=== PATIENT | female | born 1945 | race African-American/Black ===

== ENCOUNTER 2017-04-20 09:10 | Emergency (ER) | payer OTHER ==
[~2017-04-20] VITALS: Ht 162.6 cm; Wt 110.7 kg
[~2017-04-20 09:10] MED LIST: ADVIN25/60 INH; ALBUAER INH; ASPI-232 PO; CARV12.52 PO; CTP1CL PO; GLYB5TAB3 PO; INSDGI SC; LSN/20125 PO; MULTTAB5 PO; NIFE90TA27 PO; OMEGCAP2 PO; PRAV40TA PO; SERT100T PO; SITA100T3 PO; TRAM-453 PO; TYLOTC500 PO; ZNT/150 PO
[2017-04-20 09:13] VITALS: TEMP 37.1; Ht 162.6 cm; Wt 110.7 kg
[2017-04-20] MEDS ORDERED: OXYCODONE HCL IR 5 MG TAB (IMMEDIATE RELEASE) PO STA (09:33)
[2017-04-20] MEDS ORDERED: ONDANSETRON 4MG OD TAB PO STA (10:08)
[2017-04-20 10:11] LABS: BASO % 0.2 %; BASO ABS # 0.02 K/uL (0-0.2); COMPLETE YES; EOS % 0.7 %; HEMATOCRIT 37.7 % (37-47); IG% 0.2 %; LYMPH % 27.8 %; LYMPH ABS # 2.65 K/uL (1.2-3.4); MEAN CELL VOLUME 82.5 fL (80-100); MEAN CORPUSCULAR HEMOGLOBIN 27.4 pg (25-34); MEAN CORPUSCULAR HGB CONC 33.2 g/dl (32-36); MEAN PLATELET VOLUME 10.8 fL (7.4-10.4); MONO % 4.2 %; NEUT % 66.9 %; PLATELET COUNT 224 K/uL (130-400); RED BLOOD COUNT 4.57 M/uL (4.2-5.4); WHITE BLOOD COUNT 9.54 K/uL (4.8-10.8)
[2017-04-20 10:30] LABS: BUN/CREATININE RATIO 14.9 (10-20); CALCIUM 9.7 mg/dl (8.5-10.1); CREATININE 0.88 mg/dl (0.60-1.20); POTASSIUM 4.1 mmol/L (3.5-5.1)
--- NOTE | 2017-04-20 10:31 | DIAGNOSTIC IMAGING REPORT ---
L-SPINE MIN 4 VIEWS ROUTINE HISTORY: Pain Lower L back pain COMPARISON: None. FINDINGS: There is no fracture. No subluxation. Moderate degenerative disc change throughout IMPRESSION: No fracture or subluxation within the lumbar spine. Moderate degenerative change. The above report was generated using voice recognition software. It may contain grammatical, syntax or spelling errors. Electronically signed by: Elton Ceballos M.D. 04/20/2017 10:30 AM Dictated Date/Time: 04/20/2017 10:29 AM
[2017-04-20] MEDS ORDERED: GLC/500 PO (10:32)
[2017-04-20 10:33] LABS: ALB/GLOB RATIO 0.9 (0.9-2)
[2017-04-20] MEDS ORDERED: PRAV80TA2 PO (10:34)
[2017-04-20] MEDS ORDERED: INSDGIPEN SC (10:34)
[2017-04-20] MEDS ORDERED: GLIM4TAB2 PO (10:34)
[2017-04-20 11:24] LABS: URINE APPEARANCE CLEAR (CLEAR); URINE BILIRUBIN NEG (NEG); URINE COLOR YELLOW; URINE NITRITE NEG (NEG); UROBILINOGEN NEG (NEG); ZZUR CULT IF INDIC CLEAN CATCH NO
[2017-04-20 11:29] LABS: MANUAL MICROSCOPIC REQUIRED? NO; REVIEW REQ? NO
[2017-04-20] MEDS ORDERED: OXYC1TAB3 PO (12:28)
--- NOTE | 2017-04-20 12:29 | EMERGENCY ROOM VISIT NOTE ---
History First contact with patient: 09:24 Chief Complaint: BACK PAIN Stated Complaint: LEFT SIDE/BACK PAIN History of Present Illness The patient is a 71 year old female who presents to the Emergency Room via private vehicle with complaints of "left side/back pain". The patient states that she woke up yesterday morning with left-sided posterior back pain that is worse with movement. It also radiates down her left leg. She states that she thought it could be kidney problems and drink lots of water but still persists. She states now retired she moves the pain is worse. There is a positive history of kidney stones. She denies any urinary symptoms, fevers, chills, abdominal pain. There is no new chest pain or shortness of breath. No numbness or tingling in the genital region. No cauda equina syndrome symptoms. Review of Systems A complete 10-point Review of Systems was discussed with the patient, with pertinent positives and negatives listed in the History of Present Illness. All remaining Review of Systems questions can be considered negative unless otherwise specified. Past Medical/Surgical History Diverticulitis, renal calculi Family History No pertinent Social History Smoking Status: Never Smoker Marital Status: Housing Status: lives with significant other Occupation Status: retired Current/Historical Medications Scheduled Aspirin (Aspir-81), 81 MG PO DAILY Carvedilol (Coreg), 12.5 MG PO BID Fluticasone Prop/Salmeterol (Advair Diskus 250/50 60 Dose), 2 PUFF INH BID Glimepiride (Glimepiride), 4 MG PO DAILY Metformin Hcl (Glucophage), 250 MG PO BID Multiple Vitamins W/ Minerals (Centrum), 1 TAB PO DAILY Nifedipine (Nifedipine Er), 90 MG PO BID Polo-3 Fatty Acids (Fish Oil), 1,200 MG PO DAILY Pravastatin Sodium (Pravastatin Sodium), 80 MG PO DAILY Sertraline Hcl (Zoloft), 50 MG PO DAILY Scheduled PRN Clonidine Hcl (Catapres), 0.1 MG PO DAILY PRN Insulin Glargine (Lantus Solostar), 1 DOSE SC AMPM PRN for PER SLIDING SCALE Oxycodone Ir (Roxicodone Ir), 1-2 TAB PO Q4H PRN for Pain Physical Exam Vital Signs Date Time Temp Pulse Resp B/P (MAP) Pulse Ox O2 Delivery O2 Flow Rate FiO2 11/30/17 12:53 65 18 184/78 98 Room Air 04/20/17 10:53 67 20 180/93 95 04/20/17 09:13 37.1 79 18 190/130 96 Room Air Physical Exam VITAL SIGNS - Vital signs and nursing notes were reviewed. Stable, hypertensive. GENERAL -71-year-old female appearing her stated age who is in no acute distress. Communicates well with provider and answers questions appropriately. SKIN - Without rashes. No petechial rashes. HEAD - NC/AT. EYES - Sclera anicteric. EARS - No deformities of external structures noted on gross examination bilaterally. LUNGS - Chest wall symmetric without accessory muscle use, intercostals retractions, or central cyanosis. Normal vesicular breath sounds CTA B/L. No wheezes, rales, or rhonchi appreciated. CARDIAC - RRR with S1/S2. No murmur, rubs, or gallops appreciated. ABDOMEN - Abdominal contour normal without pulsations or visible masses. BS normoactive all four quadrants. No tenderness, palpable masses, hepatosplenomegaly, or ascites noted. EXTREMITIES - No clubbing or peripheral cyanosis. No pretibial edema present. The back elicits tenderness upon palpation of the left inferior lumbar paraspinous musculature. It is worse with range of motion and palpation. +5/5 strength noted in UE/LE bilaterally. NEUROLOGIC - Cranial nerves II through XII grossly intact. Medical Decision & Procedures ER Provider Diagnostic Interpretation: [~ rep ct add3]] ABD/PELVIS WITHOUT FOR STONE CLINICAL HISTORY: 71 years-old Female presenting with L flank pain. TECHNIQUE: Multidetector CT of the abdomen and pelvis was performed without the use of intravenous contrast. IV contrast: None. A dose lowering technique was used consistent with the principles of ALARA (as low as reasonably achievable). COMPARISON: None. CT DOSE (mGy.cm): The estimated cumulative dose is 1580.28 mGy.cm. FINDINGS: Skilled Nursing Facilities Professional topogram: Cholecystectomy clips noted. Lung bases: Minimal dependent changes likely atelectasis. Coronary artery calcification. Normal heart size. Few nonspecific pericardial subcentimeter lymph nodes. No pericardial or pleural effusion. Liver: Normal morphology. Normal density. Surgical clips or surgical material centrally within the liver may relate to prior liver injury or cholecystectomy. Biliary: Mild biliary ductal prominence likely a reservoir effect in the post cholecystectomy state. Gallbladder surgically absent. Pancreas: Normal noncontrast appearance. Spleen: Normal noncontrast appearance. Adrenal glands: Mild nodular thickening of the left adrenal gland, nonspecific. Right adrenal gland normal. Kidneys and ureters: Normal noncontrast appearance. No nephrolithiasis. No hydronephrosis. Normal ureters. Bladder: Mild circumference of bladder wall thickening. Pelvic organs: Calcified fibroid uterus. Normal ovaries. Bowel: Limited diverticulosis of the distal descending and sigmoid colon. Mild stool burden in the more proximal colon. The appendix is normal. No bowel obstruction. Peritoneal cavity: No free fluid or intraperitoneal gas. Lymph nodes: No gross lymphadenopathy allowing for noncontrast technique. Vasculature: Atherosclerosis of the normal caliber abdominal aorta. Abdominal wall: Midline incision suggested in the infraumbilical region. Few intramammary lymph nodes also suggested in the left breast. Nonspecific infiltration of the subcutaneous tissue in the lumbar region. Musculoskeletal: Degenerative changes of the spine. IMPRESSION: 1. Mild circumferential bladder wall thickening could suggest cystitis. Correlate with urinalysis. 2. No nephrolithiasis or other evidence of acute intra-abdominal pathology. Electronically signed by: Jhon Gonzalez M.D. 04/20/2017 12:38 PM Dictated Date/Time: 04/20/2017 12:28 PM L-SPINE MIN 4 VIEWS ROUTINE HISTORY: Pain Lower L back pain COMPARISON: None. FINDINGS: There is no fracture. No subluxation. Moderate degenerative disc change throughout IMPRESSION: No fracture or subluxation within the lumbar spine. Moderate degenerative change. The above report was generated using voice recognition software. It may contain grammatical, syntax or spelling errors. Electronically signed by: Elton Ceballos M.D. 04/20/2017 10:30 AM Dictated Date/Time: 04/20/2017 10:29 AM Laboratory Results 04/20/17 10:00 Red Blood Count 4.57, Mean Corpuscular Volume 82.5, Mean Corpuscular Hemoglobin 27.4, Mean Corpuscular Hemoglobin Concent 33.2, Mean Platelet Volume 10.8, Neutrophils (%) (Auto) 66.9, Lymphocytes (%) (Auto) 27.8, Monocytes (%) (Auto) 4.2, Eosinophils (%) (Auto) 0.7, Basophils (%) (Auto) 0.2, Neutrophils # (Auto) 6.38, Lymphocytes # (Auto) 2.65, Monocytes # (Auto) 0.40, Eosinophils # (Auto) 0.07, Basophils # (Auto) 0.02 04/20/17 10:00 Test 04/20/17 10:00 04/20/17 11:07 White Blood Count 9.54 K/uL (4.8-10.8) Red Blood Count 4.57 M/uL (4.2-5.4) Hemoglobin 12.5 g/dL (12.0-16.0) Hematocrit 37.7 % (37-47) Mean Corpuscular Volume 82.5 fL (80-100) Mean Corpuscular Hemoglobin 27.4 pg (25-34) Mean Corpuscular Hemoglobin Concent 33.2 g/dl (32-36) Platelet Count 224 K/uL (130-400) Mean Platelet Volume 10.8 fL (7.4-10.4) Neutrophils (%) (Auto) 66.9 % Lymphocytes (%) (Auto) 27.8 % Monocytes (%) (Auto) 4.2 % Eosinophils (%) (Auto) 0.7 % Basophils (%) (Auto) 0.2 % Neutrophils # (Auto) 6.38 K/uL (1.4-6.5) Lymphocytes # (Auto) 2.65 K/uL (1.2-3.4) Monocytes # (Auto) 0.40 K/uL (0.11-0.59) Eosinophils # (Auto) 0.07 K/uL (0-0.5) Basophils # (Auto) 0.02 K/uL (0-0.2) RDW Standard Deviation 41.3 fL (36.4-46.3) RDW Coefficient of Variation 13.7 % (11.5-14.5) Immature Granulocyte % (Auto) 0.2 % Immature Granulocyte # (Auto) 0.02 K/uL (0.00-0.02) Anion Gap 11.0 mmol/L (3-11) Est Creatinine Clear Calc Drug Dose 70.4 ml/min Estimated GFR () 76.1 Estimated GFR (Non- 65.6 BUN/Creatinine Ratio 14.9 (10-20) Calcium Level 9.7 mg/dl (8.5-10.1) Total Bilirubin 0.5 mg/dl (0.2-1) Aspartate Amino Transf (AST/SGOT) 11 U/L (15-37) Alanine Aminotransferase (ALT/SGPT) 21 U/L (12-78) Alkaline Phosphatase 83 U/L (45-117) Total Protein 8.1 gm/dl (6.4-8.2) Albumin 3.8 gm/dl (3.4-5.0) Globulin 4.3 gm/dl (2.5-4.0) Albumin/Globulin Ratio 0.9 (0.9-2) Urine Color YELLOW Urine Appearance CLEAR (CLEAR) Urine pH 5.0 (4.5-7.5) Urine Specific [place] 1.020 (1.000-1.030) Urine Protein NEG (NEG) Urine Glucose (UA) NEG (NEG) Urine Ketones NEG (NEG) Urine Occult Blood NEG (NEG) Urine Nitrite NEG (NEG) Urine Bilirubin NEG (NEG) Urine Urobilinogen NEG (NEG) Urine Leukocyte Esterase NEG (NEG) Medications Administered Medications (Trade) Dose Ordered Sig/Arpita Route Start Time Stop Time Status Last Admin Dose Admin Oxycodone HCl (Roxicodone Immediate Rel Tab) 5 mg NOW STAT PO 04/20/17 09:33 04/20/17 09:34 DC 04/20/17 09:47 5 MG Ondansetron HCl (Zofran Odt) 4 mg NOW STAT PO 04/20/17 10:08 04/20/17 10:09 DC 04/20/17 10:14 4 MG Medical Decision Patient was seen and evaluated as above. She presents to us today with left lower lumbar pain. It is reproducible on exam and worse with range of motion. I suspect lumbar strain. She is hypertensive. IV access was initiated, and the above workup was performed. Patient's CBC reveals no concerning abnormality. Metabolic panel no acute process. Random glucose is high at 228. Urine is negative. Lumbar spine x-ray negative. The decision was made to obtain a CT of the abdomen and pelvis to rule out kidney stone. This was negative for you process essentially. Although there was mild bladder wall thickening I do not suspect cystitis as she does not have any evidence on her urinalysis or symptom base. I do suspect again she most likely has a lumbar strain. She was treated here with oxycodone and will be given a short course of this. CMP was reviewed and no red flags were identified. Case was discussed with the attending physician. She is to follow regarding her elevated blood pressure that was found here which I believe secondary to her pain but she is to follow up, and her medication list was reviewed. She was felt stable for outpatient management. She was happy with plan of care. She was educated upon management, educated upon worrisome symptoms which to return, had questions as per discharge, and was discharged home in good condition. In evaluation treatment this patient the following differential diagnoses entertained: Lumbar strain, sprain, fracture, dislocation, renal calculi, and acute intra-abdominal abnormality, among others. Impression Primary Impression: Strain of lumbar region Departure Information Dispostion Home / Self-Care Condition GOOD Prescriptions Oxycodone Ir (Roxicodone Ir) 5 Mg Tab 1-2 TAB PO Q4H Y for Pain, #18 TAB For Initial Treatment Prov: Del Westfall PA-C 04/20/17 Referrals Phyllis Quintanilla M.D. (PCP) Patient Instructions [facility] Additional Instructions You have been treated in the Emergency Department for Back Pain. You have received pain medicine in the emergency department which impairs your ability to operate a vehicle. It is illegal for you to drive after receiving these medicines. You have been prescribed Oxy IR to be used for pain control. This is a narcotic medication. You cannot drive or consume alcohol while on this medicine. This medicine should only be used for pain that cannot be controlled with over-the- counter pain medicines. For pain control, you can use the following [id number] medicines: - Regular strength (325mg/tab) Tylenol (acetaminophen) 2 tabs every 4-6 hours as needed. Do not exceed 12 tablets in a 24 hour period. Avoid taking more than 3 grams (3000 mg) of Tylenol per day. This includes any other sources of acetaminophen you may take on a regular basis. PLEASE DO NOT TAKE WITH NORCO OR HYDROCODONE PREVIOUSLY PRESCRIBED If this is an acute injury, ice can be applied to the area of pain for the first 3 days to help decrease pain and inflammation. After the first 3 days, a heating pad can be used over the area for continued soothing relief. You should schedule a follow-up appointment in 2-3 days with your Primary Care Provider for further evaluation and treatment of your back pain. Return to the Emergency Department if your current symptoms worsen despite treatment course outlined above, or if you develop any of the following symptoms : intractable pain despite aforementioned treatment course, loss of control of your bowel or bladder, numbness or tingling in your groin, or development of a fever.
--- NOTE | 2017-04-20 12:39 | DIAGNOSTIC IMAGING REPORT ---
ABD/PELVIS WITHOUT FOR STONE CLINICAL HISTORY: 71 years-old Female presenting with L flank pain. TECHNIQUE: Multidetector CT of the abdomen and pelvis was performed without the use of intravenous contrast. IV contrast: None. A dose lowering technique was used consistent with the principles of ALARA (as low as reasonably achievable). COMPARISON: None. CT DOSE (mGy.cm): The estimated cumulative dose is 1580.28 mGy.cm. FINDINGS: Store Facility Technician topogram: Cholecystectomy clips noted. Lung bases: Minimal dependent changes likely atelectasis. Coronary artery calcification. Normal heart size. Few nonspecific pericardial subcentimeter lymph nodes. No pericardial or pleural effusion. Liver: Normal morphology. Normal density. Surgical clips or surgical material centrally within the liver may relate to prior liver injury or cholecystectomy. Biliary: Mild biliary ductal prominence likely a reservoir effect in the post cholecystectomy state. Gallbladder surgically absent. Pancreas: Normal noncontrast appearance. Spleen: Normal noncontrast appearance. Adrenal glands: Mild nodular thickening of the left adrenal gland, nonspecific. Right adrenal gland normal. Kidneys and ureters: Normal noncontrast appearance. No nephrolithiasis. No hydronephrosis. Normal ureters. Bladder: Mild circumference of bladder wall thickening. Pelvic organs: Calcified fibroid uterus. Normal ovaries. Bowel: Limited diverticulosis of the distal descending and sigmoid colon. Mild stool burden in the more proximal colon. The appendix is normal. No bowel obstruction. Peritoneal cavity: No free fluid or intraperitoneal gas. Lymph nodes: No gross lymphadenopathy allowing for noncontrast technique. Vasculature: Atherosclerosis of the normal caliber abdominal aorta. Abdominal wall: Midline incision suggested in the infraumbilical region. Few intramammary lymph nodes also suggested in the left breast. Nonspecific infiltration of the subcutaneous tissue in the lumbar region. Musculoskeletal: Degenerative changes of the spine. IMPRESSION: 1. Mild circumferential bladder wall thickening could suggest cystitis. Correlate with urinalysis. 2. No nephrolithiasis or other evidence of acute intra-abdominal pathology. Electronically signed by: Jhon Gonzalez M.D. 04/20/2017 12:38 PM Dictated Date/Time: 04/20/2017 12:28 PM
[2017-04-20 12:53] VITALS: BP 184/78; PULSE 65; O2SAT 98
== END 2017-04-20 13:25 | disposition home or self-care (01) ==
LOC: C.EDB 09:13 → C.EDC 13:25
DX: S39.012A Strain of muscle, fascia and tendon of lower back, initial encounter (principal); X58.XXXA Exposure to other specified factors, initial encounter; K57.92 Diverticulitis of intestine, part unspecified, without perforation or abscess without bleeding; Z87.442 Personal history of urinary calculi; Z79.82 Long term (current) use of aspirin; Z79.84 Long term (current) use of oral hypoglycemic drugs; Z79.899 Other long term (current) drug therapy

== ENCOUNTER 2020-01-15 15:05 | Inpatient (IN) ==
--- NOTE | 2020-01-15 15:38 | Emergency Department Note ---
Impression & Plan SOB (shortness of breath), Weakness, Near syncope, Bradycardia ED Provider Note NAME: VEENA ROBBINS AGE: 74 SEX: F : 1945 ARRIVES VIA: Walk-In INFORMANT: [Patient][friend] ED PROVIDER(S): [Braydon Butler MD] CHIEF COMPLAINT: Shortness of breath and weakness HISTORY OF PRESENT ILLNESS: The patient is a 74-year-old female who has had multiple weeks of fatigue and shortness of breath. She has been dizzy, tired. Exertion makes her symptoms worse. She has had some occasional chest pain from time to time. The patient was taken off of lisinopril and some diabetic medications recently. There have been no medications added. Today, the patient was noted to have a pulse in the 30s. She was sent to this hospital for evaluation. She had been at her primary doctor's office earlier. The patient has no history of ID or bradycardia. She does take Coreg though on a daily basis. There has been no fever, no cough or cold or congestion. No urinary complaints. There has been no syncope. REVIEW OF SYSTEMS: See HPI for pertinent positives and negatives. A total of ten systems were reviewed and were otherwise negative. PMHx/PSHx: See Below SOCIAL HISTORY: See Below. PHYSICAL EXAM: GENERAL: Patient is in no acute distress. HEENT: No acute trauma, normocephalic atraumatic, mucous membranes moist, no nasal congestion, no scleral icterus. NECK: No stridor, no adenopathy, no meningismus, trachea is midline. LUNGS: Clear to auscultation bilaterally, no wheeze, no rhonchi, breath sounds equal. HEART: Bradycardic, slight systolic murmur. There is a regular rhythm. ABDOMEN: Soft, nontender, bowel sounds positive, no hernias, no peritonitis. EXTREMITIES: No cyanosis, mild bilateral pedal edema, full range of motion of all the joints without pain or difficulty, no signs for acute trauma. NEUROLOGIC: Oriented x 3, no acute motor or sensory deficits, no focal weakness. SKIN: No rash, no jaundice, no diaphoresis. DIFFERENTIAL DIAGNOSIS: Infection, dehydration, metabolic abnormality, sick sinus syndrome, medication reaction, AV block, bradycardia, hypo/hyperglycemia, electrolyte disturbance, anemia, hypoxia, cardiac sources, intracerebral event, toxicologic, neurologic, as well as other pathologies. EMERGENCY DEPARTMENT COURSE/PROCEDURES: ECG: Indication was shortness of breath. The ECG shows a significant bradycardia with a rate of 39. The rhythm does seem sinus. The QTc is 405. There is no ST elevation, no PVCs. Continuous Cardiac Monitoring: An order was placed for continuous cardiac monitoring. The monitor shows a rate of 34 with sinus bradycardia. MEDICAL DECISION MAKING: There is no leukocytosis or concerning anemia. There is a normal platelet count. There is a slight elevation to the creatinine 1.38. No concerning electrolyte abnormality. No liver enzyme elevation. The patient appears to be in a euthyroid state. ECG shows a severe sinus bradycardia, no acute ischemic changes. Cardiac enzyme testing x1 is not consistent with acute cardiac injury. Chest film does not show pneumonia, pneumothorax or CHF. On exam, the patient was bradycardic, she was not hypotensive. She was not febrile. She was not hypoxic. The patient presents with fatigue and weakness. She was initially quite br adycardic on the monitor. The patient received IV glucagon, 2 mg. This was recommended by cardiology. This did improve her heart rate to the 60s. The fact that the glucagon made some improvement in the heart rate suggests the beta-kenney therapy may be responsible for the bradycardia. Cardiology was consulted, they recommended the glucagon as mentioned above. The patient is going to be hospitalized. At this point, the beta-kenney therapy seems the likely cause of her bradycardia. Further monitoring is required. Past Med/Surg History Medical History Diabetes mellitus Social History Smoking Status: Never smoker Feels Safe at Home: Yes Allergies Allergies Allergy/AdvReac Type Severity Reaction Status Date / Time No Known Allergies Allergy Mild NONE Unverified 08/15/10 00:12 Home Meds Home Medications Medication Instructions Recorded Confirmed ASPIRIN (ASPIR-81) 81 mg PO DAILY #0 03/18/13 CARVEDILOL (COREG) 12.5 mg PO BID #0 tab 03/18/13 CLONIDINE HCL (Catapres) 0.1 mg PO DAILY PRN #0 tab 03/18/13 FLUTICASONE PROP/SALMETEROL 2 puff INHALATION BID #0 inhaler 03/18/13 (Advair Diskus 250/50 60 Dose) MULTIPLE VITAMINS W/ MINERALS 1 tab PO DAILY #0 03/18/13 (CENTRUM) NIFEDIPINE (NIFEDIPINE ER) 90 mg PO BID #0 03/18/13 OMEGA-3 FATTY ACIDS (FISH OIL) 1,200 mg PO DAILY #0 03/18/13 SERTRALINE HCL (ZOLOFT) 50 mg PO DAILY #0 tab 03/18/13 GLIMEPIRIDE 4 mg PO DAILY 90 Days #90 tab 04/20/17 Insulin Glargine (Lantus Solostar) 1 dose SC AMPM PRN #0 pen 04/20/17 METFORMIN HCL (GLUCOPHAGE) 250 mg PO BID #0 tab 04/20/17 PRAVASTATIN SODIUM 80 mg PO DAILY 90 Days #90 tab 04/20/17 Results & Data (ED) Vital Signs Vital Signs - 24 hr 01/15/20 15:10 01/15/20 15:33 01/15/20 15:36 Temperature 36.6 C Temperature Source Oral Pulse Rate 38 L Pulse Rate [Apical] 34 L Respiratory Rate 28 H 18 Respiratory Effort / Characteristics Short of Breath Non-Labored Respiratory Depth Normal Blood Pressure 152/81 H Blood Pressure [Right Arm] 149/79 H Blood Pressure Mean 104 Blood Pressure Mean [Right Arm] 102 Pulse Oximetry 98 99 99 Oxygen Delivery Method Room Air Room Air Room Air Sepsis Recent Fever Within 48 Hours No Sepsis New/Unexplained Change in Mental Status No Sepsis Action Taken by Nursing No Action Required 01/15/20 15:39 01/15/20 16:25 01/15/20 16:56 Temperature Temperature Source Pulse Rate Pulse Rate [Apical] 64 64 Respiratory Rate 18 18 Respiratory Effort / Characteristics Non-Labored Non-Labored Respiratory Depth Normal Normal Blood Pressure Blood Pressure [Right Arm] 152/80 H 147/94 H Blood Pressure Mean Blood Pressure Mean [Right Arm] 104 111 Pulse Oximetry 99 98 98 Oxygen Delivery Method Room Air Room Air Room Air Sepsis Recent Fever Within 48 Hours Sepsis New/Unexplained Change in Mental Status Sepsis Action Taken by Group Home Medications Current Medication List: was personally reviewed by me Laboratory Data Attestation: I reviewed the patient's lab results. Result diagrams: 01/15/20 15:32 01/15/20 15:32 Lab Results 01/15/20 01/15/20 Range/Units 15:32 15:32 WBC 8.61 (4.8-10.8) K/uL RBC 4.66 (4.2-5.4) M/uL Hgb 12.8 (12.0-16.0) g/dL Hct 38.8 (37-47) % MCV 83.3 (80-100) fL MCH 27.5 (25-34) pg MCHC 33.0 (32-36) g/dL RDW Std Deviation 41.3 (36.4-46.3) fL RDW Coeff of Keyur 13.8 (11.5-14.5) % Plt Count 211 (130-400) K/uL MPV 10.7 H (7.4-10.4) fL Immature Gran % (Auto) 0.1 % Neut % (Auto) 46.8 % Lymph % (Auto) 46.1 % Glades % (Auto) 5.3 % Eos % (Auto) 1.6 % Baso % (Auto) 0.1 % Neut # (Auto) 4.02 (1.4-6.5) K/uL Lymph # (Auto) 3.97 H (1.2-3.4) K/uL Glades # (Auto) 0.46 (0.11-0.59) K/uL Eos # (Auto) 0.14 (0-0.5) K/uL Baso # (Auto) 0.01 (0-0.2) K/uL Immature Gran # (Auto) 0.01 (0.00-0.02) K/uL Sodium 135 L (136-145) mmol/L Potassium 4.4 (3.5-5.1) mmol/L Chloride 104 (98-107) mmol/L Carbon Dioxide 24 (21-32) mmol/L Anion Gap 7.0 (3-11) BUN 29 H (7-18) mg/dl Creatinine 1.38 H (0.6-1.2) mg/dl Est Cr Clr Drug Dosing 40.1 ml/min Est GFR ( Amer) 43.2 Est GFR (Non-Af Amer) 37.3 BUN/Creatinine Ratio 21.0 H (10-20) Glucose 203 H (70-99) mg/dl Calcium 9.3 (8.5-10.1) mg/dl Magnesium 2.2 (1.8-2.4) mg/dl Total Bilirubin 0.4 (0.2-1) mg/dl AST 12 L (15-37) U/L ALT 21 (12-78) U/L Alkaline Phosphatase 105 (45-117) U/L Troponin I < 0.015 (0-0.045) ng/ml Total Protein 8.5 H (6.4-8.2) gm/dl Albumin 3.8 (3.4-5.0) gm/dl Globulin 4.6 H (2.5-4.0) gm/dl Albumin/Globulin Ratio 0.8 L (0.9-2) TSH 2.820 (0.300-4.500) uIu/ml Administered Medications Discontinued Medications Glucagon (Glucagon For Inj 1 Mg Vial) Confirm Administered Dose 2 mg .ROUTE .STK-MED ONE Stop: 01/15/20 15:51 Last Admin: 01/15/20 15:57 Dose: 2 mg Documented by: [id number] Glucagon 2 mg/ Syringe 2 mls @ 1 mls/min IV NOW STA Stop: 01/15/20 15:43 Last Admin: 01/15/20 15:57 Dose: Not Given Documented by: [id number] Imaging Data Radiologist's Impression: XR chest 1V portable CLINICAL HISTORY: weakness COMPARISON STUDY: 03/18/2013 FINDINGS: The heart is borderline enlarged. There is no focal pulmonary consolidation. There are no pleural effusions. Mild interstitial prominence may relate to technical factors given the patient's body habitus. It is difficult to exclude an element of mild pulmonary vascular congestion. There are no significant pleural effusions. IMPRESSION: 1. No evidence of focal pulmonary consolidation 2. Mild interstitial prominence, a nonspecific finding which could relate to technical factors given the patient's body habitus Blood Pressure Blood Pressure Findings: Elevated blood pressure Blood Pressure Disposition: further management by hospitalist Discharge Plan Visit Data Chief Complaint: Chest Pain Stated Complaint: CHEST PAIN, HEART IS NOT PUMPING CORRECTLY ED Provider: Braydon Butler Discharge Problem: SOB (shortness of breath), Weakness, Near syncope, Bradycardia Patient Disposition: Admitted As Inpatient Condition: Fair Forms Stand Alone Forms: [facility] Referrals Referrals: Phyllis Quintanilla MD [Primary Care Provider] -
[2020-01-15] MEDS ORDERED: GLUCAGON 2 MG in SYRINGE 0 ML IV STA (15:42)
--- NOTE | 2020-01-15 15:46 | XRay Report ---
XR chest 1V portable CLINICAL HISTORY: weakness COMPARISON STUDY: 03/18/2013 FINDINGS: The heart is borderline enlarged. There is no focal pulmonary consolidation. There are no p leural effusions. Mild interstitial prominence may relate to technical factors given the patient's senait dy habitus. It is difficult to exclude an element of mild pulmonary vascular congestion. There are no significant pleural effusions. IMPRESSION: 1. No evidence of focal pulmonary consolidation 2. Mild interstitial prominence, a nonspecific finding which could relate to technical factors given the patient's body habitus ACT 112: Negative or not required by law. Electronically signed by: Garret Gallagher M.D. 01/15/2020 3:45 PM
[2020-01-15 15:48] LABS: Basophils # (auto) 0.01 K/uL (0-0.2); Basophils % (auto) 0.1 %; Eosinophils # (auto) 0.14 K/uL (0-0.5); Eosinophils % (auto) 1.6 %; Hematocrit (blood only) 38.8 % (37-47); Hemoglobin 12.8 g/dL (12.0-16.0); Immature Granulocytes # (auto) 0.01 K/uL (0.00-0.02); Immature Granulocytes % (auto) 0.1 %; Lymphocytes # (auto) 3.97 K/uL (1.2-3.4); Lymphocytes % (auto) 46.1 %; Mean Corpuscular Hemoglobin 27.5 pg (25-34); Mean Corpuscular Volume 83.3 fL (80-100); Mean Platelet Volume 10.7 fL (7.4-10.4); Monocytes # (auto) 0.46 K/uL (0.11-0.59); Monocytes % (auto) 5.3 %; Neutrophils # (auto) 4.02 K/uL (1.4-6.5); Neutrophils % (auto) 46.8 %; Platelet Count 211 K/uL (130-400); RDW Coefficient of Variation 13.8 % (11.5-14.5); RDW Standard Deviation 41.3 fL (36.4-46.3); Red Blood Count 4.66 M/uL (4.2-5.4); White Blood Count 8.61 K/uL (4.8-10.8)
[2020-01-15] MEDS ORDERED: GLUCAGON FOR INJ 1 MG VIAL ONE (15:50)
[2020-01-15 16:06] LABS: Alanine Aminotransferase 21 U/L (12-78); Albumin Level 3.8 gm/dl (3.4-5.0); Aspartate Aminotransferase 12 U/L (15-37); Blood Urea Nitrogen 29 mg/dl (7-18); Calcium 9.3 mg/dl (8.5-10.1); Carbon Dioxide 24 mmol/L (21-32); Chloride 104 mmol/L (98-107); Creatinine Clr Calc Pharmacy 40.1 ml/min; Est GFR (African American) 43.2; Est GFR (Non-African American) 37.3; Glucose 203 mg/dl (70-99); Magnesium 2.2 mg/dl (1.8-2.4); Potassium 4.4 mmol/L (3.5-5.1); Sodium 135 mmol/L (136-145)
[2020-01-15 16:17] LABS: Albumin Globulin Ratio 0.8 (0.9-2); Alkaline Phosphatase 105 U/L (45-117); Bilirubin,Total 0.4 mg/dl (0.2-1); Globulin 4.6 gm/dl (2.5-4.0); Total Protein 8.5 gm/dl (6.4-8.2); Troponin I < 0.015 ng/ml (0-0.045)
--- NOTE | 2020-01-15 16:48 | Electrocardiogram Report ---
Test Reason : Blood Pressure : / mmHG Vent. Rate : 039 BPM Atrial Rate : 039 BPM P-R Int : 158 ms QRS Dur : 086 ms QT Int : 504 ms P-R-T Axes : 073 016 028 degrees QTc Int : 405 ms Marked sinus bradycardia or junctional escape rhythm Abnormal ECG When compared with ECG of 18-MAR-2013 11:08, Vent. rate has decreased BY 36 BPM Confirmed by Jd Tompkins ([id number]) on 01/15/2020 4:47:38 PM Referred By: Narinder Gooden Confirmed By:Jd Tompkins
--- NOTE | 2020-01-15 19:40 | History & Physical Report ---
Date of Service January 15, 2020 Assessment & Plan (1) Symptomatic bradycardia: This is a 74-year-old female who has significant past medical history of T2DM, HTN, HLD, CKD stage III, history of PSVT, asthma, GERD, diabetic retinopathy and polyneuropathy, osteoporosis and depression who presents to ED at the referral of PCP secondary to bradycardia. In ED patient was symptomatic and significantly bradycardic in the 30s. She received 2 g IV glucagon which did improve heart rate to 50s and 60s. During my evaluation she complained of acute onset dizziness and lightheadedness. At that time heart monitor read asystole, but patient maintained consciousness and did have a palpable pulse. Within 10 to 20 seconds her heart rate improved into the 30s, 40s and 50s. Pacer pads immediately placed, but not required. She did remain modestly hypertensive while in ED, BP 170/94. Lab work revealed CBC that was generally unremarkable, sodium 135, K3.4, BUN 29, creatinine 1.38, glucose 203, TSH WNL. X-ray was negative for any acute abnormality. admit to PCU cardiology consulted pacer pads in place in event patient were to saida down If she becomes bradycardic < 40 would use atropine check lyme titer, pt denies tick bite cycle trops, echo (2) Chest pain: pt has been complaining of CP off/on for several months Follows. Dr. Gooden had nuclear stress test 12/15 which was unremarkable per patient (unable to access report in EPIC) will cycle troponins, repeat echo in settingof new bradycardia continue asa, statin continue PPI does not appear to be pleuritic or MSK (3) Diabetes mellitus: A1C 10.0 on 12/27/19 Lantus/novolog per protocol expect hyperglycemia in setting off glucagon administration (4) HTN (hypertension): Blood pressure elevated on coreg, nifedipine - hold in setting of acute bradycardia on clonidine prn at HS in setting of acute hypertension and holding home medications will add prn hydralazine for SBP > 180 (5) HLD (hyperlipidemia): continue statin (6) History of PSVT (paroxysmal supraventricular tachycardia): on procardia and coreg hold for now in setting of acute bradycardia (7) CKD (chronic kidney disease) stage 3, GFR 30-59 ml/min: baseline Cr 1.3-1.5 bun/cr stable 29 and 1.38 monitor (8) GERD (gastroesophageal reflux disease): continue PPI (9) Diabetic neuropathy: continue gabapentin (10) Asthma: no acute exac prn albuterol (11) Depression: continue zoloft (12) DVT prophylaxis: SQ heparin Disposition: admit to PCU Follow up: PCP Dr. Quintanilla upon discharge Pt was seen and examined in collaboration with Dr. Reed, please see addendum History of Present Illness Chief Complaint: Referred by PCP due to bradycardia. Primary Care Provider: Phyllis Quintanilla MD This is a 74-year-old female who has significant past medical history of T2DM, HTN, HLD, CKD stage III, history of PSVT, asthma, GERD, diabetic retinopathy and polyneuropathy, osteoporosis and depression who presents to ED at the referral of PCP secondary to bradycardia. According to patient she was feeling dizzy, lightheaded, presyncopal and short of breath today. Her friend who was with her placed a pulse ox on her which showed heart rate in the 30s. She called her PCP and was seen immediately. EKG done in clinic was concerning for junctional bradycardia with heart rate 36. She was then referred to ED and otherwise hemodynamically stable. In ER today she had EKG which revealed a sinus bradycardia. He is on Coreg 12.5 mg and Procardia 90 mg twice daily. Both medications were last taken this morning. In ED she was given 2 g of IV glucagon which in approximately 20 minutes did improve her heart rates into the 50s and 60s. She states over the last several weeks she has been experiencing dizziness described as a spinning sensation for which she has been taking meclizine for, intermittent lightheadedness and presyncope, chest pain with and without exertion and CORTES. She was seen and evaluated by cardiology in clinic and underwent nuclear stress evaluation on 12/15 which was unremarkable. She states chest pain can occur at rest or when she is exerting herself. Chest pain typically resolves within 20 minutes. She also admits to significant amount of stress in life. She is extremely bummed about being mid to hospital as she was supposed to travel to [place] in 2 days for a wedding. She otherwise denies any recent illness, fever, chills, sweats, syncope, palpitations, shortness with at rest, cough, hemoptysis, nausea, vomiting, diarrhea, abdominal pain, change in bowel or urinary habits. She been taking medications as prescribed. She states she occasionally is significantly hypertensive at bedtime for which she takes as needed clonidine for. Blood pressure is usually greater than 150 or greater than 110 diastolically. Clonidine improves her pressure. In ED patient was symptomatic and significantly bradycardic in the 30s. She received 2 g IV glucagon which did improve heart rate to 50s and 60s. During my evaluation she complained of acute onset dizziness and lightheadedness. At that time heart monitor read asystole, but patient maintained consciousness and I did feel a palpable pulse. Within 10 to 20 seconds her heart rate improved into the 30s, 40s and 50s. She did remain modestly hypertensive while in ED, BP 170/94. Lab work revealed CBC that was generally unremarkable, sodium 135, K3.4, BUN 29, creatinine 1.38, glucose 203, TSH WNL. X-ray was negative for any acute abnormality. Allergies Allergy/AdvReac Type Severity Reaction Status Date / Time No Known Allergies Allergy Mild NONE Unverified 01/15/20 18:01 Home Medications Home Medications Medication Instructions Recorded Confirmed Type albuterol sulfate 2 puff INHALATION QID PRN 01/15/20 01/15/20 History aspirin 81 mg PO DAILY 01/15/20 01/15/20 History benzonatate 100 mg PO BID PRN 01/15/20 01/15/20 History carvedilol 12.5 mg PO BID 01/15/20 01/15/20 History cetirizine 10 mg PO DAILY PRN 01/15/20 01/15/20 History clonidine HCl 0.1 mg PO DAILY PRN 01/15/20 01/15/20 History fluticasone propion-salmeterol 1 inh INHALATION BID 01/15/20 01/15/20 History [Advair Diskus] gabapentin 100 mg PO TID 01/15/20 01/15/20 History insulin glargine 32 unit SUBCUT BID 01/15/20 01/15/20 History meclizine 25 mg PO TID PRN 01/15/20 01/15/20 History hbxmsqigxhgj-gvqu-riimu acid 1 tab PO DAILY 01/15/20 01/15/20 History [Centrum] nifedipine 90 mg PO BID 01/15/20 01/15/20 History omega 7-sva-pcb-fish oil [Fish Oil] 1 cap PO DAILY 01/15/20 01/15/20 History omeprazole 20 mg PO BID PRN 01/15/20 01/15/20 History pravastatin 80 mg PO QPM 01/15/20 01/15/20 History sertraline 100 mg PO QAM 01/15/20 01/15/20 History Past Med/Surg History Medical History (Updated 01/15/20 @ 19:46 by Hannah Betts PA-C) Asthma CKD (chronic kidney disease) stage 3, GFR 30-59 ml/min Depression Diabetes mellitus Diabetic neuropathy Diabetic retinopathy GERD (gastroesophageal reflux disease) History of PSVT (paroxysmal supraventricular tachycardia) HLD (hyperlipidemia) HTN (hypertension) Osteoporosis Surgical History (Updated 01/15/20 @ 17:28 by Hannah Betts PA-C) History of History of cholecystectomy History of colonoscopy History of esophagogastroduodenoscopy (EGD) History of sinus surgery Family History Father Coronary heart disease, Onset Age: 62 Mother Stroke, Onset Age: 77 Social History (Updated 01/15/20 @ 19:36 by Hannah Betts PA-C) Smoking Status: Never smoker Hx Alcohol Use: No Hx Substance Use: No Preferred Language: Yakut Communication Ability: Effective Beliefs That Will Affect Care: None marital status: / Current Living Situation: Alone Other Information That Helps Us Care for You: No Feels Safe at Home: Yes Safety Concerns: Feels Safe At This Time Review of Systems Review of Systems: All systems reviewed & are unremarkable except as noted in HPI & below Physical Exam 2 Physical Exam: Constitutional: WD/WN, vitals as above, NAD, sitting up in bed, pleasant, conversing easily Head: Normocephalic, Atraumatic Eyes: PERRL, conjunctivae normal, anicteric sclerae ENMT: external ear and nose normal, external ear canal clean and dry, bilateral TMs white with normal anatomic landmarks, oropharynx normal Neck: trachea midline, no thyromegaly normal visual inspection Respiratory: normal respiratory effort, lungs clear to auscultation, no wheeze, rales, rhonchi. Normal insp/exp effort, no accessory muscle use Cardiovascular: Bradycardic rate, regular rhythm, no murmur, no edema Vessels: no JVD or carotid bruit Chest: normal inspection of chest Abdomen: normal bowel sounds, soft, nontender, no hepatosplenomegaly Musculoskeletal: no cyanosis or clubbing, extremities motor strength 5/5 Skin: no rashes, warm and dry normal turgor Neurologic: PERRL, EOMI, accommodation nl, no face palsy, no dysarthria CN's II-XI intact bilaterally and moves all extremities Psychiatric: A+Ox3, euthymic affect Lymphatic: no cervical or axillary lymphadenopathy : deferred Results & Data Results & Data ([facility]) Vital Signs (Past 12 Hours) Vital Signs Temp Pulse Pulse Resp BP BP Pulse Ox 01/15/20 16:56 64 18 147/94 H 98 01/15/20 16:25 64 18 152/80 H 98 01/15/20 15:39 99 01/15/20 15:36 34 L 18 149/79 H 99 01/15/20 15:33 99 01/15/20 15:10 36.6 C 38 L 28 H 152/81 H 98 Laboratory Results Short CBC 01/15/20 01/15/20 Range/Units 15:32 15:32 WBC 8.61 (4.8-10.8) K/uL Hgb 12.8 (12.0-16.0) g/dL Hct 38.8 (37-47) % Plt Count 211 (130-400) K/uL Creatinine 1.38 H (0.6-1.2) mg/dl BMP 01/15/20 15:32 Sodium 135 L Potassium 4.4 Chloride 104 Carbon Dioxide 24 BUN 29 H Creatinine 1.38 H Glucose 203 H Calcium 9.3 Cardiac Enzymes 01/15/20 Range/Units 15:32 Troponin I < 0.015 (0-0.045) ng/ml Liver Function 01/15/20 Range/Units 15:32 Total Bilirubin 0.4 (0.2-1) mg/dl AST 12 L (15-37) U/L ALT 21 (12-78) U/L Alkaline Phosphatase 105 (45-117) U/L Albumin 3.8 (3.4-5.0) gm/dl Diagnostic Findings CXR: IMPRESSION: 1. No evidence of focal pulmonary consolidation 2. Mild interstitial prominence, a nonspecific finding which could relate to technical factors given the patient's body habitus Medications Administered Discontinued Medications Glucagon (Glucagon For Inj 1 Mg Vial) Confirm Administered Dose 2 mg .ROUTE .STK-MED ONE Stop: 01/15/20 15:51 Last Admin: 01/15/20 15:57 Dose: 2 mg Documented by: [id number] Glucagon 2 mg/ Syringe 2 mls @ 1 mls/min IV NOW STA Stop: 01/15/20 15:43 Last Admin: 01/15/20 15:57 Dose: Not Given Documented by: [id number] ECG Rate (beats per minute): 39 Rhythm: sinus bradycardia Code Status & VTE Plan Code Status Full Code VTE Prophylaxis Plan VTE Prophylaxis will be ordered: Yes Supervising Physician Co-Signing Physician Notes Attending Addendum: date of service 01/15/20 care coordinated with CELESTINA Abraham. please refer to her notes for full details, I agree with her notes patient seen and examined, records reviewed by myself as well on exam, patient seen resting in bed, comfortable HR 50s, sinus saida on monitor reports mild chest discomfort- chronic no dyspnea, nausea, dizziness no other symptoms VS noted and reviewed oriented x 3, not in distress, speaks in sentences with no effort nor accessory muscle use bradycardic, regular rhythm, no murmurs clear breath sounds bilaterally non distended, soft, nontender no bipedal edema, erythema, warmth no neuro deficits WBC 8.6 Hg 12.8 Crea 1.3 ASSESSMENT AND PLAN 74 year old female wit history of DM 2, HTN, CKD 3, PSVT presenting with dizziness, bradycardia. SINUS BRADYCARDIA, LIKELY SECONDARY TO CARVEDILOL, HISTORY OF PSVT given IV Glucagon at the ER, HR improved from 30s to 50s discussed with Dr Mario, hold Carvedilol and Nifedipine, observe in Tele check TSH, Lyme CHEST PAIN, CHRONIC atypical, chronic chest discomfort s/p Nuc Stress Test 11/2019 negative troponin x 2 negative, EKG no signs of ischemia from uncontrolled HTN? management note below HTN elevated usually on Carvedilol, Nifedipine--> held for now in light of bradycardia avoiding JUAN DAVID-I in light of crea elevation, CKD 3 PRN Hydralazine ordered monitor other diagnoses and plan of care as per CELESTINA Abraham's notes Nathaniel Reed MD
[2020-01-15] MEDS ORDERED: HydrALAZINE HCL 20 MG/ML VIAL IV ONE (20:11)
[2020-01-15] MEDS ORDERED: POLYETHYLENE (MIRALAX) 17 GM PACK PO PRN (20:11)
[2020-01-15] MEDS ORDERED: MAGNESIUM HYDROXIDE SUSP 30 ML UDC PO PRN (20:11)
[2020-01-15] MEDS ORDERED: CETIRIZINE HCL 10 MG TABLET PO PRN (20:11)
[2020-01-15] MEDS ORDERED: GLUCAGON FOR INJ 1 MG VIAL SQ PRN (20:11)
[2020-01-15] MEDS ORDERED: GLUCOSE 10 TABS/TUBE PO PRN (20:11)
[2020-01-15] MEDS ORDERED: ALUMINUM/MAGNESIUM SUSP 30 ML UDC PO PRN (20:11)
[2020-01-15] MEDS ORDERED: GLUCOSE 40% GEL 15 GM TUBE PO PRN (20:11)
[2020-01-15] MEDS ORDERED: DEXTROSE 50% 50 ML SYRINGE IV PRN (20:11)
[2020-01-15] MEDS ORDERED: ALBUTEROL HFA 8 GM INHALER INH PRN (20:11)
[2020-01-15] MEDS ORDERED: CARBOHYDRATES FOR HYPOGLYCEMIA PO PRN (20:11)
[2020-01-15] MEDS ORDERED: PANTOprazole 40 MG TAB PO PRN (20:16)
[2020-01-15] MEDS ORDERED: ACETAMINOPHEN 325 MG TAB PO ONE (20:30)
[2020-01-15 20:41] LABS: Appearance Urine Clear (Clear); Bacteria Urine Automated 1+ (Negative); Bilirubin Urine Negative (Negative); Blood Urine Negative (Negative); Color Urine Yellow; Epithelial Cell Urine Auto >30 /lpf (0-5); Glucose Urine UA Trace (Negative); Ketones Urine Negative (Negative); Leukocyte Esterase Urine 1+ (Negative); Nitrite Urine Negative (Negative); Protein Urine Negative (Negative); RBC Urine Automated 0-4 /hpf (0-4); Specific Gravity Urine 1.016 (1.000-1.030); Urobilinogen Urine Negative (Negative); pH Urine 5.5 (4.5-7.5)
[2020-01-15] MEDS: PRAVASTATIN SOD 40 MG TAB PO SCH (20:46)
[2020-01-15] MEDS: GABAPENTIN 100 MG CAP PO SCH (20:46)
[2020-01-15] MEDS: INSULIN ASPART 100 UNITS/ML 3 ML PEN SC SCH (20:52)
[2020-01-15] MEDS: INSULIN GLARGINE SOLOSTAR 100 UNITS/ML 3 ML PEN SC SCH (20:52)
[2020-01-15] MEDS: HEPARIN SOD 5,000 UNIT/0.5 ML VIAL SQ SCH (20:53)
[2020-01-15 22:23] LABS: Lyme Ab IgG w/WB Rflx Negative (Negative); Lyme Ab IgM w/WB Rflx Negative (Negative)
[2020-01-15] MEDS: TRAMADOL HCL 50 MG TABLET PO PRN (23:20)
[2020-01-16 01:33] LABS: Basophils # (auto) 0.01 K/uL (0-0.2); Basophils % (auto) 0.1 %; Eosinophils # (auto) 0.16 K/uL (0-0.5); Eosinophils % (auto) 1.8 %; Hematocrit (blood only) 35.1 % (37-47); Hemoglobin 11.6 g/dL (12.0-16.0); Immature Granulocytes # (auto) 0.01 K/uL (0.00-0.02); Immature Granulocytes % (auto) 0.1 %; Lymphocytes # (auto) 4.07 K/uL (1.2-3.4); Lymphocytes % (auto) 46.1 %; Mean Corpuscular Hemoglobin 27.2 pg (25-34); Mean Corpuscular Volume 82.4 fL (80-100); Mean Platelet Volume 10.4 fL (7.4-10.4); Monocytes # (auto) 0.33 K/uL (0.11-0.59); Monocytes % (auto) 3.7 %; Neutrophils # (auto) 4.25 K/uL (1.4-6.5); Neutrophils % (auto) 48.2 %; Platelet Count 184 K/uL (130-400); RDW Coefficient of Variation 13.8 % (11.5-14.5); RDW Standard Deviation 41.8 fL (36.4-46.3); Red Blood Count 4.26 M/uL (4.2-5.4); White Blood Count 8.83 K/uL (4.8-10.8)
[2020-01-16 01:55] LABS: BUN Creatinine Ratio 24.2 (10-20); Blood Urea Nitrogen 24 mg/dl (7-18); Calcium 8.6 mg/dl (8.5-10.1); Carbon Dioxide 24 mmol/L (21-32); Chloride 107 mmol/L (98-107); Creatinine Clr Calc Pharmacy 55.8 ml/min; Est GFR (African American) 64.6; Est GFR (Non-African American) 55.7; Glucose 186 mg/dl (70-99); Potassium 3.8 mmol/L (3.5-5.1); Sodium 137 mmol/L (136-145); Troponin I < 0.015 ng/ml (0-0.045)
[2020-01-16] MEDS: TRAMADOL HCL 50 MG TABLET PO PRN ×3 (05:14→19:31)
[2020-01-16] MEDS: HydrALAZINE HCL 20 MG/ML VIAL IV PRN ×3 (05:15→19:31)
[2020-01-16] MEDS: HEPARIN SOD 5,000 UNIT/0.5 ML VIAL SQ SCH ×3 (05:15→20:44)
--- NOTE | 2020-01-16 07:28 | CT Scan Report ---
CT head/brain wo con CLINICAL HISTORY: Headache COMPARISON STUDY: 1. 911 TECHNIQUE: Axial CT of the brain is performed from the vertex to the skull base. IV contrast was not administered for this examination. A dose lowering technique was utilized adhering to the principles of ALARA. CT DOSE: 537.48 mGy.cm FINDINGS: No intra or extra-axial mass lesions are visualized. There is no CT evidence of acute cortical infarc tion. There is no evidence of midline shift. There is no acute hemorrhage. No calvarial fractures ar e visualized. There are patchy white matter hypodensities likely on a small vessel basis. There is no evidence of pathologic ventricular dilatation. There is no evidence of acute sinusitis. Postsurgical changes are visualized. There is a partially vi sualized right maxillary sinus polyp/retention cyst. IMPRESSION: No acute intracranial findings ACT 112: Negative or not required by law. Electronically signed by: Garret Gallagher M.D. 01/16/2020 7:27 AM
[2020-01-16] MEDS: FLUTICASONE/VILANTEROL 200/25MCG 14 PUFFS/INHALER INH SCH (08:02)
[2020-01-16] MEDS: CEROVITE ADV FORMULA TAB PO SCH (08:03)
[2020-01-16] MEDS: OMEGA-3 (PURIFIED FISH OIL) 1 GM CAP PO SCH (08:03)
[2020-01-16] MEDS: GABAPENTIN 100 MG CAP PO SCH ×3 (08:03→20:49)
[2020-01-16] MEDS: ASPIRIN 81 MG ECTAB PO SCH (08:03)
[2020-01-16] MEDS: SERTRALINE HCL 100 MG TABLET PO SCH (08:04)
[2020-01-16] MEDS: INSULIN GLARGINE SOLOSTAR 100 UNITS/ML 3 ML PEN SC SCH ×2 (08:04→20:45)
[2020-01-16] MEDS: INSULIN ASPART 100 UNITS/ML 3 ML PEN SC SCH ×4 (08:05→20:45)
--- NOTE | 2020-01-16 08:38 | Electrocardiogram Report ---
Test Reason : Blood Pressure : / mmHG Vent. Rate : 048 BPM Atrial Rate : 097 BPM P-R Int : 212 ms QRS Dur : 098 ms QT Int : 482 ms P-R-T Axes : 073 -04 040 degrees QTc Int : 430 ms Sinus bradycardia Poor R wave progression, consider anterior RI vs. lead placement vs. LVH Abnormal ECG When compared with ECG of 15-JAN-2020 15:21, Loss of precordial R waves (may be lead placement related) Otherwise no significant change Confirmed by Jd Tompkins ([id number]) on 01/16/2020 8:37:45 AM Referred By: Narinder Gooden Confirmed By:Jd Tompkins
--- NOTE | 2020-01-16 09:03 | Electrocardiogram Report ---
Test Reason : Blood Pressure : / mmHG Vent. Rate : 062 BPM Atrial Rate : 062 BPM P-R Int : 212 ms QRS Dur : 094 ms QT Int : 446 ms P-R-T Axes : 075 007 077 degrees QTc Int : 452 ms Sinus rhythm with 1st degree A-V block Poor R wave progression, consider anterior OH vs. lead placement vs. LVH Abnormal ECG When compared with ECG of 15-JAN-2020 19:21, No significant change Confirmed by Jd Tompkins ([id number]) on 01/16/2020 9:02:51 AM Referred By: Narinder Gooden Confirmed By:Jd Tompkins
--- NOTE | 2020-01-16 09:13 | Cardiology Consultation ---
Date of Consultation January 16, 2020 Assessment & Plan (1) Symptomatic bradycardia: (2) HTN (hypertension): (3) BPV (benign positional vertigo): Mrs. Herlinda Sanchez is suffering from symptomatic bradycardia despite reversal of her beta-blockade. The pathophysiology and treatment options for which were discussed with her at great lengths today. I recommend insertion of dual-chamber permanent pacemaker placement and she is in agreement. I will asked Dr. Nunez to evaluate her and perform pacemaker placement. I will also ask physical therapy to evaluate her for benign positional vertigo. Her blood pressure is significantly increased since holding her carvedilol, nifedipine and clonidine. We will resume nifedipine We will restart other antihypertensives once pacemaker is placed. History of Present Illness Reason for Consultation: symptomatic bradycardia Requesting Physician: Dr. Jaimes Attending Physician: Min Jaimes MD History of Present Illness Mrs. Reno is a very pleasant 74-year-old woman who presented to [facility] from her PCPs office after presenting with complaints of severe dizziness. She was found to be significantly bradycardic with rates in the 30s. Upon arrival to the emergency department she remained bradycardic and I recommended glucagon to reverse her beta-kenney. Her rates improved into the 50s but she still remains significantly dizzy particularly with ambulation. She also states that she becomes dizzy if she turns her head and feels that the room spins around her. Her chronic chest pain is unchanged and she is having significant back pain now as well. Past medical history as per most recent outpatient cardiology visit: 1. Atypical chest pain -nonischemic nuclear stress test November 2019 2. Chronic dyspnea on exertion 3. Obesity with suspected obstructive sleep apnea 4. Hypertension - controlled with use of p.r.n. Clonidine for SBP greater than 140 mmHg 5. Dyslipidemia goal LDL less than 100 mg/dL - LDL controlled with hypertriglyceridemia 6. DM-2 : Uncontrolled per most recent hemoglobin A1c, 8.1% Allergies Allergy/AdvReac Type Severity Reaction Status Date / Time No Known Allergies Allergy Mild NONE Unverified 01/15/20 18:01 Home Medications Home Medications Medication Instructions Recorded Confirmed Type albuterol sulfate 2 puff INHALATION QID PRN 01/15/20 01/15/20 History aspirin 81 mg PO DAILY 01/15/20 01/15/20 History benzonatate 100 mg PO BID PRN 01/15/20 01/15/20 History carvedilol 12.5 mg PO BID 01/15/20 01/15/20 History cetirizine 10 mg PO DAILY PRN 01/15/20 01/15/20 History clonidine HCl 0.1 mg PO DAILY PRN 01/15/20 01/15/20 History fluticasone propion-salmeterol 1 inh INHALATION BID 01/15/20 01/15/20 History [Advair Diskus] gabapentin 100 mg PO TID 01/15/20 01/15/20 History insulin glargine 32 unit SUBCUT BID 01/15/20 01/15/20 History meclizine 25 mg PO TID PRN 01/15/20 01/15/20 History rfvnogieiwkg-fvbh-xjzxv acid 1 tab PO DAILY 01/15/20 01/15/20 History [Centrum] nifedipine 90 mg PO BID 01/15/20 01/15/20 History omega 0-xkd-krd-fish oil [Fish Oil] 1 cap PO DAILY 01/15/20 01/15/20 History omeprazole 20 mg PO BID PRN 01/15/20 01/15/20 History pravastatin 80 mg PO QPM 01/15/20 01/15/20 History sertraline 100 mg PO QAM 01/15/20 01/15/20 History Patient History Medical History Asthma CKD (chronic kidney disease) stage 3, GFR 30-59 ml/min Depression Diabetes mellitus Diabetic neuropathy Diabetic retinopathy GERD (gastroesophageal reflux disease) History of PSVT (paroxysmal supraventricular tachycardia) HLD (hyperlipidemia) HTN (hypertension) Osteoporosis Surgical History History of History of cholecystectomy History of colonoscopy History of esophagogastroduodenoscopy (EGD) History of sinus surgery Family History Father Coronary heart disease, Onset Age: 62 Mother Stroke, Onset Age: 77 Social History Smoking Status: Never smoker Hx Alcohol Use: No Hx Substance Use: No Preferred Language: [place] Citizen Communication Ability: Effective Beliefs That Will Affect Care: None marital status: / Current Living Situation: Alone Other Information That Helps Us Care for You: No Feels Safe at Home: Yes Safety Concerns: Feels Safe At This Time Review of Systems Review of Systems: All systems reviewed & are unremarkable except as noted in HPI & below Physical Exam Physical Exam: General: Awake, alert and oriented x 3. No acute distress. HEENT: Normocephalic, atraumatic. Pupils equal, round and reactive to light and accommodation. Extraocular muscles are intact. Anicteric sclera. Moist mucous membranes. Neck: No JVD. No bruit. Cardiovascular: Regular. Positive S-4. Normal S-1 and S-2. No S-3. No murmurs or rubs. Pulmonary: Clear to auscultation B/L. No rales, rhonchi or wheezing Abdomen: Bowel sounds x 4, soft. No rebound, guarding or tenderness. No organomegaly. Extremities: No clubbing, cyanosis or edema. +2 pedal pulses bilaterally. Skin: Warm and dry. Results & Data ([facility]) Vital Signs (Past 12 Hours) Vital Signs Temp Pulse Pulse Resp BP Pulse Ox 01/16/20 07:55 36.4 C L 60 20 150/75 H 97 01/16/20 05:14 67 186/84 H 01/16/20 04:00 36.5 C 59 L 20 168/80 H 96 01/16/20 00:11 52 L 01/15/20 23:05 36.5 C 53 L 18 116/73 98 Laboratory Results Laboratory Results - last 24 hr 01/15/20 01/15/20 01/15/20 15:32 15:32 20:08 WBC 8.61 RBC 4.66 Hgb 12.8 Hct 38.8 MCV 83.3 MCH 27.5 MCHC 33.0 RDW Std Deviation 41.3 RDW Coeff of Keyur 13.8 Plt Count 211 MPV 10.7 H Immature Gran % (Auto) 0.1 Neut % (Auto) 46.8 Lymph % (Auto) 46.1 [place] % (Auto) 5.3 Eos % (Auto) 1.6 Baso % (Auto) 0.1 Neut # (Auto) 4.02 Lymph # (Auto) 3.97 H [place] # (Auto) 0.46 Eos # (Auto) 0.14 Baso # (Auto) 0.01 Immature Gran # (Auto) 0.01 Sodium 135 L Potassium 4.4 Chloride 104 Carbon Dioxide 24 Anion Gap 7.0 BUN 29 H Creatinine 1.38 H Est Cr Clr Drug Dosing 40.1 Est GFR ( Amer) 43.2 Est GFR (Non-Af Amer) 37.3 BUN/Creatinine Ratio 21.0 H Glucose 203 H POC Glucose Calcium 9.3 Magnesium 2.2 Total Bilirubin 0.4 AST 12 L ALT 21 Alkaline Phosphatase 105 Troponin I < 0.015 < 0.015 Total Protein 8.5 H Albumin 3.8 Globulin 4.6 H Albumin/Globulin Ratio 0.8 L TSH 2.820 Urine Color Urine Appearance Urine pH Ur Specific [place] Urine Protein Urine Glucose (UA) Urine Ketones Urine Blood Urine Nitrite Urine Bilirubin Urine Urobilinogen Ur Leukocyte Esterase Urine WBC (Auto) Urine RBC (Auto) U Hyaline Cast (Auto) U Epithel Cells (Auto) Urine Bacteria (Auto) Lyme Disease IgG Ab Lyme Disease IgM Ab Hepatitis C Ab Screen 01/15/20 01/15/20 01/15/20 20:08 20:08 20:26 WBC RBC Hgb Hct MCV MCH MCHC RDW Std Deviation RDW Coeff of Keyur Plt Count MPV Immature Gran % (Auto) Neut % (Auto) Lymph % (Auto) [place] % (Auto) Eos % (Auto) Baso % (Auto) Neut # (Auto) Lymph # (Auto) [place] # (Auto) Eos # (Auto) Baso # (Auto) Immature Gran # (Auto) Sodium Potassium Chloride Carbon Dioxide Anion Gap BUN Creatinine Est Cr Clr Drug Dosing Est GFR ( Amer) Est GFR (Non-Af Amer) BUN/Creatinine Ratio Glucose POC Glucose Calcium Magnesium Total Bilirubin AST ALT Alkaline Phosphatase Troponin I Total Protein Albumin Globulin Albumin/Globulin Ratio TSH Urine Color Yellow Urine Appearance Clear Urine pH 5.5 Ur Specific [place] 1.016 Urine Protein Negative Urine Glucose (UA) Trace H Urine Ketones Negative Urine Blood Negative Urine Nitrite Negative Urine Bilirubin Negative Urine Urobilinogen Negative Ur Leukocyte Esterase 1+ H Urine WBC (Auto) 1-5 Urine RBC (Auto) 0-4 U Hyaline Cast (Auto) 1-5 U Epithel Cells (Auto) >30 H Urine Bacteria (Auto) 1+ H Lyme Disease IgG Ab Negative Lyme Disease IgM Ab Negative Hepatitis C Ab Screen Neg 01/15/20 01/16/20 01/16/20 20:43 01:23 01:23 WBC 8.83 RBC 4.26 Hgb 11.6 L Hct 35.1 L MCV 82.4 MCH 27.2 MCHC 33.0 RDW Std Deviation 41.8 RDW Coeff of Keyur 13.8 Plt Count 184 MPV 10.4 Immature Gran % (Auto) 0.1 Neut % (Auto) 48.2 Lymph % (Auto) 46.1 [place] % (Auto) 3.7 Eos % (Auto) 1.8 Baso % (Auto) 0.1 Neut # (Auto) 4.25 Lymph # (Auto) 4.07 H [place] # (Auto) 0.33 Eos # (Auto) 0.16 Baso # (Auto) 0.01 Immature Gran # (Auto) 0.01 Sodium 137 Potassium 3.8 Chloride 107 Carbon Dioxide 24 Anion Gap 6.0 BUN 24 H Creatinine 0.99 D Est Cr Clr Drug Dosing 55.8 Est GFR ( Amer) 64.6 Est GFR (Non-Af Amer) 55.7 BUN/Creatinine Ratio 24.2 H Glucose 186 H POC Glucose 153 H Calcium 8.6 Magnesium Total Bilirubin AST ALT Alkaline Phosphatase Troponin I < 0.015 Total Protein Albumin Globulin Albumin/Globulin Ratio TSH Urine Color Urine Appearance Urine pH Ur Specific [place] Urine Protein Urine Glucose (UA) Urine Ketones Urine Blood Urine Nitrite Urine Bilirubin Urine Urobilinogen Ur Leukocyte Esterase Urine WBC (Auto) Urine RBC (Auto) U Hyaline Cast (Auto) U Epithel Cells (Auto) Urine Bacteria (Auto) Lyme Disease IgG Ab Lyme Disease IgM Ab Hepatitis C Ab Screen 01/16/20 01/16/20 07:54 11:30 WBC RBC Hgb Hct MCV MCH MCHC RDW Std Deviation RDW Coeff of Keyur Plt Count MPV Immature Gran % (Auto) Neut % (Auto) Lymph % (Auto) [place] % (Auto) Eos % (Auto) Baso % (Auto) Neut # (Auto) Lymph # (Auto) [place] # (Auto) Eos # (Auto) Baso # (Auto) Immature Gran # (Auto) Sodium Potassium Chloride Carbon Dioxide Anion Gap BUN Creatinine Est Cr Clr Drug Dosing Est GFR ( Amer) Est GFR (Non-Af Amer) BUN/Creatinine Ratio Glucose POC Glucose 182 H 165 H Calcium Magnesium Total Bilirubin AST ALT Alkaline Phosphatase Troponin I Total Protein Albumin Globulin Albumin/Globulin Ratio TSH Urine Color Urine Appearance Urine pH Ur Specific [place] Urine Protein Urine Glucose (UA) Urine Ketones Urine Blood Urine Nitrite Urine Bilirubin Urine Urobilinogen Ur Leukocyte Esterase Urine WBC (Auto) Urine RBC (Auto) U Hyaline Cast (Auto) U Epithel Cells (Auto) Urine Bacteria (Auto) Lyme Disease IgG Ab Lyme Disease IgM Ab Hepatitis C Ab Screen Medications Administered Current Inpatient Medications Acetaminophen (Acetaminophen 325 Mg Tab) 650 mg PO Q4H PRN PRN Reason: Pain or Fever Stop: 02/14/20 20:10 Al Hydrox/Mg Hydrox/Simethicone (Aluminum/Magnesium Susp 30 Ml Udc) 15 ml PO Q4H PRN PRN Reason: Dyspepsia Stop: 02/14/20 20:10 Albuterol (Albuterol Hfa 8 Gm Inhaler) 2 puffs INH QID PRN PRN Reason: Shortness Of Breath Stop: 02/14/20 20:10 Aspirin (Aspirin 81 Mg Ectab) 81 mg PO DAILY PATRICK Stop: 02/15/20 08:59 Last Admin: 01/16/20 08:03 Dose: 81 mg Documented by: Cetirizine HCl (Cetirizine Hcl 10 Mg Tablet) 10 mg PO DAILY PRN PRN Reason: Allergic Symptoms Stop: 02/14/20 20:10 Dextrose (Dextrose 50% 50 Ml Syringe) 25 - 50 ml IV UD PRN; Protocol PRN Reason: Hypoglycemia Protocol Stop: 02/14/20 20:10 Fish Oil ([place]-3 (Purified Fish Oil) 1 Gm Cap) 1 gm PO DAILY PATRICK Stop: 02/15/20 08:59 Last Admin: 01/16/20 08:03 Dose: 1 gm Documented by: Fluticasone/Vilanterol (Fluticasone/Vilanterol 200/25mcg 14 Puffs/Inhaler) 1 puffs INH DAILY PATRICK; Protocol Stop: 02/15/20 08:59 Last Admin: 01/16/20 08:02 Dose: 1 puffs Documented by: Gabapentin (Gabapentin 100 Mg Cap) 100 mg PO TID PATRICK Stop: 02/14/20 20:59 Last Admin: 01/16/20 13:35 Dose: 100 mg Documented by: Glucagon (Glucagon For Inj 1 Mg Vial) 1 mg SQ UD PRN; Protocol PRN Reason: Hypoglycemia Protocol Stop: 02/14/20 20:10 Glucose (Glucose 10 Tabs/Tube) 4 - 8 tabs PO UD PRN; Protocol PRN Reason: Hypoglycemia Protocol Stop: 02/14/20 20:10 Glucose (Glucose 40% Gel 15 Gm Tube) 15 - 30 gm PO UD PRN; Protocol PRN Reason: Hypoglycemia Protocol Stop: 02/14/20 20:10 Heparin Sodium (Porcine) (Heparin Sod 5,000 Unit/0.5 Ml Vial) 5,000 units SQ Q8 PATRICK Stop: 02/14/20 21:59 Last Admin: 01/16/20 12:55 Dose: Not Given Documented by: Hydralazine HCl (Hydralazine Hcl 20 Mg/Ml Vial) 5 mg IV Q6H PRN PRN Reason: hypertension Stop: 02/14/20 20:10 Last Admin: 01/16/20 12:50 Dose: 5 mg Documented by: Insulin Aspart (Insulin Aspart 100 Units/Ml 3 Ml Pen) 0 units SC ACHS PATRICK Stop: 02/14/20 20:59 Last Admin: 01/16/20 12:04 Dose: 1 units Documented by: Insulin Glargine (Insulin Glargine Solostar 100 Units/Ml 3 Ml Pen) 0 - 25 units SC BID PATRICK Stop: 02/14/20 20:59 Last Admin: 01/16/20 08:04 Dose: 25 units Documented by: Magnesium Hydroxide (Magnesium Hydroxide Susp 30 Ml Udc) 30 ml PO Q12H PRN PRN Reason: Constipation Stop: 02/14/20 20:10 Meclizine HCl (Meclizine Hcl 25 Mg Tab) 25 mg PO TID PRN PRN Reason: Dizziness Stop: 02/14/20 20:17 Miscellaneous (Carbohydrates For Hypoglycemia ) 15 - 30 gm PO UD PRN PRN Reason: Hypoglycemia Protocol Stop: 02/14/20 20:10 Multivitamins/Minerals (Cerovite Adv Formula Tab) 1 tab PO DAILY [facility] Stop: 02/15/20 08:59 Last Admin: 01/16/20 08:03 Dose: 1 tab Documented by: Ondansetron HCl (Ondansetron Inj 2 Mg/Ml 2 Ml Vial) 4 mg IV Q6H PRN PRN Reason: Nausea Stop: 02/14/20 20:10 Pantoprazole Sodium (Pantoprazole 40 Mg Tab) 40 mg PO BID PRN; Protocol PRN Reason: Gi Upset Stop: 02/14/20 20:15 Polyethylene Glycol (Polyethylene (Miralax) 17 Gm Pack) 17 gm PO DAILY PRN PRN Reason: Constipation Stop: 02/14/20 20:10 Pravastatin Sodium (Pravastatin Sod 40 Mg Tab) 80 mg PO QPM PATRICK Stop: 02/14/20 20:59 Last Admin: 01/15/20 20:46 Dose: 80 mg Documented by: Sertraline HCl (Sertraline Hcl 100 Mg Tablet) 100 mg PO QAM [facility] Stop: 02/15/20 08:59 Last Admin: 01/16/20 08:04 Dose: 100 mg Documented by: Tramadol HCl (Tramadol Hcl 50 Mg Tablet) 25 - 50 mg PO Q4H PRN PRN Reason: Pain Stop: 02/14/20 23:13 Last Admin: 01/16/20 12:07 Dose: 50 mg Documented by:
[2020-01-16] MEDS ORDERED: LIDOCAINE HCL 1% 20 ML VIAL ONE (15:03)
[2020-01-16] MEDS ORDERED: BUPIVACAINE 0.25% 30 ML VIAL ONE (15:04)
[2020-01-16] MEDS ORDERED: CEFAZOLIN 250 MG/ML 1 GM VIAL ONE (15:04)
[2020-01-16] MEDS ORDERED: BACITRACIN INJ 50,000 UNIT VIAL ONE (15:04)
[2020-01-16] MEDS ORDERED: fentaNYL citrate 100 MCG/2 ML VIAL ONE (15:04)
[2020-01-16] MEDS ORDERED: MIDAZOLAM HCL 5 MG/ML 1 ML VIAL ONE (15:04)
--- NOTE | 2020-01-16 15:10 | Pre Anesthesia Assessment ---
Date of Service January 16, 2020 Pre Sedation Assessment Vital Signs Temp Pulse Pulse Resp BP BP Pulse Ox 01/16/20 14:55 60 18 194/89 H 97 01/16/20 11:19 36.4 C L 53 L 20 182/78 H 95 01/16/20 07:55 36.4 C L 60 20 150/75 H 97 01/16/20 05:14 67 186/84 H 01/16/20 04:00 36.5 C 59 L 20 168/80 H 96 01/16/20 00:11 52 L 01/15/20 23:05 36.5 C 53 L 18 116/73 98 01/15/20 19:55 61 01/15/20 19:47 36.7 C 59 L 18 190/101 H 98 01/15/20 18:31 46 L 18 170/94 H 98 01/15/20 18:00 62 17 192/134 H 99 01/15/20 17:30 53 L 18 175/85 H 98 01/15/20 17:01 54 L 15 167/80 H 95 01/15/20 17:00 54 L 16 95 01/15/20 16:56 64 18 147/94 H 98 01/15/20 16:25 64 18 152/80 H 98 01/15/20 15:39 99 01/15/20 15:36 34 L 18 149/79 H 99 01/15/20 15:33 99 Cardiovascular + regular rate Respiratory + respiratory effort normal Pre-Sedation Airway Assessment Smoking Status: Never smoker Hx Sleep Apnea: No Hx Difficult Intubation: No Short, Thick Neck: No Thyromental Distance: > or= 3.5 Finger Breadths Oral Cavity: + WNL Mallampati Class: III ASA: ASA3 NPO Status Date of Last Intake of Fluids: 01/16/20 Time of Last Intake of Fluids: 12:00 Date of Last Intake of Solid Food: 01/15/20 Time of Last Intake of Solid Foods: 18:00 Procedure Planning Contraindications for Sedation: none Current Medications Reviewed: Yes Notes The planned sedation has been discussed with the patient. Informed Consent was obtained. I have identified the patient, determined the appropriateness of sedation and have assessed the patient immediately prior to the procedure. All medicine(s) and interventions are by my order.
--- NOTE | 2020-01-16 16:38 | Electrophysiology Report ---
Date of Service January 16, 2020 Electrophysiology Procedure Electrophysiology Procedure Report Procedure performed: Implantation of dual-chamber permanent pacemaker Staff nurse practical: Dannie Ochoa MD Indication: The patient is a 74-year-old woman with a history of SVT who is also on beta-blockers. She presented to the hospital with symptoms of dizziness and presyncope. She is noted to have severe sinus bradycardia. Based on her symptoms and nonreversible S-A node dysfunction, she was felt to be a good candidate for permanent pacemaker. A dual-chamber device was selected she is currently in sinus rhythm and wished to maintain AV synchrony. Procedure in detail: The patient was informed of the risks benefits and alternatives to the intended procedure and she wished to proceed. She was taken to the electrophysiology suite in a fasting state. A preoperative antibiotic had been administered. The patient was monitored electrocardiographically throughout today's procedure and conscious sedation was administered per protocol. The left upper pectoral area is prepped and draped in usual sterile fashion. This area was anesthetized using subcutaneous administration of a xylocaine solution. An incision was made at this site and carried down to the prepectoralis fascia using sharp dissection. Electrocautery was also employed for dissection as well as for hemostasis. A device pocket was fashioned tissues above the pectoralis muscle. Subsequent to this maneuver the left axillary vein was accessed using modified Seldinger technique. Sheaths were placed over guidewires at this site and used to facilitate passage of the pacing leads to the respective chambers under fluoroscopic guidance. This included right atrial and right ventricular leads. Adequate sensing and threshold parameters were obtained prior to Active fixation of the leads to the endocardial surface. The proximal portion leads were then sutured the prepectoral fascia using nonabsorbable suture. The device pocket was irrigated with antibiotic solution. The leads were then attached to the device. The device and leads were then placed in the pocket and pocket was closed in 3 layers of absorbable suture. Steri-Strips and sterile dressing were applied. The device was tested noninvasively prior to conclusion the procedure. The patient tolerated procedure well there no immediate complications. Equipment used: New pulse generator: Pressure Dispatcher [employer]. Model number: [id number] serial number [id number] Right atrial lead: Pressure Dispatcher [employer]. Model number: 5076 serial number [id number] Right ventricular lead: Pressure Dispatcher [employer]. Model number: 5076 serial number [id number] Measured data: Right atrial lead: P waves measured 3 mV. Pacing threshold 0.5 V at 0.4 ms with a pacing impedance of 494 ohms Right ventricular lead: R waves measured 16.3 mV. Pacing threshold 0.75 V at 0.4 ms with a pacing impedance of 988 ohms Impression: Successful implantation of chamber permanent pacemaker [facility] Electrophysiology codes Pacing Procedure 1: Pacin Insert/Replace Pacer A & V PG Moderate Sedation Codes Moderate Sedation Codes Procedure 1: Sedation/Anesthesia: 83942 Mod Sedation by the same physician;Init15 Min Child Age 5 & Up Procedure 2: Sedation/Anesthesia: 29336 Mod Sedation by the same physician; Ea [id number] Minutes
--- NOTE | 2020-01-16 16:41 | Post Anesthesia Assessment ---
Date of Service January 16, 2020 Post Sedation Assessment Vital Signs Temp Pulse Pulse Resp BP BP Pulse Ox 01/16/20 14:55 60 18 194/89 H 97 01/16/20 11:19 36.4 C L 53 L 20 182/78 H 95 01/16/20 07:55 36.4 C L 60 20 150/75 H 97 01/16/20 05:14 67 186/84 H 01/16/20 04:00 36.5 C 59 L 20 168/80 H 96 01/16/20 00:11 52 L 01/15/20 23:05 36.5 C 53 L 18 116/73 98 01/15/20 19:55 61 01/15/20 19:47 36.7 C 59 L 18 190/101 H 98 01/15/20 18:31 46 L 18 170/94 H 98 01/15/20 18:00 62 17 192/134 H 99 01/15/20 17:30 53 L 18 175/85 H 98 01/15/20 17:01 54 L 15 167/80 H 95 01/15/20 17:00 54 L 16 95 01/15/20 16:56 64 18 147/94 H 98 Recovery Score Activity: Moves 4 extremities Respiration: Deep Breath/Cough Circulation: +/-20-49% PreAnes Value Consciousness: Fully Awake Oxygen Saturation: > 92% On Room Air Discharge Sedation Level of Care: Fast Track Phase II Post Sedation Plan On clinical assessment, the patient appears to have tolerated the sedation without complications. Patient is recovering as anticipated. Patient will continue to be monitored by nursing and may be discharged when sedation discharge criteria are met per below protocol. Upon Completions of procedure up to 15 minutes continue every 5 minute vital signs and the P.A.R. score; then discharge to a Phase I or Fast Track to Phase II per the following guidelines: * Discharge Patient to appropriate Phase II area if PAR is 8 or greater or return to pre- procedure baseline. The post - procedure orders will be as directed. * If PAR score is less than 8 or not return to pre-procedure baseline then patient will follow Phase I monitoring till PAR is reached for Phase II. The Phase I may be done in procedure room or may call to secure a Phase I area. * If naloxone or flumazenil are used for reversal, hold in Phase I for continued monitoring from when last reversal dose was given for a minimum of 60 minutes or longer pending the nurse and/or physician discretion of patient condition before discharge to Phase II. Please call the Sedation Physician to re-evaluate and complete post-note for discharge to Phase II area. Do NOT discharge from procedure sedation or Phase 1 until post- sedation evaluation note is complete by procedure /sedation MD Sedation Discharge Instructions to be given to the patient at discharge to home.
--- NOTE | 2020-01-16 17:36 | Hospitalist Progress Note ---
Date of Service January 16, 2020 Assessment & Plan (1) Symptomatic bradycardia: Patient is a 74 y- female with H/O DM II, HTN, HLD, CKD stage III, history of PSVT, asthma, GERD, diabetic retinopathy and polyneuropathy, osteoporosis and depression who presents to ED at the referral of PCP secondary to bradycardia. Symptomatic bradycardia H/O PSVT S/P IV glucagon for reversal of beta-blockade TSH: normal [place] Screen: Negative --ECHO: Normal left ventricular chamber size with mild concentric LVH. EF 60 to 65%. No segmental left ventricular wall motion abnormalities. Grade 2 diastolic dysfunction. Moderate aortic valve sclerosis without stenosis. Mild tricuspid regurgitation. Pulmonary hypertension with PA systolic pressure 70 mmHg. Interatrial septum bows towards right atrium consistent with elevated left atrial pressure. Aortic valve sclerosis moderate, without significant aortic valvular stenosis. --S/P implantation of permanent pacemaker POD #0 --Appreciate Cardiology Help --Continue current medications (2) Chest pain: Had Nuclear stress test 12/15 Cardiac enzymes negative Echo--normal segmental wall motion abnormalities We will need to resume medications after pacemaker placement. Continue aspirin, statin (3) Diabetes mellitus: Hb A1C 10.0 on 12/27/19 Lantus/novolog per protocol Monitor BGs (4) HTN (hypertension): Home blood pressure medications currently held We will resume medications as able Monitor (5) HLD (hyperlipidemia): continue statin (6) History of PSVT (paroxysmal supraventricular tachycardia): Was on Procardia and Coreg Will resume medications as recommended by cardiology (7) CKD (chronic kidney disease) stage 3, GFR 30-59 ml/min: Baseline Cr 1.3-1.5 monitor renal function (8) GERD (gastroesophageal reflux disease): continue PPI (9) Diabetic neuropathy: continue gabapentin (10) Asthma: No signs of Exacerbation Continue home inhalers (11) Depression: continue zoloft (12) DVT prophylaxis: SQ heparin Disposition: PT/OT prior to discharge Admission and Anticipated Discharge Date Admission Date: January 15, 2020 Subjective Patient is seen and examined at bedside this morning Complains of dizziness slightly improved from admission Reports retrosternal chest pressure Chronic dyspnea on exertion Offers no other complaints Plan for pacemaker placement today Review of Systems Review of Systems: All systems reviewed & are unremarkable except as noted in HPI & below Physical Exam Physical Exam: Physical Exam: Vitals signs as noted above General Appearance:Obese, no apparent distress Head: normocephalic, Atraumatic Eyes: normal inspection, EOMI Neck: supple, Trachea midline Respiratory/Chest: Normal breath sounds, CTA, No accessory muscle use Cardiovascular: S1, S2, No murmur Abdomen/GI:Soft, Non tender, Bowel sounds present Extremities/Musculoskelatal:normal inspection, Trace edema Neurologic/Psych:AAOX3, grossly no focal neurological deficits Skin: normal color, warm Results & Data Results & Data ([facility]) Vital Signs (Past 12 Hours) Vital Signs Temp Pulse Resp BP Pulse Ox 01/16/20 17:08 60 16 189/94 H 97 01/16/20 17:00 36.4 C L 60 16 185/94 H 97 01/16/20 16:57 60 18 158/94 H 94 01/16/20 16:45 60 18 152/83 H 94 01/16/20 14:55 60 18 194/89 H 97 01/16/20 11:19 36.4 C L 53 L 20 182/78 H 95 01/16/20 07:55 36.4 C L 60 20 150/75 H 97 Laboratory Results Short CBC 01/16/20 Range/Units 01:23 WBC 8.83 (4.8-10.8) K/uL Hgb 11.6 L (12.0-16.0) g/dL Hct 35.1 L (37-47) % Plt Count 184 (130-400) K/uL BMP 01/16/20 01:23 Sodium 137 Potassium 3.8 Chloride 107 Carbon Dioxide 24 BUN 24 H Creatinine 0.99 D Glucose 186 H Calcium 8.6 Cardiac Enzymes 01/15/20 01/16/20 Range/Units 20:08 01:23 Troponin I < 0.015 < 0.015 (0-0.045) ng/ml Urine 01/15/20 Range/Units 20:26 Urine Color Yellow Urine Appearance Clear (Clear) Urine pH 5.5 (4.5-7.5) Ur Specific [place] 1.016 (1.000-1.030) Urine Protein Negative (Negative) Urine Glucose (UA) Trace H (Negative)
--- NOTE | 2020-01-16 20:40 | Communication Note ---
Date of Service: January 16, 2020 Made aware by RN of uncontrolled blood pressure. SBP 150-200s since AM. CR currently 60s as per RN Headache unchanged from admission as per RN. AP Hypertensive crisis sp PPM for symptomatic bradycardia Initiate Nifedipine ffd by other antiHTN meds as per AM Cardiology note post PPM.
[2020-01-16] MEDS: PRAVASTATIN SOD 40 MG TAB PO SCH (20:49)
[2020-01-16] MEDS: MoRPHine SULFATE 4 MG/ML 1 ML CARP\\VIAL IV PRN (20:52)
[2020-01-16] MEDS: NIFEdipine EXTENDED REL 30 MG TABCR PO SCH (21:29)
[2020-01-16] MEDS: CEFAZOLIN 2000MG 2,000 MG/15 ML SYR IV SCH (23:17)
[2020-01-17] MEDS: HydrALAZINE HCL 20 MG/ML VIAL IV PRN ×2 (03:38→07:42)
[2020-01-17] MEDS: ONDANSETRON INJ 2 MG/ML 2 ML VIAL IV PRN ×2 (03:38→07:51)
[2020-01-17] MEDS: MoRPHine SULFATE 4 MG/ML 1 ML CARP\\VIAL IV PRN (03:38)
[2020-01-17] MEDS ORDERED: carvediloL 3.125 MG TAB PO SCH (04:30)
[2020-01-17] MEDS: HEPARIN SOD 5,000 UNIT/0.5 ML VIAL SQ SCH ×3 (05:50→20:50)
[2020-01-17 07:16] LABS: BUN Creatinine Ratio 15.7 (10-20); Calcium 9.3 mg/dl (8.5-10.1); Creatinine Clr Calc Pharmacy 43.3 ml/min; Est GFR (African American) 48.3; Est GFR (Non-African American) 41.6; Potassium 4.4 mmol/L (3.5-5.1)
[2020-01-17] MEDS: CEFAZOLIN 2000MG 2,000 MG/15 ML SYR IV SCH ×2 (07:43→16:32)
[2020-01-17] MEDS: MECLIZINE HCL 25 MG TAB PO PRN (08:04)
--- NOTE | 2020-01-17 08:32 | Electrocardiogram Report ---
Test Reason : Blood Pressure : / mmHG Vent. Rate : 069 BPM Atrial Rate : 069 BPM P-R Int : 182 ms QRS Dur : 094 ms QT Int : 414 ms P-R-T Axes : 056 020 099 degrees QTc Int : 443 ms Sinus rhythm with Premature supraventricular complexes Poor R wave progression, consider anterior UT vs. lead placement vs. LVH Nonspecific T wave abnormality Inferior leads Abnormal ECG When compared with ECG of 16-JAN-2020 06:53, Premature supraventricular complexes are now Present OH interval has decreased Nonspecific T wave abnormality now evident in Inferior leads Confirmed by Jd Tompkins ([id number]) on 01/17/2020 8:32:39 AM Referred By: Narinder Gooden Confirmed By:Jd Tompkins
--- NOTE | 2020-01-17 08:53 | Cardiology Progress Note ---
Date of Service January 17, 2020 Assessment & Plan (1) Bradycardia: the patient underwent successful dual-chamber pacemaker placement yesterday. No evident complication. She should refrain from lifting left arm above the shoulder behind the neck for 6 weeks. She should keep the wound dry in the Steri-Strips intact until she can be seen in the clinic next week for wound evaluation. From a purely pacemaker and procedural standpoint she would be safe to be discharged today. Admission and Anticipated Discharge Date Admission Date: January 15, 2020 Subjective This morning the patient complained of some mild nausea and fatigue. She had difficulty sleeping last night. She had a headache and some discomfort at the device implant site. Physical Exam Physical Exam: Evaluation of the device implant site did not reveal any evidence of hematoma, erythema or drainage. Results & Data ([facility]) Vital Signs (Past 12 Hours) Vital Signs Temp Pulse Pulse Resp BP Pulse Ox 01/17/20 07:13 36.7 C 67 18 191/87 H 95 01/17/20 04:37 36.8 C 68 20 168/82 H 94 01/17/20 03:21 36.9 C 66 20 193/74 H 97 01/16/20 23:17 36.8 C 63 16 180/96 H 95 01/16/20 21:27 63 196/83 H Diagnostic Findings Chest x-ray obtained this morning revealed good lead position without evidence of complication or pneumothorax A device interrogation revealed normal sensing threshold parameters on both atrial and ventricular leads
--- NOTE | 2020-01-17 08:53 | XRay Report ---
TWO VIEW CHEST CLINICAL HISTORY: Status post pacemaker implantation. FINDINGS: AP and lateral chest radiographs are compared to study dated 01/15/2020 and correlated with chest CT dated 03/18/2013. The AP views degraded by patient rotation. A 2-lead cardiac pacemaker is n ew from previous and partially obscures the left mid chest. Leads project over the right atrial appen dage and the right ventricle. The heart is mildly enlarged. The pulmonary vasculature is noncongested . There is mild bibasilar atelectasis. No airspace consolidation or large pleural effusion is identif ied. There is no pneumothorax. The skeletal structures are osteopenic. The bony thorax appears intact . Degenerative change is noted throughout the thoracic spine. IMPRESSION: 1. A 2-lead cardiac pacemaker has been placed as above. No pneumothorax is seen post procedure. 2. Cardiomegaly without radiographic evidence of congestive failure. 3. No airspace consolidation or pleural effusion is identified. ACT 112: Negative or not required by law. Electronically signed by: Braydon Galloway M.D. 01/17/2020 8:51 AM
[2020-01-17] MEDS: INSULIN ASPART 100 UNITS/ML 3 ML PEN SC SCH ×4 (09:00→20:52)
[2020-01-17] MEDS: NIFEdipine EXTENDED REL 30 MG TABCR PO SCH ×2 (09:04→20:49)
[2020-01-17] MEDS: OMEGA-3 (PURIFIED FISH OIL) 1 GM CAP PO SCH (09:05)
[2020-01-17] MEDS: GABAPENTIN 100 MG CAP PO SCH ×3 (09:05→20:49)
[2020-01-17] MEDS: SERTRALINE HCL 100 MG TABLET PO SCH (09:05)
[2020-01-17] MEDS: INSULIN GLARGINE SOLOSTAR 100 UNITS/ML 3 ML PEN SC SCH ×2 (09:05→20:48)
[2020-01-17] MEDS: CEROVITE ADV FORMULA TAB PO SCH (09:05)
[2020-01-17] MEDS: ASPIRIN 81 MG ECTAB PO SCH (09:06)
[2020-01-17] MEDS: FLUTICASONE/VILANTEROL 200/25MCG 14 PUFFS/INHALER INH SCH (09:07)
[2020-01-17] MEDS ORDERED: HYDROmorphone INJ 0.5 MG/0.5 ML SYR IV STA (10:20)
[2020-01-17] MEDS: carvediloL 12.5 MG TAB PO SCH ×2 (10:52→20:49)
[2020-01-17] MEDS: LOSARTAN POTASSIUM 50 MG TAB PO SCH (10:52)
[2020-01-17] MEDS: DOCUSATE SODIUM 100 MG CAP PO SCH ×2 (10:52→20:50)
[2020-01-17] MEDS ORDERED: FAMOTIDINE 20 MG in SYRINGE 3 ML IV SCH (11:45)
--- NOTE | 2020-01-17 17:28 | Hospitalist Progress Note ---
Date of Service January 17, 2020 Assessment & Plan (1) Symptomatic bradycardia: Patient is a 74 y- female with H/O DM II, HTN, HLD, CKD stage III, history of PSVT, asthma, GERD, diabetic retinopathy and polyneuropathy, osteoporosis and depression who presents to ED at the referral of PCP secondary to bradycardia. Symptomatic bradycardia H/O PSVT S/P IV glucagon for reversal of beta-blockade TSH: normal [place] Screen: Negative --ECHO: Normal left ventricular chamber size with mild concentric LVH. EF 60 to 65%. No segmental left ventricular wall motion abnormalities. Grade 2 diastolic dysfunction. Moderate aortic valve sclerosis without stenosis. Mild tricuspid regurgitation. Pulmonary hypertension with PA systolic pressure 70 mmHg. Interatrial septum bows towards right atrium consistent with elevated left atrial pressure. Aortic valve sclerosis moderate, without significant aortic valvular stenosis. --S/P implantation of permanent pacemaker POD #1 --Appreciate Cardiology Help --Carvedilol, nifedipine resumed. (2) Chest pain: Had Nuclear stress test 12/15 Cardiac enzymes negative Echo--normal segmental wall motion abnormalities Continue aspirin, statin Likely due to elevated BP Improved today (3) Diabetes mellitus: Hb A1C 10.0 on 12/27/19 Lantus/novolog per protocol Monitor BGs Chronic Dizziness Meclizine PRN Advised to follow up with ENT as outpatient Fall precautions (4) HTN (hypertension): BP improved Continue carvedilol 12.5 mg twice daily, nifedipine 90 mg twice daily Started on losartan 50 mg daily Hydralazine PRN Monitor (5) HLD (hyperlipidemia): continue statin (6) History of PSVT (paroxysmal supraventricular tachycardia): Continue nifedipine, Coreg (7) CKD (chronic kidney disease) stage 3, GFR 30-59 ml/min: Baseline Cr 1.3-1.5 monitor renal function (8) GERD (gastroesophageal reflux disease): continue PPI (9) Diabetic neuropathy: continue gabapentin (10) Asthma: No signs of Exacerbation Continue home inhalers (11) Depression: continue zoloft (12) DVT prophylaxis: SQ heparin Disposition: PT/OT prior to discharge Admission and Anticipated Discharge Date Admission Date: January 15, 2020 Subjective Patient is seen and examined at bedside this morning Complains of dizziness associated with nausea and vomiting this morning Also reports constipation today Chest pain improved Discussed with cardiology today Had pacemaker placement yesterday Offers no other complaints Review of Systems Review of Systems: All systems reviewed & are unremarkable except as noted in HPI & below Physical Exam Physical Exam: Physical Exam: Vitals signs as noted above General Appearance:Obese, no apparent distress Head: normocephalic, Atraumatic Eyes: normal inspection, EOMI Neck: supple, Trachea midline Respiratory/Chest: Normal breath sounds, CTA, No accessory muscle use, +Pacemaker on Left Cardiovascular: S1, S2, No murmur Abdomen/GI:Soft, Non tender, Bowel sounds present Extremities/Musculoskelatal:normal inspection, Trace edema Neurologic/Psych:AAOX3, grossly no focal neurological deficits Skin: normal color, warm Results & Data Results & Data ([facility]) Vital Signs (Past 12 Hours) Vital Signs Temp Pulse Pulse Pulse Resp BP Pulse Ox 01/17/20 16:30 72 01/17/20 15:18 36.7 C 66 18 136/70 95 01/17/20 12:50 65 01/17/20 11:54 36.9 C 70 18 175/97 H 18 L 01/17/20 09:22 164/82 H 01/17/20 07:13 36.7 C 67 18 191/87 H 95 Laboratory Results [facility] 01/17/20 06:12 Sodium 137 Potassium 4.4 D Chloride 104 Carbon Dioxide 24 BUN 20 H Creatinine 1.26 H Glucose 182 H Calcium 9.3
[2020-01-17] MEDS: PRAVASTATIN SOD 40 MG TAB PO SCH (20:49)
[2020-01-18] MEDS: ACETAMINOPHEN 325 MG TAB PO PRN ×2 (00:03→09:09)
[2020-01-18] MEDS: MECLIZINE HCL 25 MG TAB PO PRN (04:29)
[2020-01-18] MEDS: HEPARIN SOD 5,000 UNIT/0.5 ML VIAL SQ SCH ×3 (05:24→20:47)
[2020-01-18 07:25] LABS: BUN Creatinine Ratio 14.5 (10-20); Calcium 9.1 mg/dl (8.5-10.1); Creatinine Clr Calc Pharmacy 23.9 ml/min; Est GFR (African American) 23.7; Est GFR (Non-African American) 20.4; Magnesium 2.1 mg/dl (1.8-2.4); Potassium 3.9 mmol/L (3.5-5.1)
[2020-01-18] MEDS: FLUTICASONE/VILANTEROL 200/25MCG 14 PUFFS/INHALER INH SCH (08:51)
[2020-01-18] MEDS: carvediloL 12.5 MG TAB PO SCH ×2 (08:51→20:43)
[2020-01-18] MEDS: DOCUSATE SODIUM 100 MG CAP PO SCH ×2 (08:51→20:42)
[2020-01-18] MEDS: NIFEdipine EXTENDED REL 30 MG TABCR PO SCH ×2 (08:52→20:45)
[2020-01-18] MEDS: OMEGA-3 (PURIFIED FISH OIL) 1 GM CAP PO SCH (08:52)
[2020-01-18] MEDS: GABAPENTIN 100 MG CAP PO SCH ×3 (08:52→20:44)
[2020-01-18] MEDS: CEROVITE ADV FORMULA TAB PO SCH (08:52)
[2020-01-18] MEDS: INSULIN GLARGINE SOLOSTAR 100 UNITS/ML 3 ML PEN SC SCH ×2 (08:53→21:03)
[2020-01-18] MEDS: SERTRALINE HCL 100 MG TABLET PO SCH (08:54)
[2020-01-18] MEDS: ASPIRIN 81 MG ECTAB PO SCH (08:54)
[2020-01-18] MEDS: LOSARTAN POTASSIUM 50 MG TAB PO SCH (08:54)
[2020-01-18] MEDS: INSULIN ASPART 100 UNITS/ML 3 ML PEN SC SCH ×4 (08:58→20:57)
--- NOTE | 2020-01-18 12:07 | Ultrasound Report ---
ULTRASOUND KIDNEYS AND BLADDER CLINICAL HISTORY: Acute renal insufficiency. COMPARISON STUDY: Abdominal CT dated 04/20/2017. TECHNIQUE: Real-time, grayscale, and color flow sonography of the kidneys and bladder is performed. I mages are reviewed in the transverse and longitudinal planes. FINDINGS: Kidneys: The kidneys are normal in size and echotexture. The right kidney measures 10.0 cm in length and the left kidney measures 11.0 cm in length. There is no hydronephrosis. No shadowing renal calcul i are identified. There is no sonographic evidence of contour deforming renal mass lesion. No perinep hric fluid is identified. Bladder: The bladder is largely decompressed and grossly unremarkable. Ureteral jets were not seen. IMPRESSION: 1. Unremarkable sonographic assessment of the kidneys. 2. The bladder was decompressed and grossly unremarkable. ACT 112: Negative or not required by law. Electronically signed by: Braydon Galolway M.D. 01/18/2020 12:06 PM
[2020-01-18] MEDS: OXYCODONE HCL IR 5 MG TAB (IMMEDIATE RELEASE) PO PRN ×2 (12:40→20:58)
[2020-01-18] MEDS ORDERED: SODIUM CHLORIDE 0.9% 1000ML 1,000 ML IV SCH (13:45)
--- NOTE | 2020-01-18 18:07 | Hospitalist Progress Note ---
Date of Service January 18, 2020 Assessment & Plan (1) Symptomatic bradycardia: Patient is a 74 y- female with H/O DM II, HTN, HLD, CKD stage III, history of PSVT, asthma, GERD, diabetic retinopathy and polyneuropathy, osteoporosis and depression who presents to ED at the referral of PCP secondary to bradycardia. Symptomatic bradycardia H/O PSVT S/P IV glucagon for reversal of beta-blockade TSH: normal [place] Screen: Negative --ECHO: Normal left ventricular chamber size with mild concentric LVH. EF 60 to 65%. No segmental left ventricular wall motion abnormalities. Grade 2 diastolic dysfunction. Moderate aortic valve sclerosis without stenosis. Mild tricuspid regurgitation. Pulmonary hypertension with PA systolic pressure 70 mmHg. Interatrial septum bows towards right atrium consistent with elevated left atrial pressure. Aortic valve sclerosis moderate, without significant aortic valvular stenosis. --S/P implantation of permanent pacemaker POD #2 --Appreciate Cardiology Help --Continue Carvedilol, nifedipine --Needs follow-up with cardiology upon discharge (2) Chest pain: Had Nuclear stress test 12/15 Cardiac enzymes negative Echo--normal segmental wall motion abnormalities Continue aspirin, statin Likely due to elevated BP BP Improved (3) Diabetes mellitus: Hb A1C 10.0 on 12/27/19 Lantus/novolog per protocol Monitor BGs Chronic Dizziness Meclizine PRN Advised to follow up with ENT as outpatient Fall precautions PT requested for Jan (4) HTN (hypertension): BP improved Continue carvedilol 12.5 mg twice daily, nifedipine 90 mg twice daily losartan discontinued due to APRIL Monitor (5) HLD (hyperlipidemia): continue statin (6) History of PSVT (paroxysmal supraventricular tachycardia): Continue nifedipine, Coreg (7) CKD (chronic kidney disease) stage 3, GFR 30-59 ml/min: Acute Kidney Injury on CKD III Baseline Cr 1.3-1.5 Cr:2.27 Renal USD:Unremarkable sonographic assessment of the kidneys. The bladder was decompressed and grossly unremarkable. Losartan discontinued Monitor renal function Avoid Nephrotoxic agents as able Will give gentle IV fluids (8) GERD (gastroesophageal reflux disease): continue PPI (9) Diabetic neuropathy: continue gabapentin (10) Asthma: No signs of Exacerbation Continue home inhalers (11) Depression: continue zoloft (12) DVT prophylaxis: SQ heparin Disposition: PT/OT prior to discharge Admission and Anticipated Discharge Date Admission Date: January 15, 2020 Subjective Patient is seen and examined at bedside this morning Feels a lot better today Nausea, vomiting resolved, Tolerated diet Dizziness much improved Blood pressure improved as well Worsening renal function Denies any significant chest pain Also denies any shortness of breath, abd pain, dysuria Offers no other complaints Review of Systems Review of Systems: All systems reviewed & are unremarkable except as noted in HPI & below Physical Exam Physical Exam: Physical Exam: Vitals signs as noted above General Appearance:Obese, no apparent distress Head: normocephalic, Atraumatic Eyes: normal inspection, EOMI Neck: supple, Trachea midline Respiratory/Chest: Normal breath sounds, CTA, No accessory muscle use, +Pacemaker on Left Cardiovascular: S1, S2, No murmur Abdomen/GI:Soft, Non tender, Bowel sounds present Extremities/Musculoskelatal:normal inspection, Trace edema Neurologic/Psych:AAOX3, grossly no focal neurological deficits Skin: normal color, warm Results & Data Results & Data ([facility]) Vital Signs (Past 12 Hours) Vital Signs Temp Pulse Resp BP BP Pulse Ox 01/18/20 15:13 59 L 18 137/80 97 01/18/20 14:49 98 01/18/20 12:11 36.6 C 62 18 118/60 99 01/18/20 08:18 36.8 C 64 18 110/69 98 Laboratory Results [facility] 01/18/20 05:54 Sodium 136 Potassium 3.9 Chloride 103 Carbon Dioxide 25 BUN 33 H D Creatinine 2.27 H D Glucose 195 H Calcium 9.1
[2020-01-18] MEDS: PRAVASTATIN SOD 40 MG TAB PO SCH (20:46)
[2020-01-18] MEDS: MoRPHine SULFATE 4 MG/ML 1 ML CARP\\VIAL IV PRN (23:35)
[2020-01-18] MEDS: HydrALAZINE HCL 20 MG/ML VIAL IV PRN (23:35)
[2020-01-19] MEDS ORDERED: HYDROmorphone INJ 1 MG/ML SYRINGE IV PRN (00:03)
[2020-01-19] MEDS ORDERED: HYDROmorphone INJ 1 MG/ML SYRINGE ONE (00:13)
[2020-01-19 00:41] LABS: Basophils # (auto) 0.01 K/uL (0-0.2); Basophils % (auto) 0.1 %; Eosinophils # (auto) 0.19 K/uL (0-0.5); Eosinophils % (auto) 1.7 %; Hemoglobin 11.8 g/dL (12.0-16.0); Immature Granulocytes # (auto) 0.02 K/uL (0.00-0.02); Immature Granulocytes % (auto) 0.2 %; Lymphocytes # (auto) 3.49 K/uL (1.2-3.4); Lymphocytes % (auto) 30.9 %; Mean Corpuscular Hemoglobin 27.4 pg (25-34); Mean Corpuscular Hgb Conc 32.8 g/dL (32-36); Mean Corpuscular Volume 83.5 fL (80-100); Mean Platelet Volume 10.4 fL (7.4-10.4); Monocytes # (auto) 0.55 K/uL (0.11-0.59); Monocytes % (auto) 4.9 %; Neutrophils # (auto) 7.04 K/uL (1.4-6.5); Neutrophils % (auto) 62.2 %; Platelet Count 185 K/uL (130-400); RDW Coefficient of Variation 13.5 % (11.5-14.5); RDW Standard Deviation 41.4 fL (36.4-46.3); Red Blood Count 4.31 M/uL (4.2-5.4)
[2020-01-19] MEDS ORDERED: HYDROmorphone INJ 1 MG/ML SYRINGE IV STA ×2 (00:55→01:54)
--- NOTE | 2020-01-19 00:59 | CT Scan Report ---
CT SCAN OF THE ABDOMEN AND PELVIS WITHOUT IV CONTRAST CLINICAL HISTORY: Flank pain. COMPARISON STUDY: Abdominal CT dated 04/20/2017. TECHNIQUE: CT scan of the abdomen and pelvis is performed from the lung bases to the proximal femora. Images are reviewed in the axial, sagittal, and coronal planes. IV contrast was not administered for this examination as per the referring clinician. Note that the examination was performed in suboptim al fashion without oral and IV contrast. A dose lowering technique was utilized adhering to the princ ipljimmy of SHARIFA. CT DOSE: 1407.40 mGy.cm FINDINGS: Lung bases: The heart is normal in size and without pericardial effusion. Pacemaker leads are noted. The lung bases are clear. There is a small hiatal hernia. Liver: The unenhanced liver is normal in size, contour, and attenuation. There is no intrahepatic donnie iary ductal dilatation. Scattered hepatic calcifications are unchanged from 2017. Gallbladder: Surgically absent noting clips in the gallbladder fossa. Spleen: Normal in size and attenuation. Pancreas: The unenhanced pancreas is moderately atrophic and grossly unremarkable. Adrenal glands: Unremarkable. Kidneys: The unenhanced kidneys demonstrate mild cortical atrophy and are without hydronephrosis. The re are no renal calculi identified. There is no evidence of contour deforming renal mass lesion. Abdominal vasculature: The abdominal aorta is normal in course and caliber noting mild to moderate at herosclerotic calcification. Bowel: There is mild colonic diverticulosis without CT evidence of acute diverticulitis. No bowel obs truction is seen. Mild fecal retention is noted throughout the colon. The appendix is well-visualize d and normal. Peritoneum: There is no intraperitoneal free air or abdominal ascites. Foci of induration within the ventral abdominal wall are likely related to subcutaneous injections. Lymphadenopathy: None. Pelvic viscera: The bladder is normal as visualized. There are calcified uterine fibroids. No adnexal lesion is seen. Skeletal structures: The skeletal structures are osteopenic. There is mild lumbosacral spondylosis. S clerotic change is noted in the sacroiliac joints. No lytic or blastic lesions are seen. Soft tissues: Soft tissue contusion is suggested in the left breast. IMPRESSION: 1. There are no acute infectious or inflammatory findings in the abdomen or pelvis. 2. Soft tissue contusion is suggested in the left breast. Clinical correlation will be required. 3. Mild colonic diverticulosis without CT evidence of acute diverticulitis. 4. Fibroid uterus. 5. Additional findings as above. ACT 112: Negative or not required by law. Electronically signed by: Braydon Galloway M.D. 01/19/2020 12:58 AM
[2020-01-19 01:02] LABS: Albumin Level 3.2 gm/dl (3.4-5.0); BUN Creatinine Ratio 26.4 (10-20); Creatinine Clr Calc Pharmacy 39.7 ml/min; Est GFR (African American) 43.6; Est GFR (Non-African American) 37.6; Potassium 4.1 mmol/L (3.5-5.1)
[2020-01-19 01:05] LABS: Albumin Globulin Ratio 0.8 (0.9-2); Bilirubin,Total 0.3 mg/dl (0.2-1); Globulin 4.2 gm/dl (2.5-4.0); Total Protein 7.4 gm/dl (6.4-8.2)
[2020-01-19 01:16] LABS: Appearance Urine Clear (Clear); Bacteria Urine Automated Negative (Negative); Bilirubin Urine Negative (Negative); Blood Urine Negative (Negative); Color Urine Yellow; Epithelial Cell Urine Auto >30 /lpf (0-5); Glucose Urine UA Negative (Negative); Ketones Urine Negative (Negative); Leukocyte Esterase Urine Trace (Negative); Nitrite Urine Negative (Negative); Protein Urine Negative (Negative); RBC Urine Automated 0-4 /hpf (0-4); Specific Gravity Urine 1.018 (1.000-1.030); Urobilinogen Urine Negative (Negative)
[2020-01-19] MEDS: LIDOCAINE 5% 1 PATCH TD SCH ×2 (01:27→21:00)
[2020-01-19] MEDS ORDERED: HYDROmorphone INJ 2 MG/ML SYR/VIAL IV PRN ×2 (01:57→20:08)
[2020-01-19] MEDS ORDERED: HYDROmorphone INJ 2 MG/ML SYR/VIAL ONE (01:58)
[2020-01-19] MEDS ORDERED: SODIUM CHLORIDE 0.9% 1000ML 1,000 ML IV ONE (04:44)
[2020-01-19] MEDS: HEPARIN SOD 5,000 UNIT/0.5 ML VIAL SQ SCH ×3 (04:50→20:22)
[2020-01-19] MEDS: FLUTICASONE/VILANTEROL 200/25MCG 14 PUFFS/INHALER INH SCH (08:03)
[2020-01-19] MEDS: GABAPENTIN 100 MG CAP PO SCH ×3 (08:04→20:21)
[2020-01-19] MEDS: carvediloL 12.5 MG TAB PO SCH ×2 (08:04→20:18)
[2020-01-19] MEDS: CEROVITE ADV FORMULA TAB PO SCH (08:04)
[2020-01-19] MEDS: DOCUSATE SODIUM 100 MG CAP PO SCH ×2 (08:04→20:17)
[2020-01-19] MEDS: ASPIRIN 81 MG ECTAB PO SCH (08:05)
[2020-01-19] MEDS: NIFEdipine EXTENDED REL 30 MG TABCR PO SCH ×2 (08:06→20:23)
[2020-01-19] MEDS: OMEGA-3 (PURIFIED FISH OIL) 1 GM CAP PO SCH (08:06)
[2020-01-19] MEDS: SERTRALINE HCL 100 MG TABLET PO SCH (08:07)
[2020-01-19] MEDS: INSULIN GLARGINE SOLOSTAR 100 UNITS/ML 3 ML PEN SC SCH ×3 (08:10→21:08)
[2020-01-19] MEDS: INSULIN ASPART 100 UNITS/ML 3 ML PEN SC SCH ×5 (08:11→21:09)
--- NOTE | 2020-01-19 13:09 | XRay Report ---
XR lumbar spine 2-3V CLINICAL HISTORY: Back Pain COMPARISON STUDY: 04/20/2017 FINDINGS: There is no pathologic bowel dilatation. Pelvic basin calcifications likely represent ossif ied uterine fibroids. There are surgical clips within the right upper quadrant consistent with a prio r cholecystectomy. There are multilevel degenerative changes in the lumbar spine. There is a grade 1 spondylolisthesis of L3 and L4. There are no acute fractures. No destructive lesions are visualized. IMPRESSION: Stable degenerative change. No acute fractures identified. ACT 112: Negative or not required by law. Electronically signed by: Garret Gallagher M.D. 01/19/2020 1:08 PM
--- NOTE | 2020-01-19 13:11 | XRay Report ---
XR hip [facility] 2v w pelvis CLINICAL HISTORY: Pelvic and hip pain COMPARISON STUDY: No previous studies for comparison. FINDINGS: No acute fractures are visualized. There are no dislocations. There is no SI joint diastase s. There is no symphysis diastases. Mild degenerative changes are present within each hip. There is l eft SI joint sclerosis. Pelvic base and calcifications likely represent represent calcifications with in uterine fibroids IMPRESSION: 1. Mild degenerative changes in the hips 2. No acute fractures ACT 112: Negative or not required by law. Electronically signed by: Garret Gallagher M.D. 01/19/2020 1:09 PM
--- NOTE | 2020-01-19 16:11 | Hospitalist Progress Note ---
Date of Service January 19, 2020 Assessment & Plan (1) Symptomatic bradycardia: Patient is a 74 y- female with H/O DM II, HTN, HLD, CKD stage III, history of PSVT, asthma, GERD, diabetic retinopathy and polyneuropathy, osteoporosis and depression who presents to ED at the referral of PCP secondary to bradycardia. Symptomatic bradycardia H/O PSVT S/P IV glucagon for reversal of beta-blockade TSH: normal [place] Screen: Negative --ECHO: Normal left ventricular chamber size with mild concentric LVH. EF 60 to 65%. No segmental left ventricular wall motion abnormalities. Grade 2 diastolic dysfunction. Moderate aortic valve sclerosis without stenosis. Mild tricuspid regurgitation. Pulmonary hypertension with PA systolic pressure 70 mmHg. Interatrial septum bows towards right atrium consistent with elevated left atrial pressure. Aortic valve sclerosis moderate, without significant aortic valvular stenosis. --S/P implantation of permanent pacemaker POD #3 --Appreciate Cardiology Help --Continue Carvedilol, nifedipine --Needs follow-up with cardiology upon discharge Back Pain: Lumbar X ray:Stable degenerative change. No acute fractures identified. Hip X ray:Mild degenerative changes in the hips. No acute fractures Pain Control PT/OT Orthopedics consulted (2) Chest pain: Had Nuclear stress test 12/15 Cardiac enzymes negative Echo--normal segmental wall motion abnormalities Continue aspirin, statin Likely due to elevated BP BP elevated likely due to pain (3) Diabetes mellitus: Hb A1C 10.0 on 12/27/19 Lantus/novolog per protocol Monitor BGs Chronic Dizziness Meclizine PRN Advised to follow up with ENT as outpatient Fall precautions PT requested for Jan (4) HTN (hypertension): BP Variable Continue carvedilol 12.5 mg twice daily, nifedipine 90 mg twice daily Resume losartan at lower dose--25mg daily Monitor (5) HLD (hyperlipidemia): Hold Statin due to elevated CK Monitor CK in AM (6) History of PSVT (paroxysmal supraventricular tachycardia): Continue nifedipine, Coreg (7) CKD (chronic kidney disease) stage 3, GFR 30-59 ml/min: Acute Kidney Injury on CKD III Baseline Cr 1.3-1.5 Cr:2.27>>1.37 Renal USD:Unremarkable sonographic assessment of the kidneys. The bladder was decompressed and grossly unremarkable. Monitor renal function Avoid Nephrotoxic agents as able Received IV fluids (8) GERD (gastroesophageal reflux disease): continue PPI (9) Diabetic neuropathy: Increase gabapentin to 200mg TID (10) Asthma: No signs of Exacerbation Continue home inhalers (11) Depression: continue zoloft (12) DVT prophylaxis: SQ heparin Disposition: PT/OT prior to discharge Admission and Anticipated Discharge Date Admission Date: January 15, 2020 Subjective Patient is seen and examined at bedside this morning Complains of sciatic pain since last night --grades it 8/10 Dizziness improved Blood pressure elevated likely due to pain Renal function improved Denies any chest pain, SOB, nausea, abd pain, dysuria Review of Systems Review of Systems: All systems reviewed & are unremarkable except as noted in HPI & below Physical Exam Physical Exam: Physical Exam: Vitals signs as noted above General Appearance:Obese, no apparent distress Head: normocephalic, Atraumatic Eyes: normal inspection, EOMI Neck: supple, Trachea midline Respiratory/Chest: Normal breath sounds, CTA, No accessory muscle use, +Pacemaker on Left Cardiovascular: S1, S2, No murmur Abdomen/GI:Soft, Non tender, Bowel sounds present Back: Right Paravertebral tenderness Extremities/Musculoskelatal:normal inspection, Trace edema Neurologic/Psych:AAOX3, grossly no focal neurological deficits Skin: normal color, warm Results & Data Results & Data ([facility]) Vital Signs (Past 12 Hours) Vital Signs Temp Pulse Resp BP BP Pulse Ox 01/19/20 15:20 37.5 C 70 24 169/93 H 95 01/19/20 11:36 37.5 C 61 18 200/72 H 96 01/19/20 07:09 37.0 C 70 18 166/64 H 92 Laboratory Results Short CBC 01/19/20 Range/Units 00:32 WBC 11.30 H (4.8-10.8) K/uL Hgb 11.8 L (12.0-16.0) g/dL Hct 36.0 L (37-47) % Plt Count 185 (130-400) K/uL BMP 01/19/20 00:32 Sodium 135 L Potassium 4.1 Chloride 104 Carbon Dioxide 26 BUN 36 H Creatinine 1.37 H D Glucose 166 H Calcium 9.0 Cardiac Enzymes 01/19/20 Range/Units 00:32 Total Creatine Kinase 360 H (26-192) U/L Liver Function 01/19/20 Range/Units 00:32 Total Bilirubin 0.3 (0.2-1) mg/dl AST 25 (15-37) U/L ALT 16 (12-78) U/L Alkaline Phosphatase 97 (45-117) U/L Albumin 3.2 L (3.4-5.0) gm/dl Urine 01/19/20 Range/Units Unknown Urine Color Yellow Urine Appearance Clear (Clear) Urine pH 5.0 (4.5-7.5) Ur Specific [place] 1.018 (1.000-1.030) Urine Protein Negative (Negative) Urine Glucose (UA) Negative (Negative)
[2020-01-19] MEDS: LOSARTAN POTASSIUM 25 MG TAB PO SCH (16:52)
[2020-01-20] MEDS: HEPARIN SOD 5,000 UNIT/0.5 ML VIAL SQ SCH ×3 (06:02→20:48)
[2020-01-20 07:08] LABS: Hematocrit (blood only) 34.7 % (37-47); Hemoglobin 10.9 g/dL (12.0-16.0); Mean Corpuscular Hemoglobin 26.8 pg (25-34); Mean Corpuscular Hgb Conc 31.4 g/dL (32-36); Mean Corpuscular Volume 85.5 fL (80-100); Mean Platelet Volume 11.3 fL (7.4-10.4); Platelet Count 199 K/uL (130-400); RDW Standard Deviation 43.5 fL (36.4-46.3); Red Blood Count 4.06 M/uL (4.2-5.4); White Blood Count 8.69 K/uL (4.8-10.8)
[2020-01-20] MEDS: OXYCODONE HCL IR 5 MG TAB (IMMEDIATE RELEASE) PO PRN ×2 (07:36→17:35)
[2020-01-20 07:53] LABS: BUN Creatinine Ratio 23.1 (10-20); Calcium 9.3 mg/dl (8.5-10.1); Creatinine Clr Calc Pharmacy 55.4 ml/min; Est GFR (African American) 63.8; Est GFR (Non-African American) 55.1; Potassium 4.3 mmol/L (3.5-5.1)
[2020-01-20] MEDS: GABAPENTIN 100 MG CAP PO SCH ×3 (08:16→20:44)
[2020-01-20] MEDS: OMEGA-3 (PURIFIED FISH OIL) 1 GM CAP PO SCH (08:16)
[2020-01-20] MEDS: SERTRALINE HCL 100 MG TABLET PO SCH (08:17)
[2020-01-20] MEDS: NIFEdipine EXTENDED REL 30 MG TABCR PO SCH ×2 (08:17→20:48)
[2020-01-20] MEDS: CEROVITE ADV FORMULA TAB PO SCH (08:17)
[2020-01-20] MEDS: FLUTICASONE/VILANTEROL 200/25MCG 14 PUFFS/INHALER INH SCH (08:17)
[2020-01-20] MEDS: ASPIRIN 81 MG ECTAB PO SCH (08:17)
[2020-01-20] MEDS: INSULIN ASPART 100 UNITS/ML 3 ML PEN SC SCH ×4 (08:19→20:43)
[2020-01-20] MEDS: INSULIN GLARGINE SOLOSTAR 100 UNITS/ML 3 ML PEN SC SCH (08:20)
[2020-01-20] MEDS: DOCUSATE SODIUM 100 MG CAP PO SCH ×2 (08:25→20:45)
[2020-01-20] MEDS: carvediloL 12.5 MG TAB PO SCH ×2 (09:20→20:46)
[2020-01-20] MEDS: LOSARTAN POTASSIUM 25 MG TAB PO SCH (09:20)
[2020-01-20] MEDS ORDERED: INSULIN GLARGINE SOLOSTAR 100 UNITS/ML 3 ML PEN SC ONE ×3 (11:57→21:00)
[2020-01-20] MEDS ORDERED: PHARMACY GLYCEMIC MGMT CONSULT PRN (12:08)
[2020-01-20] MEDS: HYDROmorphone INJ 0.5 MG/0.5 ML SYR IV PRN ×2 (12:43→21:06)
--- NOTE | 2020-01-20 14:26 | Pharmacy Report ---
Glycemic Control Consultation - Date of Service January 20, 2020 - Scope Scope: Glycemic Pharmacist consulted for glycemic control and to write orders per [facility] inpatient glycemic control protocol. - Objective Weight: 102 kg Accuchecks BSG (last 24hrs): 01/19/20 01/19/20 01/20/20 16:29 20:46 06:45 Glucose 164 H POC Glucose 135 H 216 H 01/20/20 01/20/20 01/20/20 07:11 11:41 11:42 Glucose POC Glucose 166 H 312 H* 309 H* Laboratory Data (last 24hrs): 01/20/20 06:45 Potassium 4.3 Carbon Dioxide 27 Anion Gap 6.0 Creatinine 1.00 D Est Cr Clr Drug Dosing 55.4 - Recent Pertinent Medications Outpatient Anti-diabetic Regimen: * Lantus per scale (patient unable to remember scale during interview) * Previously managed with PO medications, but these have since been discontinued * A1c ordered for tomorrow morning The patient is currently receiving: * Basal insulin: Lantus scale: 0-25 units every 12 hours * Correctional Insulin: Novolog Correction per scale ACHS Goal Range: Low 110 mg/dL - High 140 mg/dL Correction Factor: 40 mg/dL/unit * Prandial insulin: Per carb ratio of 1 unit per 12 grams CHO consumed * Oral Agents: none - Assessment & Plan Assessment & Plan: ASSESSMENT: * ER is a 74 year old female admitted on 01/14 with symptomatic bradycardia * Subsequent pacemaker placement on 01/15 * BSGs have been variably controlled during this admission - typically peaking at lunchtime BSG check * This is likely due to inadequate carb coverage * Pharmacy consulted today at lunchtime for BSG of 309 mg/dL * Will tighten carb coverage and increase basal insulin today * Will maintain current CF, as patient trends down nicely when corrected for elevated BSGs PLAN FOR INPATIENT GLYCEMIC CONTROL: * Basal insulin * Lantus 12 units given this morning * Ordered 20 units with lunch at time of consult * Will utilize Lantus scale this evening (10-25 units) - see EHR for details * Reassess basal in AM * Bolus insulin - tighten carb coverage (may require further tightening tomorrow) * NovoLog per scale ACHS or Q6hrs while NPO * Goal Range: Low 110 mg/dL - High 140 mg/dL * Correction Factor: 40 mg/dL/unit * Nutritional / Prandial insulin per carb ratio of 1 unit per 8 grams CHO consumed * Please note that the plan above was derived based on current level of insulin resistance and hospital stress. These recommendations are appropriate for inpatient admission only. Plan of care upon discharge will need to be reassessed to avoid potential outpatient hypo/hyperglycemia. Thank you.
--- NOTE | 2020-01-20 16:36 | Hospitalist Progress Note ---
Date of Service January 20, 2020 Assessment & Plan (1) Symptomatic bradycardia: Patient is a 74 y- female with H/O DM II, HTN, HLD, CKD stage III, history of PSVT, asthma, GERD, diabetic retinopathy and polyneuropathy, osteoporosis and depression who presents to ED at the referral of PCP secondary to bradycardia. Symptomatic bradycardia H/O PSVT S/P IV glucagon for reversal of beta-blockade TSH: normal [place] Screen: Negative --ECHO: Normal left ventricular chamber size with mild concentric LVH. EF 60 to 65%. No segmental left ventricular wall motion abnormalities. Grade 2 diastolic dysfunction. Moderate aortic valve sclerosis without stenosis. Mild tricuspid regurgitation. Pulmonary hypertension with PA systolic pressure 70 mmHg. Interatrial septum bows towards right atrium consistent with elevated left atrial pressure. Aortic valve sclerosis moderate, without significant aortic valvular stenosis. --S/P implantation of permanent pacemaker POD #4 --Appreciate Cardiology Help --Continue Carvedilol, nifedipine --Needs follow-up with cardiology upon discharge Back Pain: Lumbar X ray:Stable degenerative change. No acute fractures identified. Hip X ray:Mild degenerative changes in the hips. No acute fractures Pain Control Continue PT/OT: May need SNF Orthopedics consulted--pending Input Gabapentin increased to 200 mg 3 times daily (2) Chest pain: Had Nuclear stress test 12/15 Cardiac enzymes negative Echo--normal segmental wall motion abnormalities Likely due to elevated BP Continue aspirin, statin (3) Diabetes mellitus: Hb A1C 10.0 on 12/27/19 Lantus/novolog per protocol Monitor BGs Chronic Dizziness Meclizine PRN Advised to follow up with ENT as outpatient Fall precautions PT requested for Jan (4) HTN (hypertension): BP Variable Continue carvedilol 12.5 mg twice daily, nifedipine 90 mg twice daily Continue losartan 25mg daily Monitor (5) HLD (hyperlipidemia): On Statin (6) History of PSVT (paroxysmal supraventricular tachycardia): Continue nifedipine, Coreg (7) CKD (chronic kidney disease) stage 3, GFR 30-59 ml/min: Acute Kidney Injury on CKD III Baseline Cr 1.3-1.5 Cr:2.27>>1.37>>1.00 Renal USD:Unremarkable sonographic assessment of the kidneys. The bladder was decompressed and grossly unremarkable. Monitor renal function Avoid Nephrotoxic agents as able Received IV fluids (8) GERD (gastroesophageal reflux disease): continue PPI (9) Diabetic neuropathy: Increased gabapentin to 200mg TID (10) Asthma: No signs of Exacerbation Continue home inhalers (11) Depression: continue zoloft (12) DVT prophylaxis: SQ heparin Disposition: PT/OT prior to discharge May need SNF placement Admission and Anticipated Discharge Date Admission Date: January 15, 2020 Subjective Patient is seen and examined at bedside this morning Back pain slightly better today No significant dizziness today Denies any chest pain, SOB, nausea, abd pain, dysuria Offers no other comaplints Review of Systems Review of Systems: All systems reviewed & are unremarkable except as noted in HPI & below Physical Exam Physical Exam: Physical Exam: Vitals signs as noted above General Appearance:Obese, no apparent distress Head: normocephalic, Atraumatic Eyes: normal inspection, EOMI Neck: supple, Trachea midline Respiratory/Chest: Normal breath sounds, CTA, No accessory muscle use, +Pacemaker on Left Cardiovascular: S1, S2, No murmur Abdomen/GI:Soft, Non tender, Bowel sounds present Back: Right Paravertebral tenderness Extremities/Musculoskelatal:normal inspection, Trace edema Neurologic/Psych:AAOX3, grossly no focal neurological deficits Skin: normal color, warm Results & Data Results & Data ([facility]) Vital Signs (Past 12 Hours) Vital Signs Temp Pulse Pulse Resp BP Pulse Ox 01/20/20 16:00 36.8 C 68 16 139/74 99 01/20/20 15:00 60 01/20/20 11:20 36.5 C 62 19 146/77 H 95 01/20/20 07:59 37.0 C 60 18 158/84 H 95 01/20/20 07:00 60 Laboratory Results Short CBC 01/20/20 Range/Units 06:45 WBC 8.69 (4.8-10.8) K/uL Hgb 10.9 L (12.0-16.0) g/dL Hct 34.7 L (37-47) % Plt Count 199 (130-400) K/uL BMP 01/20/20 06:45 Sodium 138 Potassium 4.3 Chloride 105 Carbon Dioxide 27 BUN 23 H Creatinine 1.00 D Glucose 164 H Calcium 9.3 Cardiac Enzymes 01/20/20 Range/Units 06:45 Total Creatine Kinase 176 (26-192) U/L
[2020-01-20] MEDS: LIDOCAINE 5% 1 PATCH TD SCH (20:43)
[2020-01-20] MEDS: PRAVASTATIN SOD 40 MG TAB PO SCH (20:47)
[2020-01-20] MEDS: ACETAMINOPHEN 325 MG TAB PO PRN (20:48)
[2020-01-21] MEDS: OXYCODONE HCL IR 5 MG TAB (IMMEDIATE RELEASE) PO PRN (00:02)
[2020-01-21] MEDS: HEPARIN SOD 5,000 UNIT/0.5 ML VIAL SQ SCH ×2 (05:42→12:52)
[2020-01-21 07:35] LABS: BUN Creatinine Ratio 22.3 (10-20); Calcium 9.8 mg/dl (8.5-10.1); Est GFR (African American) 66.2; Est GFR (Non-African American) 57.1; Potassium 4.2 mmol/L (3.5-5.1)
[2020-01-21 08:00] LABS: Estimated Average Glucose 237 mg/dl; Hemoglobin A1C 9.9 % (4.5-5.6)
[2020-01-21] MEDS: DOCUSATE SODIUM 100 MG CAP PO SCH (08:00)
[2020-01-21] MEDS: GABAPENTIN 100 MG CAP PO SCH ×2 (08:00→12:52)
[2020-01-21] MEDS: FLUTICASONE/VILANTEROL 200/25MCG 14 PUFFS/INHALER INH SCH (08:00)
[2020-01-21] MEDS: NIFEdipine EXTENDED REL 30 MG TABCR PO SCH (08:00)
[2020-01-21] MEDS: CEROVITE ADV FORMULA TAB PO SCH (08:01)
[2020-01-21] MEDS: SERTRALINE HCL 100 MG TABLET PO SCH (08:01)
[2020-01-21] MEDS: LOSARTAN POTASSIUM 25 MG TAB PO SCH (08:01)
[2020-01-21] MEDS: ASPIRIN 81 MG ECTAB PO SCH (08:01)
[2020-01-21] MEDS: INSULIN ASPART 100 UNITS/ML 3 ML PEN SC SCH ×2 (08:02→12:02)
[2020-01-21] MEDS: OMEGA-3 (PURIFIED FISH OIL) 1 GM CAP PO SCH (08:04)
[2020-01-21] MEDS: carvediloL 12.5 MG TAB PO SCH (08:04)
[2020-01-21] MEDS ORDERED: INSULIN GLARGINE SOLOSTAR 100 UNITS/ML 3 ML PEN SC SCH ×2 (09:00→21:00)
--- NOTE | 2020-01-21 09:21 | Pharmacy Report ---
Pharmacy Glycemic Short Note 2 - Date of Service January 21, 2020 - Glycemic Short BSG Results (Last 24 hours): 01/20/20 01/20/20 01/20/20 11:41 11:42 16:48 Glucose POC Glucose 312 H* 309 H* 191 H 01/20/20 01/21/20 01/21/20 20:12 06:35 07:26 Glucose 159 H POC Glucose 228 H 161 H OUTPATIENT ANTIDIABETIC REGIMEN: * Lantus per scale (patient unable to remember scale during interview) * Previously managed with PO medications, but these have since been discontinued * A1c: 9.9% (01/21/20) ASSESSMENT: * Patient is now POD #5 s/p pacemaker insertion * Pharmacy consulted yesterday for pre-lunch BSG of 309 mg/dL * BSGs of 191, 228 mg/dL last evening * -Will further tighten Novolog parameters today * Patient received 80 units of insulin * 50 units of basal, 30 units of prandial/correctional * Fasting BSG this AM of 161 mg/dL * Will increase basal insulin today PLAN FOR INPATIENT GLYCEMIC CONTROL: * Hold outpatient oral diabetes medications * Basal insulin - * Lantus 30 units SQ this morning * Lantus scale this evening 20-30 units (see EHR for details) * Bolus insulin - tighten * NovoLog per scale ACHS or Q6hrs while NPO * Goal Range: Low 110 mg/dL - High 140 mg/dL * Correction Factor: 30 mg/dL/unit * Nutritional / Prandial insulin per carb ratio of 1 unit per 6 grams CHO consumed PLAN FOR DISCHARGE: * to be determined
[2020-01-21] MEDS: HydrALAZINE HCL 20 MG/ML VIAL IV PRN (12:03)
--- NOTE | 2020-01-21 13:40 | Hospitalist Progress Note ---
Date of Service January 21, 2020 Assessment & Plan (1) Symptomatic bradycardia: Patient is a 74 y- female with H/O DM II, HTN, HLD, CKD stage III, history of PSVT, asthma, GERD, diabetic retinopathy and polyneuropathy, osteoporosis and depression who presents to ED at the referral of PCP secondary to bradycardia. Symptomatic bradycardia H/O PSVT S/P IV glucagon for reversal of beta-blockade TSH: normal [place] Screen: Negative --ECHO: Normal left ventricular chamber size with mild concentric LVH. EF 60 to 65%. No segmental left ventricular wall motion abnormalities. Grade 2 diastolic dysfunction. Moderate aortic valve sclerosis without stenosis. Mild tricuspid regurgitation. Pulmonary hypertension with PA systolic pressure 70 mmHg. Interatrial septum bows towards right atrium consistent with elevated left atrial pressure. Aortic valve sclerosis moderate, without significant aortic valvular stenosis. --S/P implantation of permanent pacemaker POD #4 --Appreciate Cardiology Help --Continue Carvedilol, nifedipine --Needs follow-up with cardiology upon discharge Back Pain: Lumbar X ray:Stable degenerative change. No acute fractures identified. Hip X ray:Mild degenerative changes in the hips. No acute fractures Pain Control Continue PT/OT: May need SNF--Patient refused Rehab placement Gabapentin increased to 200 mg 3 times daily Lidocaine patch (2) Chest pain: Had Nuclear stress test 12/15 Cardiac enzymes negative Echo--normal segmental wall motion abnormalities Likely due to elevated BP Continue aspirin, statin (3) Diabetes mellitus: Hb A1C 10.0 on 12/27/19 Lantus/novolog per protocol Monitor BGs Chronic Dizziness Meclizine PRN Advised to follow up with ENT as outpatient Fall precautions PT requested for Jan (4) HTN (hypertension): BP Variable Continue carvedilol 12.5 mg twice daily, nifedipine 90 mg twice daily Continue losartan 25mg daily Monitor (5) HLD (hyperlipidemia): On Statin (6) History of PSVT (paroxysmal supraventricular tachycardia): Continue nifedipine, Coreg (7) CKD (chronic kidney disease) stage 3, GFR 30-59 ml/min: Acute Kidney Injury on CKD III Baseline Cr 1.3-1.5 Cr:2.27>>1.37>>1.00 Renal USD:Unremarkable sonographic assessment of the kidneys. The bladder was decompressed and grossly unremarkable. Monitor renal function Avoid Nephrotoxic agents as able Received IV fluids (8) GERD (gastroesophageal reflux disease): continue PPI (9) Diabetic neuropathy: Increased gabapentin to 200mg TID (10) Asthma: No signs of Exacerbation Continue home inhalers (11) Depression: continue zoloft (12) DVT prophylaxis: SQ heparin Disposition: Patient refused rehab placement Plan to discharge home with home health services Admission and Anticipated Discharge Date Admission Date: January 15, 2020 Subjective Patient is seen and examined at bedside this morning States feeling much better today Back pain improved Denies any chest pain, SOB, nausea, abd pain, dysuria No new complaints Review of Systems Review of Systems: All systems reviewed & are unremarkable except as noted in HPI & below Physical Exam Physical Exam: Physical Exam: Vitals signs as noted above General Appearance:Obese, no apparent distress Head: normocephalic, Atraumatic Eyes: normal inspection, EOMI Neck: supple, Trachea midline Respiratory/Chest: Normal breath sounds, CTA, No accessory muscle use, +Pacemaker on Left Cardiovascular: S1, S2, No murmur Abdomen/GI:Soft, Non tender, Bowel sounds present Back: Right Paravertebral tenderness Extremities/Musculoskelatal:normal inspection, Trace edema Neurologic/Psych:AAOX3, grossly no focal neurological deficits Skin: normal color, warm Results & Data Results & Data ([facility]) Vital Signs (Past 12 Hours) Vital Signs Temp Pulse Pulse Resp BP BP Pulse Ox 01/21/20 11:51 36.6 C 60 20 185/81 H 98 01/21/20 08:00 36.6 C 61 20 166/89 H 98 01/21/20 07:00 60 01/21/20 03:58 36.7 C 65 18 135/70 96 Laboratory Results [facility] 01/21/20 06:35 Sodium 137 Potassium 4.2 Chloride 105 Carbon Dioxide 27 BUN 22 H Creatinine 0.97 Glucose 159 H Calcium 9.8
--- NOTE | 2020-01-21 13:53 | Discharge Summary ---
Date of Service January 21, 2020 Admission HPI Per Admitting Provider This is a 74-year-old female who has significant past medical history of T2DM, HTN, HLD, CKD stage III, history of PSVT, asthma, GERD, diabetic retinopathy and polyneuropathy, osteoporosis and depression who presents to ED at the referral of PCP secondary to bradycardia. According to patient she was feeling dizzy, lightheaded, presyncopal and short of breath today. Her friend who was with her placed a pulse ox on her which showed heart rate in the 30s. She called her PCP and was seen immediately. EKG done in clinic was concerning for junctional bradycardia with heart rate 36. She was then referred to ED and otherwise hemodynamically stable. In ER today she had EKG which revealed a sinus bradycardia. He is on Coreg 12.5 mg and Procardia 90 mg twice daily. Both medications were last taken this morning. In ED she was given 2 g of IV glucagon which in approximately 20 minutes did improve her heart rates into the 50s and 60s. She states over the last several weeks she has been experiencing dizziness described as a spinning sensation for which she has been taking meclizine for, intermittent lightheadedness and presyncope, chest pain with and without exertion and CORTES. She was seen and evaluated by cardiology in clinic and underwent nuclear stress evaluation on 12/15 which was unremarkable. She states chest pain can occur at rest or when she is exerting herself. Chest pain typically resolves within 20 minutes. She also admits to significant amount of stress in life. She is extremely bummed about being mid to hospital as she was supposed to travel to [place] in 2 days for a wedding. She otherwise denies any recent illness, fever, chills, sweats, syncope, palpitations, shortness with at rest, cough, hemoptysis, nausea, vomiting, diarrhea, abdominal pain, change in bowel or urinary habits. She been taking medications as prescribed. She states she occasionally is significantly hypertensive at bedtime for which she takes as needed clonidine for. Blood pressure is usually greater than 150 or greater than 110 diastolically. Clonidine improves her pressure. In ED patient was symptomatic and significantly bradycardic in the 30s. She received 2 g IV glucagon which did improve heart rate to 50s and 60s. During my evaluation she complained of acute onset dizziness and lightheadedness. At that time heart monitor read asystole, but patient maintained consciousness and I did feel a palpable pulse. Within 10 to 20 seconds her heart rate improved into the 30s, 40s and 50s. She did remain modestly hypertensive while in ED, BP 170/94. Lab work revealed CBC that was generally unremarkable, sodium 135, K3.4, BUN 29, creatinine 1.38, glucose 203, TSH WNL. X-ray was negative for any acute abnormality. Admission Exam Per Admitting Provider Physical Exam Physical Exam: Constitutional: WD/WN, vitals as above, NAD, sitting up in bed, pleasant, conversing easily Head: Normocephalic, Atraumatic Eyes: PERRL, conjunctivae normal, anicteric sclerae ENMT: external ear and nose normal, external ear canal clean and dry, bilateral TMs white with normal anatomic landmarks, oropharynx normal Neck: trachea midline, no thyromegaly normal visual inspection Respiratory: normal respiratory effort, lungs clear to auscultation, no wheeze, rales, rhonchi. Normal insp/exp effort, no accessory muscle use Cardiovascular: Bradycardic rate, regular rhythm, no murmur, no edema Vessels: no JVD or carotid bruit Chest: normal inspection of chest Abdomen: normal bowel sounds, soft, nontender, no hepatosplenomegaly Musculoskeletal: no cyanosis or clubbing, extremities motor strength 5/5 Skin: no rashes, warm and dry normal turgor Neurologic: PERRL, EOMI, accommodation nl, no face palsy, no dysarthria CN's II-XI intact bilaterally and moves all extremities Psychiatric: A+Ox3, euthymic affect Lymphatic: no cervical or axillary lymphadenopathy : deferred Principal Diagnosis Symptomatic bradycardia Uncontrolled hypertension Chest pain Lumbago Discharge Data Allergies Allergy/AdvReac Type Severity Reaction Status Date / Time No Known Allergies Allergy Mild NONE Unverified 01/15/20 18:01 Consultations 01/15/20 16:36 ED Decision to Admit Stat 01/15/20 20:11 Consult Cardiology Routine 01/16/20 11:37 Consult Cardiac Electrophysiology Routine 01/19/20 09:13 Consult Case Management - Discharge Planning Routine Procedures Performed Operation Date: 01/16/20 15:30 Actual Procedures p Pacer with A/V Leads (Dual) - Jamil Ochoa MD -ECHO: Normal left ventricular chamber size with mild concentric LVH. EF 60 to 65%. No segmental left ventricular wall motion abnormalities. Grade 2 diastolic dysfunction. Moderate aortic valve sclerosis without stenosis. Mild tricuspid regurgitation. Pulmonary hypertension with PA systolic pressure 70 mmHg. Interatrial septum bows towards right atrium consistent with elevated left atrial pressure. Aortic valve sclerosis moderate, without significant aortic valvular stenosis. Lumbar X ray:Stable degenerative change. No acute fractures identified. Hip X ray:Mild degenerative changes in the hips. No acute fractures Ordered Studies 01/15/20 23:14 CT head/brain wo con Urgent 01/16/20 12:50 CL Cath Imgs for PACS use only Routine 01/18/20 09:13 US renal/blad retro comp Routine 01/19/20 00:03 CT abd pelvis wo con Urgent Diabetes Follow up Diabetes Follow-up Needed for HgbA1c >9% Hospital Course (1) Symptomatic bradycardia: Patient is a 74 y- female with H/O DM II, HTN, HLD, CKD stage III, history of PSVT, asthma, GERD, diabetic retinopathy and polyneuropathy, osteoporosis and depression who presents to ED at the referral of PCP secondary to bradycardia. Symptomatic bradycardia H/O PSVT S/P IV glucagon for reversal of beta-blockade TSH: normal [place] Screen: Negative --ECHO: Normal left ventricular chamber size with mild concentric LVH. EF 60 to 65%. No segmental left ventricular wall motion abnormalities. Grade 2 diastolic dysfunction. Moderate aortic valve sclerosis without stenosis. Mild tricuspid regurgitation. Pulmonary hypertension with PA systolic pressure 70 mmHg. Interatrial septum bows towards right atrium consistent with elevated left atrial pressure. Aortic valve sclerosis moderate, without significant aortic valvular stenosis. --S/P implantation of permanent pacemaker POD #4 --Appreciate Cardiology Help --Continue Carvedilol, nifedipine --Needs follow-up with cardiology upon discharge Back Pain: Lumbar X ray:Stable degenerative change. No acute fractures identified. Hip X ray:Mild degenerative changes in the hips. No acute fractures Pain Control Continue PT/OT: May need SNF--Patient refused Rehab placement Gabapentin increased to 200 mg 3 times daily Lidocaine patch (2) Chest pain: Had Nuclear stress test 12/15 Cardiac enzymes negative Echo--normal segmental wall motion abnormalities Likely due to elevated BP Continue aspirin, statin (3) Diabetes mellitus: Hb A1C 10.0 on 12/27/19 Lantus/novolog per protocol Monitor BGs Chronic Dizziness Meclizine PRN Advised to follow up with ENT as outpatient Fall precautions PT requested for Jan (4) HTN (hypertension): BP Variable Continue carvedilol 12.5 mg twice daily, nifedipine 90 mg twice daily Continue losartan 25mg daily Monitor (5) HLD (hyperlipidemia): On Statin (6) History of PSVT (paroxysmal supraventricular tachycardia): Continue nifedipine, Coreg (7) CKD (chronic kidney disease) stage 3, GFR 30-59 ml/min: Acute Kidney Injury on CKD III Baseline Cr 1.3-1.5 Cr:2.27>>1.37>>1.00 Renal USD:Unremarkable sonographic assessment of the kidneys. The bladder was decompressed and grossly unremarkable. Monitor renal function Avoid Nephrotoxic agents as able Received IV fluids (8) GERD (gastroesophageal reflux disease): continue PPI (9) Diabetic neuropathy: Increased gabapentin to 200mg TID (10) Asthma: No signs of Exacerbation Continue home inhalers (11) Depression: continue zoloft (12) DVT prophylaxis: SQ heparin Disposition: Patient refused rehab placement Plan to discharge home with home health services Total Time Total Time Spent Total Time Spent (In Minutes): 41 minutes Total Time Includes: Examination of the Patient, Discharge Planning, Medication Reconciliation, Communication With Other Providers and Other Discharge Plan Discharge Items Patient Disposition: Home - Home Health Services Reason For Visit: SYMPTOMATIC BRADYCARDIA Discharge Diagnosis: Symptomatic bradycardia Uncontrolled hypertension Chest pain Lumbago Condition on Discharge: Fair Activity: Resume your previous activity Exercise/Sports: Gradually increase as tolerated Non-emergency contact: Primary Care Provider and Mushroom Picker Call non-emergency contact if: you have any medication questions, your symptoms worsen, your pain is not controlled, your pain is worsening, your pain is unusual for you, your pain is concerning for you, you have a fever, your wound has increased redness, your wound has increased drainage and your wound pain has increased Follow-up/Referrals: Phyllis Quintanilla MD [Primary Care Provider] - 01/24/20 11:40 am (DR DAVIS OFFICE WILL CALL WITH A FOLLOW UP APT) Diet: Carb Consistent or DM2 and Heart Healthy Addtl Attending Provider Instructions: Follow-up with your primary care physician Dr. Phyllis Quintanilla on January 24, 2020 at 11:40AM as scheduled Follow-up with your clinical veterinarian Dr. Mario--in 2 to 3 weeks as advised Get pacemaker checked as outpatient as advised. Seek immediate medical attention if your symptoms reoccur or worsen Pending Studies at Discharge: No Stand-Alone Forms: My [facility], Smoking Cessation Medications and DC Order Prescriptions: New losartan 25 mg Tablet 25 mg PO QAM 30 Days Qty: 30 RF: 0 gabapentin 100 mg capsule 200 mg PO TID 30 Days Qty: 180 RF: 0 Continued fluticasone propion-salmeterol [Advair Diskus] 250-50 mcg/dose blister with d evice 1 inh INHALATION BID RF: 0 clonidine HCl 0.1 mg Tablet 0.1 mg PO DAILY PRN (Reason: hypertension) RF: 0 carvedilol 12.5 mg Tablet 12.5 mg PO BID RF: 0 cetirizine 10 mg Tablet 10 mg PO DAILY PRN (Reason: Allergic Symptoms) RF: 0 nifedipine 90 mg Tablet Extended Release 90 mg PO BID RF: 0 sertraline 100 mg Tablet 100 mg PO QAM RF: 0 aspirin 81 mg Tablet,Delayed Release (Dr/Ec) 81 mg PO DAILY RF: 0 pravastatin 80 mg Tablet 80 mg PO QPM RF: 0 meclizine 25 mg Tablet 25 mg PO TID PRN (Reason: Dizziness) RF: 0 omeprazole 20 mg Capsule,Delayed Release(Dr/Ec) 20 mg PO BID PRN (Reason: Gi Upset) RF: 0 albuterol sulfate 90 mcg/actuation Hfa Aerosol Inhaler 2 puff INHALATION QID PRN (Reason: SOB) RF: 0 insulin glargine 100 unit/mL (3 mL) Insulin Pen 32 unit SUBCUT BID RF: 0 Centrum 18-400 mg-mcg Tablet 1 tab PO DAILY RF: 0 omega 4-djw-lva-fish oil [Fish Oil] 1,000 mg (120 mg-180 mg) Capsule 1 cap PO DAILY RF: 0 benzonatate 100 mg capsule 100 mg PO BID PRN (Reason: Cough) RF: 0 Discharge Orders: Discharge Order (Routine); Ordered 01/21/20 Ordered By: Min Jones/Other Patient Handouts: Discharge Instructions for Pacemaker Implantation, Gabapentin capsules or tablets, Losartan tablets Admission Data Admit Date/Time: 01/15/20 17:15 Attending Provider: Min Jaimes Admit Provider: Nathaniel Reed Primary Care Provider: Phyllis Quintanilla Other Providers: Nathaniel Reed ; Jamil Ochoa ; Joseph Mario ; [facility] Other Interventions: Discharge Summary Assessment (RN) Last Done: 01/21/20 13:56
== END 2020-01-21 15:37 | disposition home health service (06) | DRG 243 ==
LOC: ED 15:05 → 2S 17:15 → SUATTDRO 17:15 → 2S 18:50

== ENCOUNTER 2020-09-23 14:06 | Inpatient (IN) ==
[2020-09-23 14:37] LABS: Basophils # (auto) 0.01 K/uL (0-0.2); Basophils % (auto) 0.1 %; Eosinophils # (auto) 0.09 K/uL (0-0.5); Eosinophils % (auto) 0.9 %; Hematocrit (blood only) 38.8 % (37-47); Hemoglobin 13.3 g/dL (12.0-16.0); Immature Granulocytes # (auto) 0.03 K/uL (0.00-0.02); Immature Granulocytes % (auto) 0.3 %; Lymphocytes # (auto) 4.35 K/uL (1.2-3.4); Lymphocytes % (auto) 45.6 %; Mean Corpuscular Hemoglobin 27.8 pg (25-34); Mean Corpuscular Hgb Conc 34.3 g/dL (32-36); Mean Corpuscular Volume 81.2 fL (80-100); Mean Platelet Volume 10.5 fL (7.4-10.4); Monocytes # (auto) 0.44 K/uL (0.11-0.59); Monocytes % (auto) 4.6 %; Neutrophils # (auto) 4.62 K/uL (1.4-6.5); Neutrophils % (auto) 48.5 %; Platelet Count 285 K/uL (130-400); RDW Coefficient of Variation 14.6 % (11.5-14.5); RDW Standard Deviation 43.4 fL (36.4-46.3); Red Blood Count 4.78 M/uL (4.2-5.4); White Blood Count 9.54 K/uL (4.8-10.8)
--- NOTE | 2020-09-23 14:38 | XRay Report ---
XR chest 1V portable CLINICAL HISTORY: Atypical chest pain COMPARISON STUDY: 01/09/2020 FINDINGS: The cardiac and mediastinal contours remain stable. There is mild aortic tortuosity/ectasia . There is a left subclavian dual-chamber central venous pacemaker. There is no failure. There is no focal pulmonary consolidation. There are no pleural effusions.[ IMPRESSION: No active disease in the chest. ACT 112: Negative or not required by law. Electronically signed by: Garret Gallagher M.D. 09/23/2020 2:36 PM
[2020-09-23 15:16] LABS: Alanine Aminotransferase 30 U/L (12-78); Albumin Level 4.2 gm/dl (3.4-5.0); Aspartate Aminotransferase 16 U/L (15-37); BUN Creatinine Ratio 32.7 (10-20); Blood Urea Nitrogen 37 mg/dl (7-18); Calcium 9.6 mg/dl (8.5-10.1); Carbon Dioxide 28 mmol/L (21-32); Chloride 104 mmol/L (98-107); Creatinine Clr Calc Pharmacy 53.6 ml/min; Est GFR (African American) 55.6; Glucose 161 mg/dl (70-99); Lipase 223 U/L (73-393); Potassium 4.4 mmol/L (3.5-5.1); Sodium 137 mmol/L (136-145)
[2020-09-23 15:21] LABS: Albumin Globulin Ratio 0.9 (0.9-2); Alkaline Phosphatase 104 U/L (45-117); Bilirubin,Total 0.4 mg/dl (0.2-1); Globulin 4.7 gm/dl (2.5-4.0); Total Protein 8.9 gm/dl (6.4-8.2); Troponin I < 0.015 ng/ml (0-0.045)
[2020-09-23 16:03] LABS: Influenza A virus by PCR Negative (Neg); Influenza B virus by PCR Negative (Neg); RSV by PCR Negative (Neg)
[2020-09-23 16:10] LABS: SARS CoV2 RNA(COVID-19) InHosp POSITIVE (Negative)
--- NOTE | 2020-09-23 16:43 | Electrocardiogram Report ---
Test Reason : Blood Pressure : / mmHG Vent. Rate : 082 BPM Atrial Rate : 082 BPM P-R Int : 262 ms QRS Dur : 094 ms QT Int : 386 ms P-R-T Axes : 000 001 046 degrees QTc Int : 450 ms Atrial-paced rhythm with prolonged AV conduction Nonspecific T wave abnormality Abnormal ECG When compared with ECG of 17-JAN-2020 06:26, Electronic atrial pacemaker has replaced Sinus rhythm Confirmed by Kade Grider ([id number]) on 09/23/2020 4:43:20 PM Referred By: Confirmed By:Kade Grider
--- NOTE | 2020-09-23 16:48 | History & Physical Report ---
Date of Service September 23, 2020 Assessment & Plan (1) Chest pain: Pt is 74 y/o F with PMH PAF on Eliquis, sick sinus syndrome s/p pacemaker, HTN, dyslipidemia, asthma, insulin dependent DM II presented to ER with c/o ongoing chest pressure for past 3-4 months. Recently noted increased SOB. Pt r eferred from cardiology clinic today. Pt with CP for 3-4 months described as chest pressure. H/O echo [facility] 12/2019: EF 60-65%, Moderate aortic valve sclerosis without stenosis. Mild tricuspid regurgitation with evidence of severe pulmonary hypertension. H/O [facility]isc[facility] nuclear stress report summary 11/2019: Myocardial perfusion imaging normal. No regional wall motion abnormalities. In ER pt afebrile, P: 82, R: 16, BP: 161/101 R/O ACS. Risk factors: HTN, hyperlipidemia, DM, obesity Monitor Vitals Repeat EKG in am Will trend troponin continue statin, beta kenney Nitro prn CP and repeat EKG for CP Will hold on resting echo at this time as pt is COVID positive Cardiology consult (2) COVID-19: Recently increased SOB, fatigue, body aches, weakness, dizziness past 2 weeks. Outpatient 09/09/20 negative Covid test and negative CXR and was treated with prednisone. +COVID 19 exposure - caregiver tested positive 09/07/20. 1st dose COVID 19 vaccine on 09/16/20 Today CXR: no acute infiltrate Not requiring oxygen at this time. Sats 98% on room air Albuterol inhaler prn (3) Paroxysmal atrial fibrillation: On Eliquis Continue Eliquis, metoprolol tartrate (4) Sick sinus syndrome: S/P pacemaker Recent outpatient pacemaker demonstrated atrial fibrillation/flutter (5) Asthma: Continue home inhalers Albuterol prn (6) HTN (hypertension): Pt noted elevated BP in ER. Is due for night doses of medications losartan, nifedipine, metoprolol tartrate, clonidine (7) Diabetes mellitus, type II: A1c: 9.9 on 07/30/20 Hold home Levemir, Ozempic Basal bolus insulin per protocol (8) CKD (chronic kidney disease) stage 3, GFR 30-59 ml/min: Cr: 1.1. Baseline Cr: 1.2 Monitor renal functions, avoid nephrotoxic agents as possible (9) HLD (hyperlipidemia): Continue statin DVT Prophylaxis -On Eliquis Full Code as per discussion with pt Follows with Dr Quintanilla for routine care Pt was seen and care coordinated with Dr Elizalde. See addendum History of Present Illness Chief Complaint: CP Primary Care Provider: Phyllis Quintanilla MD Pt is 74 y/o F with PMH PAF on Eliquis, sick sinus syndrome s/p pacemaker, HTN, dyslipidemia, asthma, insulin dependent DM II presented to ER with c/o CP. Pt referred from cardiology clinic today. Pt with CP for 3-4 months described as chest pressure. Unsure if nitro SL relieves discomfort. She reports becoming aware that her caregiver tested positive for COVID-19 on 09/07/20. On 09/08/20 pt reports increased fatigue, increased SOB, increased chest tightness and body aches. Pt SOB with walking and talking. Pt had negative COVID-19 test on 09/09/20. She was prescribed prednisone. She has been using albuterol without much noted relief. Last week feeling dizzy and reports almost falling down. She also fells she has been close to falling secondary to weakness. uses 2 pillows at baseline. Denies known fever/chills, diaphoresis, N/V/D/C, JUSTIN, vision changes, neck pain, increased orthopnea, palpitations, cough, sore throat, choking, otalgia, rhinorrhea, abdominal pain, paresthesias, increased extremity edema, rashes, urinary symptoms. Allergies Allergy/AdvReac Type Severity Reaction Status Date / Time No Known Allergies Allergy Mild NONE Unverified 09/23/20 17:24 Home Medications Medication Instructions Recorded Confirmed Type albuterol sulfate 2 puff INHALATION QID PRN 01/15/20 09/23/20 History benzonatate 100 mg PO BID PRN 01/15/20 09/23/20 History clonidine HCl 0.1 mg PO BID 01/15/20 09/23/20 History meclizine 25 mg PO TID PRN 01/15/20 09/23/20 History nifedipine 90 mg PO BID 01/15/20 09/23/20 History omeprazole 20 mg PO BID PRN 01/15/20 09/23/20 History pravastatin 80 mg PO QPM 01/15/20 09/23/20 History sertraline 100 mg PO QAM 01/15/20 09/23/20 History apixaban [Eliquis] 5 mg PO BID 09/23/20 09/23/20 History bumetanide 1 mg PO DAILY 09/23/20 09/23/20 History diphenhydramine-acetaminophen 2 tab PO HS PRN 09/23/20 09/23/20 History [Tylenol PM Extra Strength] epinephrine 0.3 mg IM UD PRN 09/23/20 09/23/20 History eljpvxwuqlb-[id number]-lhvgwmgu 1 ea INHALATION DAILY 09/23/20 09/23/20 History [Trelegy Ellipta] gabapentin 100 mg PO TID 09/23/20 09/23/20 History guaifenesin [Mucinex] 600 mg PO BID 09/23/20 09/23/20 History hydrocodone-acetaminophen 1 tab PO Q8 PRN 09/23/20 09/23/20 History insulin detemir U-100 [Levemir 30 unit SUBCUT HS 09/23/20 09/23/20 History U-100 Insulin] ipratropium-albuterol 3 ml INHALATION Q6 PRN 09/23/20 09/23/20 History losartan [Cozaar] 50 mg PO DAILY 09/23/20 09/23/20 History metoprolol tartrate 12.5 mg PO BID 09/23/20 09/23/20 History nitroglycerin [Nitrostat] 0.4 mg SUBLINGUAL UD 09/23/20 09/23/20 History semaglutide [Ozempic] 0.25 mg SUBCUT UD 09/23/20 09/23/20 History Past Med/Surg History Medical History (Updated 09/23/20 @ 17:18 by Radu Lai MD) Asthma CKD (chronic kidney disease) stage 3, GFR 30-59 ml/min Depression Diabetes mellitus Diabetes mellitus, type II Diabetic neuropathy Diabetic retinopathy GERD (gastroesophageal reflux disease) History of PSVT (paroxysmal supraventricular tachycardia) HLD (hyperlipidemia) HTN (hypertension) Osteoporosis Paroxysmal atrial fibrillation Sick sinus syndrome Surgical History History of History of cholecystectomy History of colonoscopy History of esophagogastroduodenoscopy (EGD) History of sinus surgery S/P placement of cardiac pacemaker Family History Father Coronary heart disease, Onset Age: 62 Mother Stroke, Onset Age: 77 Social History Smoking Status: Never smoker Second Hand Exposure: No; Do You Dip or Chew Tobacco: No; Tobacco Cessation Education Requested by Patient: No Hx Alcohol Use: No Hx Substance Use: No Preferred Language: Hungarian Communication Ability: Effective Embossing Machine Tender Required: No Beliefs That Will Affect Care: None marital status: / Current Living Situation: Alone Other Information That Helps Us Care for You: No Feels Safe at Home: Yes Safety Concerns: Feels Safe At This Time Assistive Devices: Cane Review of Systems Review of Systems: All systems reviewed & are unremarkable except as noted in HPI & below Results & Data Results & Data ([facility]) Vital Signs (Past 12 Hours) Vital Signs Temp Pulse Resp BP Pulse Ox 09/23/20 16:01 60 16 209/96 H 99 09/23/20 15:30 60 19 190/115 H 99 09/23/20 15:23 61 17 182/99 H 99 09/23/20 14:33 36.7 C 82 16 161/101 H 98 Laboratory Results Short CBC 09/23/20 Range/Units 14:25 WBC 9.54 (4.8-10.8) K/uL Hgb 13.3 (12.0-16.0) g/dL Hct 38.8 (37-47) % Plt Count 285 (130-400) K/uL BMP 09/23/20 14:25 Sodium 137 Potassium 4.4 Chloride 104 Carbon Dioxide 28 BUN 37 H Creatinine 1.12 Glucose 161 H Calcium 9.6 Cardiac Enzymes 09/23/20 Range/Units 14:25 Troponin I < 0.015 (0-0.045) ng/ml Liver Function 09/23/20 Range/Units 14:25 Total Bilirubin 0.4 (0.2-1) mg/dl AST 16 (15-37) U/L ALT 30 (12-78) U/L Alkaline Phosphatase 104 (45-117) U/L Albumin 4.2 (3.4-5.0) gm/dl Diagnostic Findings Chest X-Ray 09/23/20 14:16 XR chest 1V portable CLINICAL HISTORY: Atypical chest pain COMPARISON STUDY: 01/09/2020 FINDINGS: The cardiac and mediastinal contours remain stable. There is mild aortic tortuosity/ectasia. There is a left subclavian dual-chamber central venous pacemaker. There is no failure. There is no focal pulmonary consolidation. There are no pleural effusions.[ IMPRESSION: No active disease in the chest. ACT 112: Negative or not required by law. Electronically signed by: Garret Gallagher M.D. 09/23/2020 2:36 PM ECG Findings: + paced rhythm Additional Comments: Atrial-paced rhythm with prolonged AV conduction Nonspecific T wave abnormality Abnormal ECG When compared with ECG of 17-JAN-2020 06:26, Electronic atrial pacemaker has replaced Sinus rhythm Confirmed by Kade Grider ([id number]) on 09/23/2020 4:43:20 PM
--- NOTE | 2020-09-23 17:18 | Emergency Department Note ---
Impression & Plan Chest pain, COVID-19 ED Provider Note INFORMANT: Patient ED PROVIDER(S): Radu Lai MD CHIEF COMPLAINT: Chest pain PLAN: Disposition: Admitted Condition: Good Outpatient prescription management: none Referral: None MEDICAL DECISION MAKING: Patient presented due to chest pain. An IV was established. Her CBC, chemistry panel, troponin and LFTs were unremarkable. Chest x-ray was unremarkable as well. The patient's Covid test performed for hospital screening purposes was positive. She does have a positive sick contact. The patient was placed in isolation. Consultation was made with the hospitalist service. Patient will be admitted for further management Triage Nursing notes reviewed and agree them. Vital Signs: reviewed and remarkable for no significant abnormalities Differential diagnosis: Cardiac ischemia, aortic dissection, pulmonary embolism, pneumothorax, pneumonia, pericarditis, myocarditis, esophageal rupture, GERD, cholecystitis, pancreatitis, musculoskeletal, as well as other pathologies. Diagnostics interpreted by me: ECG: Twelve-lead ECG reveals an atrial paced rhythm at 82 bpm. Prolonged AV conduction. Nonspecific ST. No ST elevation. Cardiac Monitoring: Cardiac monitoring ordered by me: The patient was placed on continuous cardiac monitoring and observed. It revealed a paced rhythm at 70 bpm. Imaging studies: Chest x-ray. Findings: A chest x-ray was performed and revealed no pneumothorax, effusion, infiltrate, pulmonary edema, free air under the diaphragm, or wide mediastinum. Impression: No acute disease. HPI: The patient is a 74 year old female who presents to the Emergency Room with complaints of chest pain. This started intermittently weeks ago and is worsening. The patient also notes the following associated symptoms, mild sh ortness of breath and fatigue. The patient has used nitro unsuccessfully relieving factors. Current pain is rated as 0/10. Patient was seen at the [facility] cardiology clinic and referred to the ER. Incidentally patient also notes that her caregiver was tested positive for Covid 2 weeks ago. The patient did have a negative Covid test after that diagnosis was made. Pt denies LOC, headache, fevers, chills, diaphoresis, visual changes, neck pain, nausea, vomiting, abdominal pain, back pain, melena, hematochezia, urinary symptoms, numbness, weakness, lymphadenopathy, rash, or other complaints. ROS: See above HPI for pertinent positives & negatives. A total of 10 systems reviewed and were otherwise negative. PAST MEDICAL HISTORY:See Below , CAD, hypertension, diabetes PAST SURGICAL HISTORY:See Below, FAMILY HISTORY:See Below SOCIAL HISTORY:See Below, non-smoker HOME MEDICATIONS:See Below ALLERGIES:See Below VITALS:See Below PHYSICAL EXAMINATION: GENERAL: Awake, alert, well-appearing, in no distress HENT: Normocephalic, atraumatic. Oropharynx unremarkable. EYES: Normal conjunctiva. Sclera non-icteric. NECK: Inspection normal. Non-tender. Supple. No nuchal rigidity. FROM. No masses. RESPIRATORY: Clear to auscultation. No wheezes. No rales. Normal respiratory effort. CARDIAC: Normal rate. Normal rhythm. No murmurs. No rubs. Extremities warm and well perfused. Pulses equal. No JVD. GI: Soft, non-distended. No tenderness to palpation. No rebound or guarding. No masses. RECTAL: Deferred. MUSCULOSKELETAL: Atraumatic. Chest examination reveals no tenderness. The back is symmetrical on inspection without obvious abnormality. There is no CVA tenderness to palpation. No joint edema. LOWER EXTREMITIES: Calves are equal size bilaterally and non-tender. No edema. No discoloration. NEURO: Normal sensorium. No sensory or motor deficits noted. SKIN: No rash or jaundice noted. Rdau Lai MD Past Med/Surg History Medical History (Updated 09/23/20 @ 17:18 by Radu Lai MD) Asthma CKD (chronic kidney disease) stage 3, GFR 30-59 ml/min Depression Diabetes mellitus Diabetes mellitus, type II Diabetic neuropathy Diabetic retinopathy GERD (gastroesophageal reflux disease) History of PSVT (paroxysmal supraventricular tachycardia) HLD (hyperlipidemia) HTN (hypertension) Osteoporosis Paroxysmal atrial fibrillation Sick sinus syndrome Surgical History History of History of cholecystectomy History of colonoscopy History of esophagogastroduodenoscopy (EGD) History of sinus surgery S/P placement of cardiac pacemaker Family History Father Coronary heart disease, Onset Age: 62 Mother Stroke, Onset Age: 77 Social History Smoking Status: Never smoker Hx Alcohol Use: No Hx Substance Use: No Preferred Language: Norwegian Communication Ability: Effective Beliefs That Will Affect Care: None marital status: / Current Living Situation: Alone Feels Safe at Home: Yes Assistive Devices: Cane Allergies Allergies Allergy/AdvReac Type Severity Reaction Status Date / Time No Known Allergies Allergy Mild NONE Unverified 09/23/20 17:24 Home Meds Home Medications Medication Instructions Recorded Confirmed albuterol sulfate 2 puff INHALATION QID PRN 01/15/20 09/23/20 benzonatate 100 mg PO BID PRN 01/15/20 09/23/20 clonidine HCl 0.1 mg PO BID 01/15/20 09/23/20 meclizine 25 mg PO TID PRN 01/15/20 09/23/20 nifedipine 90 mg PO BID 01/15/20 09/23/20 omeprazole 20 mg PO BID PRN 01/15/20 09/23/20 pravastatin 80 mg PO QPM 01/15/20 09/23/20 sertraline 100 mg PO QAM 01/15/20 09/23/20 apixaban [Eliquis] 5 mg PO BID 09/23/20 09/23/20 bumetanide 1 mg PO DAILY 09/23/20 09/23/20 diphenhydramine-acetaminophen 2 tab PO HS PRN 09/23/20 09/23/20 [Tylenol PM Extra Strength] epinephrine 0.3 mg IM UD PRN 09/23/20 09/23/20 [id number] 1 ea INHALATION DAILY 09/23/20 09/23/20 [Trelegy Ellipta] gabapentin 100 mg PO TID 09/23/20 09/23/20 guaifenesin [Mucinex] 600 mg PO BID 09/23/20 09/23/20 hydrocodone-acetaminophen 1 tab PO Q8 PRN 09/23/20 09/23/20 insulin detemir U-100 [Levemir 30 unit SUBCUT HS 09/23/20 09/23/20 U-100 Insulin] ipratropium-albuterol 3 ml INHALATION Q6 PRN 09/23/20 09/23/20 losartan [Cozaar] 50 mg PO DAILY 09/23/20 09/23/20 metoprolol tartrate 12.5 mg PO BID 09/23/20 09/23/20 nitroglycerin [Nitrostat] 0.4 mg SUBLINGUAL UD 09/23/20 09/23/20 semaglutide [Ozempic] 0.25 mg SUBCUT UD 09/23/20 09/23/20 Results & Data (ED) Vital Signs Vital Signs - 24 hr 09/23/20 14:33 09/23/20 14:39 09/23/20 15:23 Temperature 36.7 C Temperature Source Oral Pulse Rate 82 61 Pulse Rate from SpO2 Sensor 61 Pulse Rhythm Regular Pulse Strength Normal Respiratory Rate 16 17 Respiratory Effort / Characteristics Non-Labored Spontaneous Non-Labored Spontaneous Respiratory Depth Normal Normal Blood Pressure 161/101 H 182/99 H Blood Pressure Mean 121 126 Pulse Oximetry 98 99 Oxygen Delivery Method Room Air Room Air Sepsis Recent Fever Within 48 Hours No Sepsis New/Unexplained Change in Mental Status No Sepsis Action Taken by Nursing No Action Required 09/23/20 15:30 09/23/20 16:01 09/23/20 17:32 Temperature Temperature Source Pulse Rate 60 60 65 Pulse Rate from SpO2 Sensor 60 60 65 Pulse Rhythm Pulse Strength Respiratory Rate 19 16 19 Respiratory Effort / Characteristics Respiratory Depth Blood Pressure 190/115 H 209/96 H 209/120 H Blood Pressure Mean 140 133 149 Pulse Oximetry 99 99 98 Oxygen Delivery Method Sepsis Recent Fever Within 48 Hours Sepsis New/Unexplained Change in Mental Status Sepsis Action Taken by Nursing 09/23/20 17:52 Temperature Temperature Source Pulse Rate 70 Pulse Rate from SpO2 Sensor 70 Pulse Rhythm Pulse Strength Respiratory Rate 21 Respiratory Effort / Characteristics Respiratory Depth Blood Pressure 159/84 H Blood Pressure Mean 109 Pulse Oximetry 100 Oxygen Delivery Method Sepsis Recent Fever Within 48 Hours Sepsis New/Unexplained Change in Mental Status Sepsis Action Taken by Nursing Laboratory Data Result diagrams: 09/23/20 14:25 09/23/20 14:25 Lab Results 09/23/20 09/23/20 09/23/20 Range/Units 14:25 14:25 15:00 WBC 9.54 (4.8-10.8) K/uL RBC 4.78 (4.2-5.4) M/uL Hgb 13.3 (12.0-16.0) g/dL Hct 38.8 (37-47) % MCV 81.2 (80-100) fL MCH 27.8 (25-34) pg MCHC 34.3 (32-36) g/dL RDW Std Deviation 43.4 (36.4-46.3) fL RDW Coeff of Keyur 14.6 H (11.5-14.5) % Plt Count 285 (130-400) K/uL MPV 10.5 H (7.4-10.4) fL Immature Gran % (Auto) 0.3 % Neut % (Auto) 48.5 % Lymph % (Auto) 45.6 % Canyon % (Auto) 4.6 % Eos % (Auto) 0.9 % Baso % (Auto) 0.1 % Neut # (Auto) 4.62 (1.4-6.5) K/uL Lymph # (Auto) 4.35 H (1.2-3.4) K/uL Canyon # (Auto) 0.44 (0.11-0.59) K/uL Eos # (Auto) 0.09 (0-0.5) K/uL Baso # (Auto) 0.01 (0-0.2) K/uL Immature Gran # (Auto) 0.03 H (0.00-0.02) K/uL Sodium 137 (136-145) mmol/L Potassium 4.4 (3.5-5.1) mmol/L Chloride 104 (98-107) mmol/L Carbon Dioxide 28 (21-32) mmol/L Anion Gap 5.0 (3-11) BUN 37 H (7-18) mg/dl Creatinine 1.12 (0.6-1.2) mg/dl Est Cr Clr Drug Dosing 53.6 ml/min Est GFR ( Amer) 55.6 Est GFR (Non-Af Amer) 48.0 BUN/Creatinine Ratio 32.7 H (10-20) Glucose 161 H (70-99) mg/dl Calcium 9.6 (8.5-10.1) mg/dl Total Bilirubin 0.4 (0.2-1) mg/dl AST 16 (15-37) U/L ALT 30 (12-78) U/L Alkaline Phosphatase 104 (45-117) U/L Troponin I < 0.015 (0-0.045) ng/ml Total Protein 8.9 H (6.4-8.2) gm/dl Albumin 4.2 (3.4-5.0) gm/dl Globulin 4.7 H (2.5-4.0) gm/dl Albumin/Globulin Ratio 0.9 (0.9-2) Lipase 223 (73-393) U/L COVID-19 Eval Order CovFluRsv at [facility] SARS-CoV-2 (PCR) (Negative) Influenza Type A (PCR) (Neg) Influenza Type B (PCR) (Neg) RSV (RT-PCR) (Neg) 09/23/20 Range/Units 15:00 WBC (4.8-10.8) K/uL RBC (4.2-5.4) M/uL Hgb (12.0-16.0) g/dL Hct (37-47) % MCV (80-100) fL MCH (25-34) pg MCHC (32-36) g/dL RDW Std Deviation (36.4-46.3) fL RDW Coeff of Keyur (11.5-14.5) % Plt Count (130-400) K/uL MPV (7.4-10.4) fL Immature Gran % (Auto) % Neut % (Auto) % Lymph % (Auto) % Canyon % (Auto) % Eos % (Auto) % Baso % (Auto) % Neut # (Auto) (1.4-6.5) K/uL Lymph # (Auto) (1.2-3.4) K/uL Canyon # (Auto) (0.11-0.59) K/uL Eos # (Auto) (0-0.5) K/uL Baso # (Auto) (0-0.2) K/uL Immature Gran # (Auto) (0.00-0.02) K/uL Sodium (136-145) mmol/L Potassium (3.5-5.1) mmol/L Chloride (98-107) mmol/L Carbon Dioxide (21-32) mmol/L Anion Gap (3-11) BUN (7-18) mg/dl Creatinine (0.6-1.2) mg/dl Est Cr Clr Drug Dosing ml/min Est GFR ( Amer) Est GFR (Non-Af Amer) BUN/Creatinine Ratio (10-20) Glucose (70-99) mg/dl Calcium (8.5-10.1) mg/dl Total Bilirubin (0.2-1) mg/dl AST (15-37) U/L ALT (12-78) U/L Alkaline Phosphatase (45-117) U/L Troponin I (0-0.045) ng/ml Total Protein (6.4-8.2) gm/dl Albumin (3.4-5.0) gm/dl Globulin (2.5-4.0) gm/dl Albumin/Globulin Ratio (0.9-2) Lipase (73-393) U/L COVID-19 Eval Order SARS-CoV-2 (PCR) POSITIVE A* (Negative) Influenza Type A (PCR) Negative (Neg) Influenza Type B (PCR) Negative (Neg) RSV (RT-PCR) Negative (Neg) Imaging Data Radiologist's Impression: Chest X-Ray 09/23/20 14:16 XR chest 1V portable CLINICAL HISTORY: Atypical chest pain COMPARISON STUDY: 01/09/2020 FINDINGS: The cardiac and mediastinal contours remain stable. There is mild aortic tortuosity/ectasia. There is a left subclavian dual-chamber central venous pacemaker. There is no failure. There is no focal pulmonary consolidation. There are no pleural effusions.[ IMPRESSION: No active disease in the chest. ACT 112: Negative or not required by law. Electronically signed by: Garret Gallagher M.D. 09/23/2020 2:36 PM Discharge Plan Visit Data Chief Complaint: Chest Pain ED Provider: Radu Lai Discharge Problem: Chest pain, COVID-19 Forms Stand Alone Forms: My [facility] Prescriptions Prescriptions: No Action clonidine HCl 0.1 mg Tablet 0.1 mg PO BID RF: 0 nifedipine 90 mg Tablet Extended Release 90 mg PO BID RF: 0 sertraline 100 mg Tablet 100 mg PO QAM RF: 0 pravastatin 80 mg Tablet 80 mg PO QPM RF: 0 meclizine 25 mg Tablet 25 mg PO TID PRN (Reason: Dizziness) RF: 0 omeprazole 20 mg Capsule,Delayed Release(Dr/Ec) 20 mg PO BID PRN (Reason: Gi Upset) RF: 0 albuterol sulfate 90 mcg/actuation Hfa Aerosol Inhaler 2 puff INHALATION QID PRN (Reason: SOB) RF: 0 benzonatate 100 mg capsule 100 mg PO BID PRN (Reason: Cough) RF: 0 losartan [Cozaar] 50 mg tablet 50 mg PO DAILY RF: 0 ipratropium-albuterol 0.5 mg-3 mg(2.5 mg base)/3 mL solution for nebulization 3 ml INHALATION Q6 PRN (Reason: Shortness Of Breath Or Wheezing) RF: 0 hydrocodone-acetaminophen 5-325 mg tablet 1 tab PO Q8 PRN (Reason: Pain) RF: 0 nitroglycerin [Nitrostat] 0.4 mg tablet, sublingual 0.4 mg sublingual UD RF: 0 bumetanide 1 mg tablet 1 mg PO DAILY RF: 0 epinephrine 0.3 mg/0.3 mL auto-injector 0.3 mg IM UD PRN (Reason: SEVERE ALLERGIC REACTION) RF: 0 diphenhydramine-acetaminophen [Tylenol PM Extra Strength] 25-500 mg Tablet 2 tab PO HS PRN (Reason: Sleep) RF: 0 metoprolol tartrate 25 mg tablet 12.5 mg PO BID RF: 0 Levemir U-100 Insulin 100 unit/mL solution 30 unit SUBCUT HS RF: 0 Eliquis 5 mg tablet 5 mg PO BID RF: 0 guaifenesin [Mucinex] 600 mg Tablet Extended Release 12hr 600 mg PO BID RF: 0 Trelegy Ellipta 100-62.5-25 mcg blister with device 1 ea INHALATION DAILY RF: 0 Ozempic 0.25 mg or 0.5 mg(2 mg/1.5 mL) pen injector 0.25 mg SUBCUT UD RF: 0 gabapentin 100 mg capsule 100 mg PO TID RF: 0 Referrals Referrals: Phyllis Quintanilla MD [Primary Care Provider] -
[2020-09-23] MEDS ORDERED: ASPIRIN 81 MG CHEW PO STA ×2 (17:43→21:44)
[2020-09-23] MEDS ORDERED: NIFEdipine EXTENDED REL 30 MG TABCR PO STA (17:55)
[2020-09-23] MEDS ORDERED: cloNIDine HCL 0.1 MG TAB PO ONE (17:55)
[2020-09-23] MEDS ORDERED: POLYETHYLENE (MIRALAX) 17 GM PACK PO PRN (18:42)
[2020-09-23] MEDS ORDERED: GLUCOSE 10 TABS/TUBE PO PRN (18:42)
[2020-09-23] MEDS ORDERED: BENZONATATE 100 MG CAPSULE PO PRN (18:42)
[2020-09-23] MEDS ORDERED: GLUCAGON FOR INJ 1 MG VIAL SQ PRN (18:42)
[2020-09-23] MEDS ORDERED: CARBOHYDRATES FOR HYPOGLYCEMIA PO PRN (18:42)
[2020-09-23] MEDS ORDERED: DEXTROSE 50% 50 ML SYRINGE IV PRN (18:42)
[2020-09-23] MEDS ORDERED: ALBUTEROL HFA 8 GM INHALER INH PRN (18:42)
[2020-09-23] MEDS ORDERED: NITROGLYCERIN SL 0.4 MG/TAB TAB SL PRN (18:42)
[2020-09-23] MEDS ORDERED: GLUCOSE 40% GEL 15 GM TUBE PO PRN (18:42)
[2020-09-23] MEDS: METOPROLOL TARTRATE 25 MG TAB PO SCH (20:00)
[2020-09-23] MEDS: APIXABAN 5 MG TABLET PO SCH (20:00)
[2020-09-23] MEDS: PRAVASTATIN SOD 40 MG TAB PO SCH (20:01)
[2020-09-23] MEDS: GABAPENTIN 100 MG CAP PO SCH (20:01)
[2020-09-23] MEDS ORDERED: ASPIRIN CHEW 324 MG ONE (20:11)
[2020-09-23] MEDS: HYDROCODONE/ACETAMOPHEN 5/325MG TAB PO PRN (20:13)
[2020-09-23] MEDS: INSULIN GLARGINE SOLOSTAR 100 UNITS/ML 3 ML PEN SC SCH (20:19)
[2020-09-23] MEDS: INSULIN ASPART 100 UNITS/ML 3 ML PEN SC SCH (20:20)
[2020-09-23] MEDS ORDERED: Nursing to Pharmacy Communication SCH (21:45)
[2020-09-24] MEDS: ACETAMINOPHEN 325 MG TAB PO PRN ×2 (01:53→09:10)
[2020-09-24 02:14] LABS: Hematocrit (blood only) 36.7 % (37-47); Hemoglobin 12.2 g/dL (12.0-16.0); Mean Corpuscular Hemoglobin 27.2 pg (25-34); Mean Corpuscular Hgb Conc 33.2 g/dL (32-36); Mean Corpuscular Volume 81.9 fL (80-100); Platelet Count 248 K/uL (130-400); RDW Coefficient of Variation 14.7 % (11.5-14.5); RDW Standard Deviation 44.2 fL (36.4-46.3); Red Blood Count 4.48 M/uL (4.2-5.4); White Blood Count 11.06 K/uL (4.8-10.8)
[2020-09-24 02:29] LABS: BUN Creatinine Ratio 27.6 (10-20); Blood Urea Nitrogen 34 mg/dl (7-18); Calcium 8.8 mg/dl (8.5-10.1); Carbon Dioxide 32 mmol/L (21-32); Chloride 103 mmol/L (98-107); Creatinine Clr Calc Pharmacy 47.9 ml/min; Est GFR (African American) 50.2; Est GFR (Non-African American) 43.3; Glucose 157 mg/dl (70-99); Potassium 4.4 mmol/L (3.5-5.1); Sodium 136 mmol/L (136-145)
[2020-09-24 02:34] LABS: Chol HDL Ratio 4; Cholesterol 181 mg/dl (0-200); HDL Cholesterol 47 mg/dl; Triglycerides 487 mg/dl (0-150); Troponin I < 0.015 ng/ml (0-0.045)
[2020-09-24] MEDS ORDERED: cloNIDine HCL 0.1 MG TAB PO SCH (09:00)
[2020-09-24] MEDS ORDERED: NIFEdipine EXTENDED REL 30 MG TABCR PO SCH (09:00)
[2020-09-24] MEDS: BUMETANIDE 1 MG TAB PO SCH (09:10)
[2020-09-24] MEDS: FLUTICASONE FUROATE 100MCG 14 PUFFS/INHALER INH SCH (09:11)
[2020-09-24] MEDS: UMECLIDINIUM/VILANTEROL 62.5/25MCG 7 PUFFS/INHALER INH SCH (09:11)
[2020-09-24] MEDS: GABAPENTIN 100 MG CAP PO SCH ×3 (09:12→20:58)
[2020-09-24] MEDS: LOSARTAN POTASSIUM 50 MG TAB PO SCH (09:12)
[2020-09-24] MEDS: METOPROLOL TARTRATE 25 MG TAB PO SCH ×2 (09:13→20:57)
[2020-09-24] MEDS: SERTRALINE HCL 100 MG TABLET PO SCH (09:13)
[2020-09-24] MEDS: APIXABAN 5 MG TABLET PO SCH ×2 (09:14→20:58)
[2020-09-24] MEDS: NIFEdipine EXTENDED REL 30 MG TABCR PO SCH ×2 (09:14→20:57)
[2020-09-24] MEDS: INSULIN GLARGINE SOLOSTAR 100 UNITS/ML 3 ML PEN SC SCH ×2 (09:21→21:04)
[2020-09-24] MEDS: INSULIN ASPART 100 UNITS/ML 3 ML PEN SC SCH ×4 (09:22→21:04)
[2020-09-24] MEDS: cloNIDine HCL 0.1 MG TAB PO SCH ×2 (09:35→21:01)
--- NOTE | 2020-09-24 11:27 | Electrocardiogram Report ---
Test Reason : Blood Pressure : / mmHG Vent. Rate : 064 BPM Atrial Rate : 064 BPM P-R Int : 234 ms QRS Dur : 090 ms QT Int : 432 ms P-R-T Axes : 034 006 018 degrees QTc Int : 445 ms Atrial-paced rhythm with prolonged AV conduction Abnormal ECG When compared with ECG of 23-SEP-2020 14:15, No significant change was found Confirmed by Kade Grider ([id number]) on 09/24/2020 11:27:35 AM Referred By: REFERRED SELF Confirmed By:Kade Grider
[2020-09-24] MEDS ORDERED: predniSONE 20 MG TAB PO STA (18:11)
--- NOTE | 2020-09-24 18:48 | Hospitalist Progress Note ---
Date of Service September 24, 2020 Assessment & Plan (1) Chest pain: Pt is 74 y/o F with PMH PAF on Eliquis, sick sinus syndrome s/p pacemaker, HTN, dyslipidemia, asthma, insulin dependent DM II presented to ER with c/o ongoing chest pressure for past 3-4 months. Recently noted increased SOB. Pt r eferred from cardiology clinic today. Pt with CP for 3-4 months described as chest pressure. Possible related to COVID 19 Troponin x 3 negative EKG showed no ischemic changes Continue statin and beta kenney Last echo [facility] 12/2019: EF 60-65%, Moderate aortic valve sclerosis without stenosis. Mild tricuspid regurgitation with evidence of severe pulmonary hypertension. Last Lexiscan nuclear stress report summary 11/2019: Myocardial perfusion imaging normal. No regional wall motion abnormalities. Case discussed with cardiology and think her symptoms might be related to COVID 19. doubt it is cardiac etiology as per cardio Since pt continues to have chest pain, will consider to get an ECHO Will try low dose steroid to see if that will help with the pain (2) COVID-19: Recently increased SOB, fatigue, body aches, weakness, dizziness past 2 weeks. Outpatient 09/09/20 negative Covid test and negative CXR and was treated with prednisone. +COVID 19 exposure - caregiver tested positive 09/07/20. 1st dose COVID 19 vaccine on 09/16/20 CXR showed no acute infiltrate Not requiring oxygen at this time. Sats 98% on room air Albuterol inhaler prn (3) Paroxysmal atrial fibrillation: On Eliquis Continue Eliquis, metoprolol tartrate (4) Sick sinus syndrome: S/P pacemaker Recent outpatient pacemaker demonstrated atrial fibrillation/flutter (5) Asthma: Continue home inhalers Albuterol prn (6) HTN (hypertension): Pt noted elevated BP in ER. Is due for night doses of medications losartan, nifedipine, metoprolol tartrate, clonidine (7) Diabetes mellitus, type II: A1c: 9.9 on 07/30/20 Hold home Levemir, Ozempic Basal bolus insulin per protocol (8) CKD (chronic kidney disease) stage 3, GFR 30-59 ml/min: Cr: 1.1. Baseline Cr: 1.2 Monitor renal functions, avoid nephrotoxic agents as possible (9) HLD (hyperlipidemia): Continue statin DVT Prophylaxis -On Eliquis Full Code as per discussion with pt Follows with Dr Quintanilla for routine care Admission and Anticipated Discharge Date Admission Date: September 23, 2020 Subjective Pt was seen and examined for follow up of chest pressure Lying in bed with no acute distress Pt continues to have continue chest pressure She said that she feels someone sits on her chest She said that she has been having the chest pressure for months She denies any cough or shortness of breath She said that when she takes a deep breath that she feels some tenderness across her lower abdomen Review of Systems Review of Systems: All systems reviewed & are unremarkable except as noted in Subjective Physical Exam Physical Exam: General- No acute distress Head- atraumatic Eyes- PERRL, EOMI, ENT- oropharynx clear Neck- supple, no JVD Lungs- clear to auscultation Heart- regular rhythm; no murmur Abdomen- normal bowel sounds, soft, nontender Extremities- no calf tenderness Neuro- alert, oriented x 3; PERRL, EOMI; no facial palsy; no dysarthria Skin- warm & dry Results & Data Results & Data ([facility]) Vital Signs (Past 12 Hours) Vital Signs Temp Pulse Resp BP Pulse Ox 09/24/20 15:36 37.3 C 64 18 143/82 H 96 09/24/20 11:25 37.1 C 68 18 108/64 98 09/24/20 07:53 36.6 C 86 20 153/76 H 96
[2020-09-24] MEDS: PRAVASTATIN SOD 40 MG TAB PO SCH (20:57)
[2020-09-24] MEDS: HYDROCODONE/ACETAMOPHEN 5/325MG TAB PO PRN (20:58)
[2020-09-25] MEDS: INSULIN ASPART 100 UNITS/ML 3 ML PEN SC SCH ×4 (08:04→21:08)
[2020-09-25] MEDS: APIXABAN 5 MG TABLET PO SCH ×2 (08:05→19:45)
[2020-09-25] MEDS: GABAPENTIN 100 MG CAP PO SCH ×3 (08:06→19:45)
[2020-09-25] MEDS: BUMETANIDE 1 MG TAB PO SCH (08:06)
[2020-09-25] MEDS: METOPROLOL TARTRATE 25 MG TAB PO SCH ×2 (08:07→19:47)
[2020-09-25] MEDS: LOSARTAN POTASSIUM 50 MG TAB PO SCH (08:10)
[2020-09-25] MEDS: NIFEdipine EXTENDED REL 30 MG TABCR PO SCH ×2 (08:10→19:48)
[2020-09-25] MEDS: SERTRALINE HCL 100 MG TABLET PO SCH (08:11)
[2020-09-25] MEDS: FLUTICASONE FUROATE 100MCG 14 PUFFS/INHALER INH SCH (08:12)
[2020-09-25] MEDS: UMECLIDINIUM/VILANTEROL 62.5/25MCG 7 PUFFS/INHALER INH SCH (08:12)
[2020-09-25] MEDS: cloNIDine HCL 0.1 MG TAB PO SCH ×2 (08:15→19:52)
[2020-09-25] MEDS: INSULIN GLARGINE SOLOSTAR 100 UNITS/ML 3 ML PEN SC SCH ×2 (09:05→21:08)
[2020-09-25 11:47] LABS: BUN Creatinine Ratio 28.2 (10-20); Calcium 9.1 mg/dl (8.5-10.1); Est GFR (African American) 50.2; Est GFR (Non-African American) 43.3; Potassium 4.1 mmol/L (3.5-5.1)
--- NOTE | 2020-09-25 12:00 | Cardiology Consultation ---
Date of Consultation September 25, 2020 Assessment & Plan (1) Chest pain: (2) COVID-19: (3) S/P placement of cardiac pacemaker: (4) Sick sinus syndrome: (5) Paroxysmal atrial fibrillation: (6) Diabetes mellitus, type II: The patient has no findings that would suggest that her chest pain is due to ischemic heart disease. Her cardiac markers have been negative. EKG shows no acute changes. Echocardiogram completed today shows no wall motion abnormalities or other findings that would suggest ischemic heart disease. I would continue to manage her as she had been doing. Agree with a round of steroids may be beneficial in treating chest pain if it is related to pneumonitis or inflammation. History of Present Illness Attending Physician: Marilyn Elizalde MD History of Present Illness This is a 74-year-old female who was seen at our clinic and referred urgently to the emergency department. She had a near syncopal episode at the end of August and just has not been feeling well with tiredness, fatigue and shortness of breath. She was also experiencing atypical ongoing almost continuous chest pain. After referral to the emergency department she tested positive for Covid 19 and was admitted to the Covid unit for further treatment. Cardiac markers were negative. EKG showed in a paced rhythm with no acute changes. As per our protocol, this is a chart review consultation. Information is taken from the medical record, office records as well as discussion with the hospitalist. Past medical history: 1. Sick sinus syndrome, junctional bradycardia with heart rates in the 30s- reversed with IV glucagon, unsuccessful. S/p [employer] Dual chamber permanent pacemaker 12/[address] Jiang 2. Chronic dyspnea on exertion 3. Atypical chest discomfort with negative pharmacologic stress test 2019 4. Hypertension 5. Dyslipidemia, LDL goal less than 100 6. Obesity with suspected LIZ 7. Chronic orthopnea, 2 pillow 8. Diabetes type 2 9. Paroxysmal atrial fibrillation, [id number] score of 5 (age 1, female, hypertension, diabetes), on metoprolol and Eliquis Allergies Allergy/AdvReac Type Severity Reaction Status Date / Time No Known Allergies Allergy Mild NONE Unverified 09/23/20 17:24 Home Medications Medication Instructions Recorded Confirmed Type albuterol sulfate 2 puff INHALATION QID PRN 01/15/20 09/23/20 History benzonatate 100 mg PO BID PRN 01/15/20 09/23/20 History clonidine HCl 0.1 mg PO BID 01/15/20 09/23/20 History meclizine 25 mg PO TID PRN 01/15/20 09/23/20 History nifedipine 90 mg PO BID 01/15/20 09/23/20 History omeprazole 20 mg PO BID PRN 01/15/20 09/23/20 History pravastatin 80 mg PO QPM 01/15/20 09/23/20 History sertraline 100 mg PO QAM 01/15/20 09/23/20 History apixaban [Eliquis] 5 mg PO BID 09/23/20 09/23/20 History bumetanide 1 mg PO DAILY 09/23/20 09/23/20 History diphenhydramine-acetaminophen 2 tab PO HS PRN 09/23/20 09/23/20 History [Tylenol PM Extra Strength] epinephrine 0.3 mg IM UD PRN 09/23/20 09/23/20 History [id number]-tzwmneoke-[id number] 1 ea INHALATION DAILY 09/23/20 09/23/20 History [Trelegy Ellipta] gabapentin 100 mg PO TID 09/23/20 09/23/20 History guaifenesin [Mucinex] 600 mg PO BID 09/23/20 09/23/20 History hydrocodone-acetaminophen 1 tab PO Q8 PRN 09/23/20 09/23/20 History insulin detemir U-100 [Levemir 30 unit SUBCUT HS 09/23/20 09/23/20 History U-100 Insulin] ipratropium-albuterol 3 ml INHALATION Q6 PRN 09/23/20 09/23/20 History losartan [Cozaar] 50 mg PO DAILY 09/23/20 09/23/20 History metoprolol tartrate 12.5 mg PO BID 09/23/20 09/23/20 History nitroglycerin [Nitrostat] 0.4 mg SUBLINGUAL UD 09/23/20 09/23/20 History semaglutide [Ozempic] 0.25 mg SUBCUT UD 09/23/20 09/23/20 History Patient History Medical History Asthma CKD (chronic kidney disease) stage 3, GFR 30-59 ml/min Depression Diabetes mellitus Diabetes mellitus, type II Diabetic neuropathy Diabetic retinopathy GERD (gastroesophageal reflux disease) History of PSVT (paroxysmal supraventricular tachycardia) HLD (hyperlipidemia) HTN (hypertension) Osteoporosis Paroxysmal atrial fibrillation Sick sinus syndrome Surgical History History of History of cholecystectomy History of colonoscopy History of esophagogastroduodenoscopy (EGD) History of sinus surgery S/P placement of cardiac pacemaker Family History Father Coronary heart disease, Onset Age: 62 Mother Stroke, Onset Age: 77 Social History Smoking Status: Never smoker Second Hand Exposure: No; Do You Dip or Chew Tobacco: No; Tobacco Cessation Education Requested by Patient: No Hx Alcohol Use: No Hx Substance Use: No Preferred Language: Yi Communication Ability: Effective User Experience Manager Required: No Beliefs That Will Affect Care: None marital status: / Current Living Situation: Alone Other Information That Helps Us Care for You: No Feels Safe at Home: Yes Safety Concerns: Feels Safe At This Time Assistive Devices: Cane Review of Systems Review of Systems: All systems reviewed & are unremarkable except as noted in HPI & below Nothing additional to add. Physical Exam Physical Exam: Charted vital signs appear to be stable. Physical exam not completed as per protocol. Results & Data ([facility]) Vital Signs (Past 12 Hours) Vital Signs Temp Pulse Resp BP BP Pulse Ox 09/25/20 11:03 36.7 C 63 19 131/71 97 09/25/20 08:00 36.7 C 64 20 160/79 H 98 09/25/20 03:37 37.4 C 77 19 144/83 H 99 Laboratory Results Laboratory Results - last 24 hr 09/24/20 09/24/20 09/25/20 16:04 20:37 07:27 Sodium Potassium Chloride Carbon Dioxide Anion Gap BUN Creatinine Est Cr Clr Drug Dosing Est GFR ( Amer) Est GFR (Non-Af Amer) BUN/Creatinine Ratio Glucose POC Glucose 98 205 H 259 H Calcium 09/25/20 09/25/20 10:44 11:47 Sodium 134 L Potassium 4.1 Chloride 103 Carbon Dioxide 24 Anion Gap 7.0 BUN 34 H Creatinine 1.22 H Est Cr Clr Drug Dosing 48.0 Est GFR ( Amer) 50.2 Est GFR (Non-Af Amer) 43.3 BUN/Creatinine Ratio 28.2 H Glucose 231 H POC Glucose 170 H Calcium 9.1 Diagnostic Findings Echocardiogram is essentially unchanged from previous studies. No new wall motion abnormalities or other findings that would suggest ischemic heart disease. Medications Administered Current Inpatient Medications Acetaminophen (Acetaminophen 325 Mg Tab) 650 mg PO Q4H PRN PRN Reason: Pain or Fever Stop: 10/23/20 18:41 Last Admin: 09/24/20 09:10 Dose: 650 mg Documented by: Hydrocodone Bitart/Acetaminophen (Hydrocodone/Acetamophen 5/325mg Tab) 1 tab PO Q8 PRN PRN Reason: Pain Stop: 10/07/20 18:41 Last Admin: 09/24/20 20:58 Dose: 1 tab Documented by: Albuterol (Albuterol Hfa 8 Gm Inhaler) 2 puffs INH Q6H PRN PRN Reason: Shortness Of Breath Or Wheezing Stop: 10/23/20 18:41 Apixaban (Apixaban 5 Mg Tablet) 5 mg PO BID PATRICK Stop: 10/23/20 20:59 Last Admin: 09/25/20 08:05 Dose: 5 mg Documented by: Benzonatate (Benzonatate 100 Mg Capsule) 100 mg PO BID PRN PRN Reason: Cough Stop: 10/23/20 18:41 Bumetanide (Bumetanide 1 Mg Tab) 1 mg PO DAILY PATRICK Stop: 10/24/20 08:59 Last Admin: 09/25/20 08:06 Dose: 1 mg Documented by: Clonidine HCl (Clonidine Hcl 0.1 Mg Tab) 0.1 mg PO BID PATRICK Stop: 10/24/20 08:59 Last Admin: 09/25/20 08:15 Dose: 0.1 mg Documented by: Dextrose (Dextrose 50% 50 Ml Syringe) 25 - 50 ml IV UD PRN; Protocol PRN Reason: Hypoglycemia Protocol Stop: 10/23/20 18:41 Fluticasone Furoate (Fluticasone Furoate 100mcg 14 Puffs/Inhaler) 1 puffs INH DAILY PATRICK Stop: 10/24/20 08:59 Last Admin: 09/25/20 08:12 Dose: 1 puffs Documented by: Gabapentin (Gabapentin 100 Mg Cap) 100 mg PO TID PATRICK Stop: 10/23/20 20:59 Last Admin: 09/25/20 08:06 Dose: 100 mg Documented by: Glucagon (Glucagon For Inj 1 Mg Vial) 1 mg SQ UD PRN; Protocol PRN Reason: Hypoglycemia Protocol Stop: 10/23/20 18:41 Glucose (Glucose 10 Tabs/Tube) 4 - 8 tabs PO UD PRN; Protocol PRN Reason: Hypoglycemia Protocol Stop: 10/23/20 18:41 Glucose (Glucose 40% Gel 15 Gm Tube) 15 - 30 gm PO UD PRN; Protocol PRN Reason: Hypoglycemia Protocol Stop: 10/23/20 18:41 Insulin Aspart (Insulin Aspart 100 Units/Ml 3 Ml Pen) 0 units SC ACHS PATRICK Stop: 10/23/20 20:59 Last Admin: 09/25/20 08:04 Dose: 11 units Documented by: Insulin Glargine (Insulin Glargine Solostar 100 Units/Ml 3 Ml Pen) 0 - 15 units SC BID PATRICK Stop: 10/23/20 20:59 Last Admin: 09/25/20 09:05 Dose: 15 units Documented by: Losartan Potassium (Losartan Potassium 50 Mg Tab) 50 mg PO DAILY [facility] Stop: 10/24/20 08:59 Last Admin: 09/25/20 08:10 Dose: 50 mg Documented by: Metoprolol Tartrate (Metoprolol Tartrate 25 Mg Tab) 12.5 mg PO BID PATRICK Stop: 10/23/20 20:59 Last Admin: 09/25/20 08:07 Dose: 12.5 mg Documented by: Miscellaneous (Carbohydrates For Hypoglycemia ) 15 - 30 gm PO UD PRN PRN Reason: Hypoglycemia Protocol Stop: 10/23/20 18:41 Nifedipine (Nifedipine Extended Rel 30 Mg Tabcr) 90 mg PO BID [facility] Stop: 10/24/20 08:59 Last Admin: 09/25/20 08:10 Dose: 90 mg Documented by: Nitroglycerin (Nitroglycerin Sl 0.4 Mg/Tab Tab) 0.4 mg SL UD PRN PRN Reason: Chest Pain Stop: 10/23/20 18:41 Last Admin: 09/24/20 09:20 Dose: 0.4 mg Documented by: Polyethylene Glycol (Polyethylene (Miralax) 17 Gm Pack) 17 gm PO DAILY PRN PRN Reason: Constipation Stop: 10/23/20 18:41 Pravastatin Sodium (Pravastatin Sod 40 Mg Tab) 80 mg PO QPM [facility] Stop: 10/23/20 20:59 Last Admin: 09/24/20 20:57 Dose: 80 mg Documented by: Sertraline HCl (Sertraline Hcl 100 Mg Tablet) 100 mg PO QAM [facility] Stop: 10/24/20 08:59 Last Admin: 09/25/20 08:11 Dose: 100 mg Documented by: Umeclidinium/Vilanterol (Umeclidinium/Vilanterol 62.5/25mcg 7 Puffs/Inhaler) 1 puffs INH DAILY PATRICK Stop: 10/24/20 08:59 Last Admin: 09/25/20 08:12 Dose: 1 puffs Documented by:
[2020-09-25] MEDS: HYDROCODONE/ACETAMOPHEN 5/325MG TAB PO PRN (17:36)
--- NOTE | 2020-09-25 19:05 | Hospitalist Progress Note ---
Date of Service September 25, 2020 Assessment & Plan (1) Chest pain: Pt is 74 y/o F with PMH PAF on Eliquis, sick sinus syndrome s/p pacemaker, HTN, dyslipidemia, asthma, insulin dependent DM II presented to ER with c/o ongoing chest pressure for past 3-4 months. Recently noted increased SOB. Pt r eferred from cardiology clinic today. Pt with CP for 3-4 months described as chest pressure. Possible related to COVID 19 Troponin x 3 negative EKG showed no ischemic changes Continue statin and beta kenney Last echo [facility] 12/2019: EF 60-65%, Moderate aortic valve sclerosis without stenosis. Mild tricuspid regurgitation with evidence of severe pulmonary hypertension. Last Lexiscan nuclear stress report summary 11/2019: Myocardial perfusion imaging normal. No regional wall motion abnormalities. Cardiology on board Case discussed with cardiology and think her symptoms might be related to COVID 19. doubt it is cardiac etiology as per cardio Continue prednisone 20mg daily Echo showed no wall LV wall motion abnormality with EF 55-60% (2) COVID-19: Recently increased SOB, fatigue, body aches, weakness, dizziness past 2 weeks. Outpatient 09/09/20 negative Covid test and negative CXR and was treated with prednisone. +COVID 19 exposure - caregiver tested positive 09/07/20. 1st dose COVID 19 vaccine on 09/16/20 CXR showed no acute infiltrate Not requiring oxygen at this time. Sats 98% on room air Albuterol inhaler prn (3) Paroxysmal atrial fibrillation: On Eliquis Continue Eliquis, metoprolol tartrate (4) Sick sinus syndrome: S/P pacemaker Recent outpatient pacemaker demonstrated atrial fibrillation/flutter (5) Asthma: Continue home inhalers Albuterol prn (6) HTN (hypertension): Pt noted elevated BP in ER. Is due for night doses of medications losartan, nifedipine, metoprolol tartrate, clonidine (7) Diabetes mellitus, type II: A1c: 9.9 on 07/30/20 Hold home Levemir, Ozempic Basal bolus insulin per protocol (8) CKD (chronic kidney disease) stage 3, GFR 30-59 ml/min: Cr: 1.1. Baseline Cr: 1.2 Monitor renal functions, avoid nephrotoxic agents as possible (9) HLD (hyperlipidemia): Continue statin DVT Prophylaxis -On Eliquis Full Code as per discussion with pt Follows with Dr Quintanilla for routine care Admission and Anticipated Discharge Date Admission Date: September 23, 2020 Subjective Pt was seen and examined for follow up of chest pressure Lying in bed with no acute distress Pt said that she continues to have continue chest pressure She said that she just found out that there were couple residents at her facility that tested positive for COVID 19 She said that when she takes a deep breath that she feels some tenderness across her lower abdomen She denies any cough or shortness of breath Review of Systems Review of Systems: All systems reviewed & are unremarkable except as noted in Subjective Physical Exam Physical Exam: General- No acute distress Head- atraumatic Eyes- PERRL, EOMI, ENT- oropharynx clear Neck- supple, no JVD Lungs- clear to auscultation Heart- regular rhythm; no murmur Abdomen- normal bowel sounds, soft, nontender Extremities- no calf tenderness Neuro- alert, oriented x 3; PERRL, EOMI; no facial palsy; no dysarthria Skin- warm & dry Results & Data Results & Data ([facility]) Vital Signs (Past 12 Hours) Vital Signs Temp Pulse Resp BP BP Pulse Ox 09/25/20 13:06 37.1 C 66 19 150/81 H 100 09/25/20 11:03 36.7 C 63 19 131/71 97 09/25/20 08:00 36.7 C 64 20 160/79 H 98
[2020-09-25] MEDS: PRAVASTATIN SOD 40 MG TAB PO SCH (19:50)
[2020-09-25] MEDS: MoRPHine SULFATE 2 MG/ML CARP IV PRN (19:52)
[2020-09-26] MEDS: predniSONE 20 MG TAB PO SCH ×2 (00:38→08:32)
[2020-09-26] MEDS ORDERED: INSULIN ASPART 100 UNITS/ML 3 ML PEN SC SCH (06:40)
[2020-09-26] MEDS ORDERED: INSULIN GLARGINE SOLOSTAR 100 UNITS/ML 3 ML PEN SC STA (06:42)
[2020-09-26] MEDS: INSULIN ASPART 100 UNITS/ML 3 ML PEN SC SCH ×4 (06:49→20:37)
[2020-09-26 07:31] LABS: Creatinine Clr Calc Pharmacy 47.2 ml/min; Est GFR (African American) 48.7
[2020-09-26] MEDS: cloNIDine HCL 0.1 MG TAB PO SCH ×2 (08:29→19:40)
[2020-09-26] MEDS: HYDROCODONE/ACETAMOPHEN 5/325MG TAB PO PRN ×2 (08:29→16:51)
[2020-09-26] MEDS: FLUTICASONE FUROATE 100MCG 14 PUFFS/INHALER INH SCH (08:30)
[2020-09-26] MEDS: NIFEdipine EXTENDED REL 30 MG TABCR PO SCH ×2 (08:30→19:39)
[2020-09-26] MEDS: SERTRALINE HCL 100 MG TABLET PO SCH (08:30)
[2020-09-26] MEDS: LOSARTAN POTASSIUM 50 MG TAB PO SCH (08:30)
[2020-09-26] MEDS: UMECLIDINIUM/VILANTEROL 62.5/25MCG 7 PUFFS/INHALER INH SCH (08:30)
[2020-09-26] MEDS: BUMETANIDE 1 MG TAB PO SCH (08:30)
[2020-09-26] MEDS: METOPROLOL TARTRATE 25 MG TAB PO SCH ×2 (08:31→19:38)
[2020-09-26] MEDS: APIXABAN 5 MG TABLET PO SCH ×2 (08:35→19:40)
[2020-09-26] MEDS: GABAPENTIN 100 MG CAP PO SCH ×3 (08:35→19:41)
--- NOTE | 2020-09-26 18:32 | Hospitalist Progress Note ---
Date of Service September 26, 2020 Assessment & Plan (1) Chest pain: Pt is 74 y/o F with PMH PAF on Eliquis, sick sinus syndrome s/p pacemaker, HTN, dyslipidemia, asthma, insulin dependent DM II presented to ER with c/o ongoing chest pressure for past 3-4 months. Recently noted increased SOB. Pt r eferred from cardiology clinic today. Pt with CP for 3-4 months described as chest pressure. Possible related to COVID 19 Troponin x 3 negative EKG showed no ischemic changes Continue statin and beta kenney Last echo [facility] 12/2019: EF 60-65%, Moderate aortic valve sclerosis without stenosis. Mild tricuspid regurgitation with evidence of severe pulmonary hypertension. Last Lexiscan nuclear stress report summary 11/2019: Myocardial perfusion imaging normal. No regional wall motion abnormalities. Cardiology on board Case discussed with cardiology and think her symptoms might be related to COVID 19. doubt it is cardiac etiology as per cardio Continue prednisone 20mg daily Echo showed no wall LV wall motion abnormality with EF 55-60% (2) COVID-19: Recently increased SOB, fatigue, body aches, weakness, dizziness past 2 weeks. Outpatient 09/09/20 negative Covid test and negative CXR and was treated with prednisone. +COVID 19 exposure - caregiver tested positive 09/07/20. 1st dose COVID 19 vaccine on 09/16/20 CXR showed no acute infiltrate Not requiring oxygen at this time. Sats 98% on room air Albuterol inhaler prn (3) Paroxysmal atrial fibrillation: On Eliquis Continue Eliquis, metoprolol tartrate (4) Sick sinus syndrome: S/P pacemaker Recent outpatient pacemaker demonstrated atrial fibrillation/flutter (5) Asthma: Continue home inhalers Albuterol prn (6) HTN (hypertension): Pt noted elevated BP in ER. Is due for night doses of medications losartan, nifedipine, metoprolol tartrate, clonidine (7) Diabetes mellitus, type II: A1c: 9.9 on 07/30/20 Hold home Levemir, Ozempic Basal bolus insulin per protocol (8) CKD (chronic kidney disease) stage 3, GFR 30-59 ml/min: Cr: 1.1. Baseline Cr: 1.2 Monitor renal functions, avoid nephrotoxic agents as possible (9) HLD (hyperlipidemia): Continue statin DVT Prophylaxis -On Eliquis Full Code as per discussion with pt Follows with Dr Quintanilla for routine care Admission and Anticipated Discharge Date Admission Date: September 23, 2020 Subjective Pt was seen and examined for follow up of chest pressure Lying in bed with no acute distress Pt said that chest pain improves Her blood sugar has been elevated Denies any cough, palpitation, dizziness or shortness of breath Review of Systems Review of Systems: All systems reviewed & are unremarkable except as noted in Subjective Physical Exam Physical Exam: General- No acute distress Head- atraumatic Eyes- PERRL, EOMI, ENT- oropharynx clear Neck- supple, no JVD Lungs- clear to auscultation Heart- regular rhythm; no murmur Abdomen- normal bowel sounds, soft, nontender Extremities- no calf tenderness Neuro- alert, oriented x 3; PERRL, EOMI; no facial palsy; no dysarthria Skin- warm & dry Results & Data Results & Data ([facility]) Vital Signs (Past 12 Hours) Vital Signs Temp Pulse Pulse Resp BP Pulse Ox 09/26/20 16:56 36.6 C 68 18 156/89 H 96 09/26/20 12:04 36.6 C 67 16 151/82 H 97 09/26/20 07:30 60 09/26/20 07:26 36.7 C 71 22 154/94 H 98
[2020-09-26] MEDS ORDERED: PHARMACY GLYCEMIC MGMT CONSULT PRN (18:45)
[2020-09-26] MEDS: MoRPHine SULFATE 2 MG/ML CARP IV PRN (19:33)
[2020-09-26] MEDS: PRAVASTATIN SOD 40 MG TAB PO SCH (19:40)
[2020-09-26] MEDS: INSULIN GLARGINE SOLOSTAR 100 UNITS/ML 3 ML PEN SQ SCH (20:37)
[2020-09-26] MEDS ORDERED: INSULIN GLARGINE SOLOSTAR 100 UNITS/ML 3 ML PEN SQ SCH (21:00)
[2020-09-27] MEDS: INSULIN ASPART 100 UNITS/ML 3 ML PEN SC SCH ×4 (00:56→12:42)
[2020-09-27] MEDS: HYDROCODONE/ACETAMOPHEN 5/325MG TAB PO PRN (07:36)
[2020-09-27] MEDS: METOPROLOL TARTRATE 25 MG TAB PO SCH (08:21)
[2020-09-27] MEDS: GABAPENTIN 100 MG CAP PO SCH ×2 (08:22→12:43)
[2020-09-27] MEDS: APIXABAN 5 MG TABLET PO SCH (08:22)
[2020-09-27] MEDS: NIFEdipine EXTENDED REL 30 MG TABCR PO SCH (08:22)
[2020-09-27] MEDS: BUMETANIDE 1 MG TAB PO SCH (08:23)
[2020-09-27] MEDS: UMECLIDINIUM/VILANTEROL 62.5/25MCG 7 PUFFS/INHALER INH SCH (08:23)
[2020-09-27] MEDS: SERTRALINE HCL 100 MG TABLET PO SCH (08:23)
[2020-09-27] MEDS: FLUTICASONE FUROATE 100MCG 14 PUFFS/INHALER INH SCH (08:23)
[2020-09-27] MEDS: INSULIN GLARGINE SOLOSTAR 100 UNITS/ML 3 ML PEN SQ SCH (08:24)
[2020-09-27] MEDS: cloNIDine HCL 0.1 MG TAB PO SCH (08:26)
[2020-09-27] MEDS ORDERED: predniSONE 10 MG TABLET PO SCH (09:00)
[2020-09-27] MEDS ORDERED: INSULIN GLARGINE SOLOSTAR 100 UNITS/ML 3 ML PEN SQ SCH (09:00)
--- NOTE | 2020-09-27 10:48 | Pharmacy Report ---
Pharmacy Glycemic Short Note 2 - Date of Service September 27, 2020 - Glycemic Short BSG Results (Last 24 hours): 09/26/20 09/26/20 09/26/20 12:01 16:51 20:29 POC Glucose 268 H 323 H* 204 H 09/27/20 09/27/20 09/27/20 00:11 03:48 07:17 POC Glucose 101 H 97 135 H OUTPATIENT ANTIDIABETIC REGIMEN: * Levemir 30 units SC HS * Ozempic 0.25 mg SC weekly (patient has not started yet) * HbA1c pending ASSESSMENT: * 74 yo F admitted on 09/23/20 secondary to Covid pneumonia. Pharmacy was consulted to assist with inpatient glycemic management last evening. * Glycemic control was adequate on 09/23 & 09/24. Patient was started on Prednisone for Covid on 09/25 and BSGs started to trend upwards leading to a pharmacy consult last evening. * She received a total of 116 units of insulin yesterday (45 units basal + 71 units bolus) * BSGs were [phone] mg/dL, uncontrolled. Overnight checks were 101 and 97 mg/dL. * Fasting BSG improved to 135 mg/dL this AM * Significant drop in AM fasting on 45 units of basal so will reduce basal slightly today * Continue with current Novolog parameters (weight & stress of 3) PLAN FOR INPATIENT GLYCEMIC CONTROL: * Basal insulin * Lantus 15-25 units SC BID * 15 units for BSG < 140; 20 units for BSG 140-180; 25 units for BSG > 180 * Bolus insulin * NovoLog per scale ACHS or Q6hrs while NPO * Goal Range: Low 110 mg/dL - High 140 mg/dL * Correction Factor: 15 mg/dL/unit * Nutritional / Prandial insulin per carb ratio of 1 unit per 5 grams CHO consumed PLAN FOR DISCHARGE: * To be determined
--- NOTE | 2020-09-27 14:04 | Discharge Summary ---
Date of Service September 27, 2020 Admission HPI Per Admitting Provider Pt is 74 y/o F with PMH PAF on Eliquis, sick sinus syndrome s/p pacemaker, HTN, dyslipidemia, asthma, insulin dependent DM II presented to ER with c/o CP. Pt referred from cardiology clinic today. Pt with CP for 3-4 months described as chest pressure. Unsure if nitro SL relieves discomfort. She reports becoming aware that her caregiver tested positive for COVID-19 on 09/07/20. On 09/08/20 pt reports increased fatigue, increased SOB, increased chest tightness and body aches. Pt SOB with walking and talking. Pt had negative COVID-19 test on 09/09/20. She was prescribed prednisone. She has been using albuterol without much noted relief. Last week feeling dizzy and reports almost falling down. She also fells she has been close to falling secondary to weakness. uses 2 pillows at baseline. Denies known fever/chills, diaphoresis, N/V/D/C, JUSTIN, vision changes, neck pain, increased orthopnea, palpitations, cough, sore throat, choking, otalgia, rhinorrhea, abdominal pain, paresthesias, increased extremity edema, rashes, urinary symptoms. Admission Exam Per Admitting Provider General- No acute distress Head- atraumatic Eyes- PERRL, EOMI, ENT- oropharynx clear Neck- supple, no JVD Lungs- clear to auscultation Heart- regular rhythm; no murmur Abdomen- normal bowel sounds, soft, nontender Extremities- no calf tenderness Neuro- alert, oriented x 3; PERRL, EOMI; no facial palsy; no dysarthria Skin- warm & dry Principal Diagnosis Chest pain: COVID-19: Paroxysmal atrial fibrillation: Sick sinus syndrome: Asthma: HTN (hypertension): Diabetes mellitus, type II: CKD (chronic kidney disease) stage 3, GFR 30-59 ml/min: HLD (hyperlipidemia): Discharge Exam General- No acute distress Head- atraumatic Eyes- PERRL, EOMI, ENT- oropharynx clear Neck- supple, no JVD Lungs- clear to auscultation Heart- regular rhythm; no murmur Abdomen- normal bowel sounds, soft, nontender Extremities- no calf tenderness Neuro- alert, oriented x 3; PERRL, EOMI; no facial palsy; no dysarthria Skin- warm & dry Discharge Data Allergies Allergy/AdvReac Type Severity Reaction Status Date / Time No Known Allergies Allergy Mild NONE Unverified 09/23/20 17:24 Consultations 09/23/20 16:45 ED Decision to Admit Stat 09/24/20 08:00 Consult Cardiology Routine Ordered Studies XR chest 1V portable CLINICAL HISTORY: Atypical chest pain COMPARISON STUDY: 01/09/2020 FINDINGS: The cardiac and mediastinal contours remain stable. There is mild aortic tortuosity/ectasia. There is a left subclavian dual-chamber central venous pacemaker. There is no failure. There is no focal pulmonary consolidation. There are no pleural effusions.[ IMPRESSION: No active disease in the chest. ACT 112: Negative or not required by law. Electronically signed by: Garret Gallagher M.D. 09/23/2020 2:36 PM Dictated: 09/23/20 1436Transcribed: 09/23/20 1436 Hospital Course (1) Chest pain: Pt is 74 y/o F with PMH PAF on Eliquis, sick sinus syndrome s/p pacemaker, HTN, dyslipidemia, asthma, insulin dependent DM II presented to ER with c/o ongoing chest pressure for past 3-4 months. Recently noted increased SOB. Pt referred from cardiology clinic today. Pt with CP for 3-4 months described as chest pressure. Possible related to COVID 19 Troponin x 3 negative EKG showed no ischemic changes Continue statin and beta kenney Last echo [facility] 12/2019: EF 60-65%, Moderate aortic valve sclerosis without stenosis. Mild tricuspid regurgitation with evidence of severe pulmonary hypertension. Last Lexiscan nuclear stress report summary 11/2019: Myocardial perfusion imaging normal. No regional wall motion abnormalities. Cardiology on board Case discussed with cardiology and think her symptoms might be related to COVID 19. doubt it is cardiac etiology as per cardio On prednisone 20mg daily during the hospital course, will not continue prednisone on discharge Pt would like to go home today because she just lost her sister in law (She said that her daughter will come to [place] to stay with her tonight. Echo showed no wall LV wall motion abnormality with EF 55-60% (2) COVID-19: Recently increased SOB, fatigue, body aches, weakness, dizziness past 2 weeks. Outpatient 09/09/20 negative Covid test and negative CXR and was treated with prednisone. +COVID 19 exposure - caregiver tested positive 09/07/20. 1st dose COVID 19 vaccine on 09/16/20 CXR showed no acute infiltrate Not requiring oxygen at this time. Sats 98% on room air Albuterol inhaler prn Clinically stable (3) Paroxysmal atrial fibrillation: On Eliquis Continue Eliquis, metoprolol tartrate (4) Sick sinus syndrome: S/P pacemaker Recent outpatient pacemaker demonstrated atrial fibrillation/flutter (5) Asthma: Continue home inhalers Albuterol prn (6) HTN (hypertension): Pt noted elevated BP in ER. Is due for night doses of medications losartan, nifedipine, metoprolol tartrate, clonidine (7) Diabetes mellitus, type II: A1c: 9.9 on 07/30/20 Hold home Levemir, Ozempic Basal bolus insulin per protocol and lantus Will resume Levemir and Ozempic on discharge (8) CKD (chronic kidney disease) stage 3, GFR 30-59 ml/min: Cr: 1.1. Baseline Cr: 1.2 Monitor renal functions, avoid nephrotoxic agents as possible (9) HLD (hyperlipidemia): Continue statin DVT Prophylaxis -On Eliquis Full Code as per discussion with pt Follows with Dr Quintanilla for routine care Total Time Total Time Spent Total Time Spent (In Minutes): 35 minutes Total Time Includes: Examination of the Patient, Discharge Planning, Medication Reconciliation, Communication With Other Providers and Other Discharge Plan Discharge Items Patient Disposition: Home - Self-Care Reason For Visit: CP, +COVID Discharge Diagnosis: Chest pain: COVID-19: Paroxysmal atrial fibrillation: Sick sinus syndrome: Asthma: HTN (hypertension): Diabetes mellitus, type II: CKD (chronic kidney disease) stage 3, GFR 30-59 ml/min: HLD (hyperlipidemia): Activity: Resume your previous activity Non-emergency contact: Primary Care Provider and Director [employer] Call non-emergency contact if: you have any medication questions and your symptoms worsen Follow-up/Referrals: Phyllis Quintanilla MD [Primary Care Provider] - 09/29/20 11:20 am (Date & Time 09/29/2020 11:20 AM Provider Phyllis Quintanilla MD Department General Internal Medicine [facility] PLEASE NOTE THAT THIS IS A TELEPHONE APPOINTMENT. YOUR PROVIDER WILL CALL YOU AT THE APPOINTMENT TIME. IF YOU HAVE ANY QUESTIONS REGARDING THIS APPOINTMENT, PLEASE CALL ) Diet: Carb Consistent or DM2 Addtl Attending Provider Instructions: Follow up with your primary care provider dr. Quintanilla on 09/29/2020 at 11:20 AM at the General Internal Medicine [facility] (PLEASE NOTE THAT THIS IS A TELEPHONE APPOINTMENT) Continue to wear mask and contact isolation for 1 week Seek medical attention if your develops any shortness of breath Fall precaution Continue monitor your blood sugar and have your blood sugar log at your next appointment with your provider Check BMP in 1 week to monitor renal function Your Hba1c result pending, your physician will give you the result at your next appointment. Home Isolation COVID-19 Instructions The following information about Home Isolation is from the CDC Website: https://www.cdc.gov/coronavirus/2019-ncov/hcp/zfjhbnih-belooal-znsgqi.html Stay home except to get medical care People who are mildly ill with COVID-19 are able to isolate at home during their illness. You should restrict activities outside your home, except for getting medical care. Do not go to work, school, or public areas. Avoid using public transportation, ride-sharing, or taxis. Separate yourself from other people and animals in your home People: As much as possible, you should stay in a specific room and away from other people in your home. Also, you should use a separate bathroom, if available. Animals: You should restrict contact with pets and other animals while you are sick with COVID-19, just like you would around other people. Although there have not been reports of pets or other animals becoming sick with COVID-19, it is still recommended that people sick with COVID-19 limit contact with animals until more information is known about the virus. When possible, have another member of your household care for your animals while you are sick. If you are sick with COVID-19, avoid contact with your pet, including petting, snuggling, being kissed or licked, and sharing food. If you must care for your pet or be around animals while you are sick, wash your hands before and after you interact with pets and wear a face mask. Call ahead before visiting your doctor If you have a medical appointment, call the healthcare provider and tell them that you have or may have COVID-19. This will help the healthcare providers office take steps to keep other people from getting infected or exposed. Wear a face mask You should wear a face mask when you are around other people (e.g., sharing a room or vehicle) or pets and before you enter a healthcare providers office. If you are not able to wear a face mask (for example, because it causes trouble breathing), then people who live with you should not stay in the same room with you, or they should wear a face mask if they enter your room. Cover your coughs and sneezes Cover your mouth and nose with a tissue when you cough or sneeze. Throw used tissues in a lined trash can. Immediately wash your hands with soap and water for at least 20 seconds or, if soap and water are not available, clean your hands with an alcohol-based hand vehicle cost engineer that contains at least 60% alcohol. Clean your hands often Wash your hands often with soap and water for at least 20 seconds, especially after blowing your nose, coughing, or sneezing; going to the bathroom; and before eating or preparing food. If soap and water are not readily available, use an alcohol-based hand vehicle cost engineer with at least 60% alcohol, covering all surfaces of your hands and rubbing them together until they feel dry. Soap and water are the best option if hands are visibly dirty. Avoid touching your eyes, nose, and mouth with unwashed hands. Avoid sharing personal household items You should not share dishes, drinking glasses, cups, eating utensils, towels, or bedding with other people or pets in your home. After using these items, they should be washed thoroughly with soap and water. Clean all high-touch surfaces everyday High touch surfaces include counters, tabletops, doorknobs, bathroom fixtures, toilets, phones, keyboards, tablets, and bedside tables. Also, clean any surfaces that may have blood, stool, or body fluids on them. Use a household cleaning spray or wipe, according to the label instructions. Labels contain instructions for safe and effective use of the cleaning product including precautions you should take when applying the product, such as wearing gloves and making sure you have good ventilation during use of the product. Monitor your symptoms Seek prompt medical attention if your illness is worsening (e.g., difficulty breathing).Beforeseeking care, call your healthcare provider and tell them that you have, or are being evaluated for, COVID-19. Put on a face mask before you enter the facility. These steps will help the healthcare providers office to keep other people in the office or waiting room from getting infected or exposed. Ask your healthcare provider to call the local or state health department. Persons who are placed under active monitoring or facilitated self- monitoring should follow instructions provided by their local health department or occupational health professionals, as appropriate. When working with your local health department check their available hours. If you have a medical emergency and need to call 911, notify the dispatch personnel that you have, or are being evaluated for COVID-19. If possible, put on a face mask before emergency medical services arrive. Discontinuing home isolation Patients with confirmed COVID-19 should remain under home isolation precautions until the risk of secondary transmission to others is thought to be low. The decision to discontinue home isolation precautions should be made on a [id number] basis, in consultation with healthcare providers and state and [facility] health departments. Coronavirus disease 2019 (COVID-19) is a virus that causes a respiratory illnes s. It is caused by a coronavirus called 2019 novel coronavirus (2019-nCoV). There are many types of coronavirus. Coronaviruses are a very common cause of bronchitis. They may sometimes cause lung infection(pneumonia). Symptoms can range from mild to severe respiratory illness. These viruses are also foundin some animals. COVID-19 was first found in people in [facility], in late 2019. In 2020, several cases of COVID-19 have been confirmed in the [place] Public health officials are working to find the source. How the virus spreads is not yet fully known. It may be spread through droplets of fluid that a person coughs or sneezes into the air. It may be spread if you touch a surface with virus on it, such as a handle or object, and then touch your mouth. What are the symptoms of COVID-19? Some people have no symptoms or mild symptoms. Symptoms may appear 2 to 14 days after contact with the virus. Symptoms can include: Fever Coughing Trouble breathing What are possible complications from COVID-19? In many cases, this virus can cause infection (pneumonia) in both lungs. In some cases, this can cause . How is COVID-19 diagnosed? Your healthcare provider will ask about your symptoms. He or she will also ask about your recent travel and contact with sick people. Testing for the virus is only done through the CDC. If yourhealthcare provider thinks you may have COVID- 19, he or she will work with your local health department and the CDC on testing. Follow all instructions from your healthcare provider. COVID-19 is diagnosed by: Nasal and throat swab. A cotton-tipped swab is wiped inside your nose or throat. This is done to check for viruses in your nasal mucus. Sputum culture. A small sample of mucus coughed from your lungs (sputum) is collected if you have a cough. It is checked for the virus. How is COVID-19 treated? There is currently no medicine to treat the virus. Treatment is done to help your body while it fights the virus. This is known as supportive care. Supportive care may include: Pain medicine. These include acetaminophen and ibuprofen. They are used to help ease pain and reduce fever. Bed rest. This helps your body fight the illness. For severe illness, you may need to stay in the hospital. Care during severe illness may include: IV (intravenous) fluids.These are given through a vein to help keep your body hydrated. Oxygen. Supplemental oxygen or ventilation with a breathing machine (ventilator) may be given. This is done to keep enough oxygen in your body. Are you at risk for COVID-19? If youve been to a place where people have been sick with this virus, you are at risk for infection. You are at risk if you: Recently traveled to an affected area Had contact with a sick person who recently traveled to this area Had contact with a person who was diagnosed with COVID-19 How can COVID-19 be prevented? There is no vaccine yet. The best prevention is to not have contact with the virus. The CDC advises that people should not travel to areas where there are COVID-19 outbreaks right now for any reason that is not urgent. To help prevent spreading the infection, wash your hands often, or use an alcohol-basedhand vehicle cost engineer. If you are in an area with COVID-19: Wash your hands often. Or use an alcohol-based hand vehicle cost engineer often. Only touch your eyes, nose, or mouth with clean hands. Dont have contact with people who are sick. Follow local instructions about being in public. For example, you may be told to not use public transport for a period of time. Stay away from markets that have live or animals. Wash your hands after touching any animals. Don't touch animals that may be sick. Dont share eating or drinking tools with sick people. Dont kiss someone who is sick. Clean surfaces often with disinfectant. If you were in an area with COVID-19 in the last 14 days: Call your healthcare provider. He or she can talk with local health staff to see what action may be needed. Follow all instructions from your provider. Take your temperature every morning and evening for at least 14 days. This is to check for fever. Keep a record of the readings. Keep watch for symptoms of the virus. Tell your provider right away if you have symptoms. If you were in an area with COVID-19 and have a fever or other symptoms: Dont panic. Keep in mind that other illnesses can cause similar symptoms. Stay away from work, school, and public places. Limit physical contact with family members. Don't kiss anyone or share eating or drinking utensils. Clean surfaces you touch with disinfectant. This is to help prevent the virus from spreading. Call your healthcare provider. Explain that you have been exposed to COVID-19 and have symptoms. Do this before going to any hospital. Wait for instructions. Keep in mind that healthcare staff may wear protective equipment such as masks, gowns, gloves, and eye protection. You may be put in a separate room. This is to prevent the possible virus from spreading. Tell the healthcare staff about recent travel. This includes local travel on public transport. Staff may need to find other people you have been in contact with. Follow all instructions the healthcare staff give you. If you have been diagnosed with COVID-19 Follow all instructions from your healthcare provider. Dont leave your home, except to get medical care. Call your healthcare providers office before going. They can prepare and give you instructions. This will help prevent the virus from spreading. Dont go to work, school, or public areas. Dont use public transport or taxis. Stay away from other people in your home. Have them wear face masks around you. Dont share household items or food. Wear a face mask if you can. This includes at home or in a medical facility. Cover your face with a tissue when you cough or sneeze. Throw the tissue away. Wash your hands. Wash your hands often. Caregivers should: Follow all instructions from healthcare staff. Wear a face mask and protective clothing as advised. Wash hands often. Keep track of the sick persons symptoms. Clean surfaces, fabrics, and laundry thoroughly. Keep other people away from the sick person. When to call your healthcare provider Call your healthcare provider: If youve recently traveled and have symptoms If you have been diagnosed with COVID-19 and your symptoms are worse To learn more To find out more about COVID-19, visit the [facility] website at www.c dc.gov/coronavirus/2019-ncov/index.html. [employer]. [address] [place] [address], [place] [address]. All rights reserved. This information is not intended as a substitute for professional medical care. Always follow your healthcare professional's instructions. This information has been adapted from [employer] Pending Studies at Discharge: Yes Studies:: Hba1c Stand-Alone Forms: [facility] [employer], Smoking Cessation Medications and DC Order Prescriptions: Continued clonidine HCl 0.1 mg Tablet 0.1 mg PO BID RF: 0 nifedipine 90 mg Tablet Extended Release 90 mg PO BID RF: 0 sertraline 100 mg Tablet 100 mg PO QAM RF: 0 pravastatin 80 mg Tablet 80 mg PO QPM RF: 0 meclizine 25 mg Tablet 25 mg PO TID PRN (Reason: Dizziness) RF: 0 omeprazole 20 mg Capsule,Delayed Release(Dr/Ec) 20 mg PO BID PRN (Reason: Gi Upset) RF: 0 albuterol sulfate 90 mcg/actuation Hfa Aerosol Inhaler 2 puff INHALATION QID PRN (Reason: SOB) RF: 0 benzonatate 100 mg capsule 100 mg PO BID PRN (Reason: Cough) RF: 0 losartan [Cozaar] 50 mg tablet 50 mg PO DAILY RF: 0 ipratropium-albuterol 0.5 mg-3 mg(2.5 mg base)/3 mL solution for nebulization 3 ml INHALATION Q6 PRN (Reason: Shortness Of Breath Or Wheezing) RF: 0 hydrocodone-acetaminophen 5-325 mg tablet 1 tab PO Q8 PRN (Reason: Pain) RF: 0 nitroglycerin [Nitrostat] 0.4 mg tablet, sublingual 0.4 mg sublingual UD RF: 0 bumetanide 1 mg tablet 1 mg PO DAILY RF: 0 epinephrine 0.3 mg/0.3 mL auto-injector 0.3 mg IM UD PRN (Reason: SEVERE ALLERGIC REACTION) RF: 0 diphenhydramine-acetaminophen [Tylenol PM Extra Strength] 25-500 mg Tablet 2 tab PO HS PRN (Reason: Sleep) RF: 0 metoprolol tartrate 25 mg tablet 12.5 mg PO BID RF: 0 Levemir U-100 Insulin 100 unit/mL solution 30 unit SUBCUT HS RF: 0 Eliquis 5 mg tablet 5 mg PO BID RF: 0 guaifenesin [Mucinex] 600 mg Tablet Extended Release 12hr 600 mg PO BID RF: 0 Trelegy Ellipta 100-62.5-25 mcg blister with device 1 ea INHALATION DAILY RF: 0 Ozempic 0.25 mg or 0.5 mg(2 mg/1.5 mL) pen injector 0.25 mg SUBCUT UD RF: 0 gabapentin 100 mg capsule 100 mg PO TID RF: 0 Discharge Orders: Discharge Order (Routine); Ordered 09/27/20 Ordered By: Marilyn Elizalde Admission Data Admit Date/Time: 09/23/20 16:42 Attending Provider: Marilyn Elizalde Admit Provider: Marilyn Elizalde Primary Care Provider: Phyllis Quintanilla Other Providers: Marilyn Elizalde ; Joseph Mario Other Interventions: Discharge Summary Assessment (RN) Last Done: 09/27/20 14:23
[2020-09-28 07:55] LABS: Estimated Average Glucose 243 mg/dl; Hemoglobin A1C 10.1 % (4.5-5.6)
== END 2020-09-27 15:18 | disposition home or self-care (01) | DRG 179 ==
LOC: ED 14:06 → 2E 16:42